=== PATIENT | female | born 1955 | race Caucasian/White ===

== ENCOUNTER 2016-11-25 10:13 | Emergency (ER) | payer SELFPAY ==
--- NOTE | 2016-11-25 10:32 | ER Document Report ---
ED Medical Screen (RME) - General Chief Complaint: High Blood Pressure Stated Complaint: BLOOD PRESSURE PROBLEM Time Seen by Provider: 11/25/16 10:30 Notes: pt says her bp is high and she feels "disconnected" for the last two weeks. Has not seen a doctor in 7 yrs until yesterday when she went to urgent care for nail puncture to foot. she is on cipro for that. TRAVEL OUTSIDE OF THE [place] IN LAST 30 DAYS: No - Related Data Allergies/Adverse Reactions: iodine Allergy (Verified 11/25/16 10:24) Past Medical History - Social History Frequency of alcohol use: None Drug Abuse: None Renal/ Medical History: Denies: Hx Peritoneal Dialysis Physical Exam - Vital signs Vitals: Temp Pulse Resp BP Pulse Ox 98.6 F 79 16 174/80 H 99 11/25/16 10:21 11/25/16 10:21 11/25/16 10:21 11/25/16 10:21 11/25/16 10:21 Course - Vital Signs Vital signs: Temp Pulse Resp BP Pulse Ox 98.6 F 79 16 174/80 H 99 11/25/16 10:21 11/25/16 10:21 11/25/16 10:21 11/25/16 10:21 11/25/16 10:21
--- NOTE | 2016-11-25 11:32 | ER Document Report ---
ED General - General Chief Complaint: High Blood Pressure Stated Complaint: BLOOD PRESSURE PROBLEM Time Seen by Provider: 11/25/16 10:30 Notes: Patient is here because she is concerned about her high blood pressure. She was at an urgent care yesterday because of a puncture wound of her foot and her blood pressure was 199 over something. She says that she has been feeling "disconnected" off and on for a couple of weeks. She means that she feels like she has had a couple glasses of wine and she does not drink alcohol. She has never had any problem with her blood pressure and never been told that she needed to be on any medications for her blood pressure. She had her blood pressure taken about 6 months ago when it was normal then. Her vision is somewhat blurry, but she thinks she needs glasses. She does not get headaches. Patient was seen in the urgent care because she had a puncture wound of her right foot, sustained when she stepped on a nail with her sneaker on on Wednesday. The foot did well on Wednesday and Wednesday, but later Wednesday it began to swell and was that way yesterday so she went to the urgent care. They put her on Cipro and gave her a tetanus shot. Patient says the foot is doing better today. Patient denies any chest pains, shortness of breath or difficulty breathing, PMH: Hysterectomy. Ear surgery 3 times long time ago. On no regular medications. Smoker. TRAVEL OUTSIDE OF THE [place] IN LAST 30 DAYS: No - Related Data Allergies/Adverse Reactions: iodine Allergy (Verified 11/25/16 10:24) Past Medical History - Social History Smoking Status: Current Every Day Smoker Frequency of alcohol use: None Drug Abuse: None Family History: Reviewed & Not Pertinent Patient has suicidal ideation: No Patient has homicidal ideation: No - Past Medical History Cardiac Medical History: Denies: Hx Coronary Artery Disease, Hx Hypercholesterolemia, Hx Hypertension Past Surgical History: Reports: Hx Hysterectomy, Other - Ear surgery 3 Review of Systems - Review of Systems Notes: REVIEW OF SYSTEMS: CONSTITUTIONAL : Denies fever. EENT: Denies eye, ear, nose or mouth or throat pain or other symptoms. CARDIOVASCULAR: Denies chest pain. RESPIRATORY: Denies cough, chest congestion, or shortness of breath. GASTROINTESTINAL: Denies abdominal pain or nausea, vomiting, or diarrhea. GENITOURINARY: Denies difficulty or painful urinating, urinary frequency, blood in urine. MUSCULOSKELETAL: Denies back or neck pain. Denies joint pain or swelling. SKIN: Denies rash or skin lesions. NEUROLOGICAL: Denies LOC or altered mental status. Says that she has felt "disconnected" off and on for a couple of weeks. Denies headache. Denies sensory loss or motor deficits. ALL OTHER SYSTEMS REVIEWED AND NEGATIVE. Physical Exam - Vital signs Vitals: Temp Pulse Resp BP Pulse Ox 98.6 F 79 16 174/80 H 99 11/25/16 10:21 11/25/16 10:21 11/25/16 10:21 11/25/16 10:21 11/25/16 10:21 Interpretation: Hypertensive - Modest - Notes Notes: PHYSICAL EXAMINATION: GENERAL: Well-appearing, in no acute distress. Vital signs were essentially normal with exception of her blood pressure which is a systolic of 150, maybe 160. HEAD: Atraumatic, normocephalic. EYES: Pupils equal round and reactive to light, extraocular movements intact. ENT: oropharynx clear without exudates. Moist mucous membranes. NECK: Normal range of motion, supple. Patient has very prominent bruits of both carotid arteries. LUNGS: Breath sounds clear and equal bilaterally. HEART: Regular rate and rhythm without murmurs. ABDOMEN: Soft, nontender. No guarding or rebound. BACK: No tenderness throughout entire back. EXTREMITIES: Normal range of motion without pain. NEUROLOGICAL: Normal speech, normal gait. Normal sensory, motor, and reflex exams. Awake, alert, and oriented x3. Cranial nerves normal. PSYCH: Normal mood, normal affect. SKIN: Warm, dry, no rashes. Course - Re-evaluation Re-evalutation: 11/25/16 20:[address] Parsons, vascular surgeon at [facility] in [place]. Since the patient has no neurologic signs or deficits it is our belief that the patient can be followed up soon as an outpatient in his clinic's, next week. I have already started her on aspirin and he asked me to also prescribe her a statin. She was given 20 mg of Lipitor here in the department and a prescription for the same amount daily. Patient was strongly encouraged to stop smoking. Explained all the findings to the patient and encouraged her to please keep her appointment to see the vascular surgeon in [place] next week. His office should be calling the patient to schedule an appointment time. She was told to return to the emergency department at anytime if she develops any neurologic symptoms or deficits. I am not going to try to lower the blood pressure any further than its current level around 160 systolic as I am concerned that lowering her blood pressure too much might prevent blood from flowing through her very narrowed arteries as they currently exist. - Vital Signs Vital signs: Temp Pulse Resp BP Pulse Ox 97.9 F 74 18 151/68 H 97 11/25/16 18:47 11/25/16 18:47 11/25/16 18:47 11/25/16 18:47 11/25/16 18:47 - Laboratory Result Diagrams: 11/25/16 11:30 11/25/16 11:30 Laboratory results interpreted by me: 11/25/16 11/25/16 10:36 11:30 WBC 11.0 H Hgb 15.8 H Urine Blood MODERATE H - Diagnostic Test Radiology reviewed: Image reviewed, Reports reviewed - CT scan of the brain, and MRIs of the vessels of the neck and [place] show the patient to have completely occluded carotid arteries on the right side and 80% occluded carotid arteries on her left side. Discharge - Discharge Clinical Impression: Bilateral carotid artery occlusion without cerebral infarction Condition: Fair Disposition: HOME, SELF-CARE Additional Instructions: Carotid Artery Atherosclerosis with Blockage: You have extremely severe atherosclerosis of the carotid arteries. Your right carotid artery is completely occluded and the left carotid artery is 80% occluded. The right side of your brain is receiving blood through the vessels on the left side of your brain so if you have an obstruction of that remaining 20% in the left carotid artery, you will lose blood supply to your brain and probably suffer a massive stroke or even . I am referring you to a vascular surgeon, Dr. Parsons, at [facility] in [place]. I have provided him with your telephone number and he will have 1 of his staff contact you in the next day or 2 for an appointment in their clinic next week. His office telephone number [phone]. Aspirin Aspirin has been shown to have a beneficial effect on blood circulation by reducing the clotting effect of platelets in the blood. These beneficial effects can be achieved by taking just a single baby (82.5 mg) aspirin a day. It is recommended that any person over the age of forty take a single baby aspirin every day for heart and brain circulation, unless you are allergic to aspirin or have some significant bleeding disorder. It is strongly recommended that people who have proven cardiac or blood circulation disturbances should take a baby aspirin every day. Stop Smoking You should stop smoking. The tar and chemicals in cigarette smoke are harmful. Smoking has been shown to cause: Emphysema and chronic bronchitis Lung cancer Cancer of the mouth, larynx, stomach, and pancreas Heart disease and stroke Stillbirths and miscarriage Premature aging In addition, smoking increases the chances of respiratory infections and ear infections in children of smokers, and increases the risk of cancer in persons exposed to second-hand smoke. Classes are available to help you stop smoking. If you are serious about wanting to quit, we can help arrange this therapy for you, or you can contact the local lung or cancer association. You have been given a prescription for Lipitor, a statin drug that will hopefully lower your cholesterol and keep your arteries from forming more atherosclerotic plaque. Fill your prescription tomorrow and begin taking it daily. FOLLOW-UP CARE: If you have been referred to a physician for follow-up care, call the physician s office for an appointment as you were instructed or within the next two days. If you experience worsening or a significant change in your symptoms, notify the physician immediately or return to the Emergency Department at any time for re-evaluation. At any time, if you develop any symptoms suggesting a stroke such as weakness of either arm or leg or face or difficulty with your balance or difficulty with her speech, you should return to the emergency department for immediate reevaluation. It is extremely important that you keep your appointment to be seen by Dr. Parsons, next week. Take all of your medical records with you to that visit. In particular, take a long the CD with all of your imaging studies on it. Continues to take your antibiotic for the puncture wound of your foot. Return for reevaluation if you note that the puncture wound seems to be swelling or getting red streaks. Prescriptions: Atorvastatin Calcium [Lipitor 20 mg Tablet] 20 mg PO QHS #30 tablet Forms: Return to Work
[2016-11-25 11:34] LABS: APPEARANCE,URINE CLEAR; BILIRUBIN,URINE NEGATIVE (NEGATIVE); GLUCOSE, URINE NEGATIVE (NEGATIVE); KETONES,URINE NEGATIVE (NEGATIVE); LEUKOCYTE ESTERASE,URINE NEGATIVE (NEGATIVE); NITRITE,URINE NEGATIVE (NEGATIVE); PROTEIN,URINE NEGATIVE (NEGATIVE); URINE SPECIFIC GRAVITY 1.006; UROBILINOGEN,URINE NEGATIVE mg/dL (<2.0)
[2016-11-25 11:50] LABS: ABSOLUTE BASOPHILS # (AUTO) 0.1 10^3/uL (0.0-0.2); ABSOLUTE EOSINOPHILS # (AUTO) 0.1 10^3/uL (0.0-0.6); ABSOLUTE LYMPHOCYTES (AUTO) 3.5 10^3/uL (0.5-4.7); ABSOLUTE MONOCYTES (AUTO) 0.6 10^3/uL (0.1-1.4); ABSOLUTE NEUT (AUTO) 6.7 10^3/uL (1.7-8.2); BASOPHILS % (AUTO) 0.8 % (0-2); HEMATOCRIT 45.4 % (36.0-47.0); HEMOGLOBIN 15.8 g/dL (12.0-15.5); LYMPHOCYTES % (AUTO) 31.7 % (13-45); MEAN CORPUSCULAR HEMOGLOBIN 30.5 pg (27.0-33.4); MEAN CORPUSCULAR HGB CONC 34.8 g/dL (32.0-36.0); MEAN CORPUSCULAR VOLUME 88 fl (80-97); MONOCYTES % (AUTO) 5.9 % (3-13); RED BLOOD COUNT 5.18 10^6/uL (3.72-5.28); SEGMENTED NEUTROPHILS % (AUTO) 60.6 % (42-78)
--- NOTE | 2016-11-25 11:51 | EKG REPORT ---
SEVERITY:- NORMAL ECG - SINUS RHYTHM : Confirmed by: Rose Gallardo 25-Nov-2016 11:51:04
[2016-11-25 12:05] LABS: ALANINE AMINOTRANSFERASE 35 U/L (9-52); ALBUMIN 4.6 g/dL (3.5-5.0); ALKALINE PHOSPHATASE 88 U/L (38-126); ANION GAP 13 (5-19); ASPARTATE AMINO TRANSFERASE 23 U/L (14-36); BILIRUBIN,DIRECT 0.4 mg/dL (0.0-0.4); BILIRUBIN,TOTAL 0.6 mg/dL (0.2-1.3); BLOOD UREA NITROGEN 14 mg/dL (7-20); CARBON DIOXIDE 22 mmol/L (22-30); CHLORIDE 107 mmol/L (98-107); CREATININE RESULT 0.54 mg/dL (0.52-1.25); GLUCOSE 91 mg/dL (75-110); POTASSIUM 4.3 mmol/L (3.6-5.0); SODIUM 141.5 mmol/L (137-145); TOTAL PROTEIN 7.6 g/dL (6.3-8.2)
[2016-11-25 12:17] LABS: CREATINE KINASE MB 0.78 ng/mL (<4.55)
[2016-11-25 12:23] LABS: TROPONIN I < 0.012 ng/mL
[2016-11-25] MEDS ORDERED: ASPIRIN 81 MG TABLET, CHEWABLE PO ONE (12:32)
--- NOTE | 2016-11-25 12:53 | RADIOLOGY REPORT (SQ) ---
EXAM DESCRIPTION: CT HEAD WITHOUT COMPLETED DATE/TIME: 11/25/2016 12:41 pm REASON FOR STUDY: Feeling disconnected, bilateral carotid bruits COMPARISON: None. TECHNIQUE: Axial images acquired through the brain without intravenous contrast. Images reviewed wi th bone, brain and subdural windows. Images stored on PACS. All CT scanners at this facility use dose modulation, iterative reconstruction, and/or weight based d osing when appropriate to reduce radiation dose to as low as reasonably achievable (ALARA). [facility]: Dose Right [facility]: CareDose [facility]: Dose Right [facility]: Teradose 4D [facility]: Smart SeatNinja RADIATION DOSE: Up-to-date CT equipment and radiation dose reduction techniques were employed. CTDIv ol: 64.6 mGy. DLP: 1034 mGy-cm. mGy. LIMITATIONS: None. FINDINGS: VENTRICLES: Normal size and contour. CEREBRUM: No masses. No hemorrhage. No midline shift. No evidence for acute infarction. There is a small area of decreased attenuation in the white matter on the right on image 20. CEREBELLUM: No masses. No hemorrhage. No alteration of density. No evidence for acute infarction. EXTRAAXIAL SPACES: No fluid collections. No masses. ORBITS AND GLOBE: No intra- or extraconal masses. Normal contour of globe without masses. CALVARIUM: No fracture. PARANASAL SINUSES: No fluid or mucosal thickening. SOFT TISSUES: No mass or hematoma. OTHER: No other significant finding. IMPRESSION: MILD CHRONIC MICROVASCULAR ISCHEMIA. NO ACUTE IMAGING FINDINGS IN THE BRAIN. COMMENT: Quality ID # [id number]: Final reports with documentation of one or more dose reduction techniques (e.g., Automated exposure control, adjustment of the mA and/or kV according to patient size, use of iterative reconstruction technique) TECHNICAL DOCUMENTATION: JOB ID: [id number] [employer] All Rights Reserved
--- NOTE | 2016-11-25 13:08 | RADIOLOGY REPORT (SQ) ---
EXAM DESCRIPTION: CAROTID DOPPLER COMPLETED DATE/TIME: 11/25/2016 12:46 pm REASON FOR STUDY: Bilateral carotid bruits COMPARISON: CT brain 11/25/2016 TECHNIQUE: Grayscale ultrasound, Doppler velocity and spectra, and color Doppler images acquired of the extra-cranial carotid and vertebral arteries. Images stored on PACS. LIMITATIONS: None. FINDINGS: RIGHT CAROTID CCA Velocities: Occluded ICA Velocities Peak systolic occluded End diastolic occluded The right external carotid artery appears to have retrograde flow, with filling of external carotid a rtery branches LEFT CAROTID CCA Velocities: Within normal limits. ICA Velocities Peak systolic 3.45 m/s. End diastolic 0.88 m/s. Proximal ICA/CCA peak systolic ratio 3.8. There is calcific plaque at the left carotid bifurcation. Proximal left internal carotid artery flow is turbulent, velocities suggest 50 to 69% stenosis. VERTEBRAL ARTERIES: There is antegrade pulsatile flow in both vertebral arteries. Increased diastoli c flow in both the right and left vertebral arteries is seen, likely compensating for the occluded ri ght carotid. SUBCLAVIAN ARTERIES: Not evaluated OTHER: Report called to Dr. Hernandez in the emergency room IMPRESSION: No flow is detected in the right common carotid artery or internal carotid artery. Find ings worrisome for occlusion, this may be chronic. Retrograde flow in the right external carotid artery 50 to 69% stenosis left proximal ICA based on velocity criteria Antegrade flow bilateral vertebral arteries. RECOMMENDATION: These findings were discussed with Dr. Riggs in the emergency room, [address] 017. Follow-up CT angio of the neck and [place] will be performed if possible COMMENT: Quality ID #[id number]: Velocity criteria are extrapolated from the diameter data as defined by t he Society of Radiologists in Ultrasound Consensus Conference. Radiology 2003: 229; 340-346. TECHNICAL DOCUMENTATION: JOB ID: [id number] [employer]- All Rights Reserved
[2016-11-25] MEDS ORDERED: ONDANSETRON HCL INJ/PF 4 MG/2 ML SDV IV ONE (13:18)
[2016-11-25] MEDS ORDERED: LORAZEPAM INJ 2 MG/1 ML VIAL IV ONE (13:18)
--- NOTE | 2016-11-25 15:32 | RADIOLOGY REPORT (SQ) ---
EXAM DESCRIPTION: MRI HEAD COMBO COMPLETED DATE/TIME: 11/25/2016 3:11 pm REASON FOR STUDY: Carotid obstruction on ultrasound COMPARISON: CT brain 11/25/2016 Carotid Doppler 11/25/2016 TECHNIQUE: Multiplanar imaging includes noncontrasted T1, T2, FLAIR, diffusion with ADC map and post gadolinium contrast T1 sequences. Images stored on PACS. CONTRAST TYPE AND DOSE: 20 mL Multihance. RENAL FUNCTION: GFR > 60. LIMITATIONS: None. FINDINGS: ANATOMY: No developmental anomalies. Normal vascular flow voids. Pituitary fossa normal. CSF SPACES: Normal in size and contour. No hemorrhage. CEREBRUM: Sulci and gyri normal in size and contour. Spotty increased bifrontal and biparietal white matter signal on FLAIR imaging from chronic small vessel disease. No evidence of hemorrhage, mass, o r extraaxial fluid collection. No abnormal enhancement post contrast. POSTERIOR FOSSA: No signal alteration. No hemorrhage. No edema, masses, or mass effect. Internal sylvia tory canals, cerebellopontine angles, mastoids normal. No enhancing lesions. No abnormal enhancement post contrast. DIFFUSION IMAGING: Negative for acute or subacute infarction. ORBITS: No masses. Globes normal. PARANASAL SINUSES: No fluid levels. Mucosa normal. OTHER: Absent flow signal and contrast enhancement of the right internal carotid artery at the skullb ase up to the level of the para clinoid ICA. IMPRESSION: No MR evidence of acute ischemic change. No acute intracranial hemorrhage mass effect or midline shift Absent contrast enhancement and flow signal in the right ICA at the skullbase. EVIDENCE OF ACUTE STROKE: NO. TECHNICAL DOCUMENTATION: JOB ID: [id number] [employer]- All Rights Reserved
--- NOTE | 2016-11-25 15:40 | RADIOLOGY REPORT (SQ) ---
EXAM DESCRIPTION: MRA HEAD WITHOUT COMPLETED DATE/TIME: 11/25/2016 3:11 pm REASON FOR STUDY: Carotid obstruction on ultrasound COMPARISON: Carotid Doppler 11/25/2016 CT brain 11/25/2016 MRI brain 11/25/2016 MRA of the neck 11/25/2016 TECHNIQUE: Axial 3-D [id number]-[id number] acquisition imaging performed through the brain in the area of t he [place]. Images reformatted using 3-D MIPS. LIMITATIONS: None. FINDINGS: Source images and maximum intensity projected images were reviewed. On both the source data and maximum intensity projected images, the right high cervical ICA, right IC A at the skullbase is occluded up to the level of the right para clinoid ICA. At this point, there i s flow signal identified in the right ophthalmic artery, flow signal in the right posterior communica ting artery, and flow signal in the anterior communicating artery without focal stenosis. The right middle cerebral and anterior cerebral artery demonstrates symmetric flow signal with the left. The left high cervical ICA, left ICA at the skullbase and left para clinoid ICA is widely patent. Th ere is minimal atherosclerotic irregularity along the medial aspect of the parasellar carotid with a less than 2 mm aneurysm on source image 72. Flow signal is identified in the left posterior communicating artery, the anterior communicating ramiro ry, the left anterior cerebral and middle cerebral arteries. No stenosis. The posterior intracranial circulation is unremarkable. Codominant vertebral arteries at the skullba se. Major posterior fossa branches are patent. Posterior cerebral arteries are patent. Bilateral p atent posterior communicating arteries. This result was discussed with Dr. Hernandez in the emergency room. IMPRESSION: Occluded right high cervical, petrous, and cavernous ICA Collateral flow through the [place] with symmetric flow signal in the bilateral anterior cer ebral arteries and middle cerebral arteries Unremarkable posterior fossa arterial circulation TECHNICAL DOCUMENTATION: JOB ID: [id number] [employer]- All Rights Reserved
--- NOTE | 2016-11-25 15:46 | RADIOLOGY REPORT (SQ) ---
EXAM DESCRIPTION: MRA NECK COMBO COMPLETED DATE/TIME: 11/25/2016 3:11 pm REASON FOR STUDY: Carotid obstruction on ultrasound COMPARISON: Carotid Doppler 11/25/2016 CT brain 11/25/2016 MRI brain without and with contrast 11/25/2016 MRA exam [place] TECHNIQUE: MRA of the carotid and vertebral arteries was performed using 2D and 3D sdra-gx-uyeiyj te chniques without and with the use of gadolinium. 3-D MIPs performed at the workstation and stored on PACS. CONTRAST TYPE AND DOSE: 20 mL Multihance. RENAL FUNCTION: GFR > 60. LIMITATIONS: None. FINDINGS: Source data and maximum intensity projected images were reviewed. Aortic arch and origins of the great vessels are intact. The right proximal common carotid artery is occluded within 1 cm of its origin. At the right carotid bifurcation, contrast enhancement and flow signal is seen only in external carot id artery branches. No flow signal or contrast enhancement of the right cervical internal carotid ar arnaldo. At the upper edge of the field of view there is contrast enhancement of the right para clinoid ICA, a nterior and middle cerebral arteries bilaterally, posterior cerebral arteries bilaterally. The left common carotid artery is widely patent. At the left carotid bifurcation, a very tight stenosis is present with a short flow gap at the distal common carotid artery/proximal internal carotid artery. There is poststenotic dilatation of the ICA . This indicates at least 80% diameter stenosis. This report was called as a critical finding to Dr Jaja Hernandez in the emergency room, 1515 hours, 11/25/2016. Left external carotid artery branches fill with contrast. Left cervical internal carotid artery, lef t ICA at the skullbase is patent. Codominant vertebral arteries are seen in the neck, without stenosis. Basilar artery, major posterio r fossa branches have normal contrast enhancement, without focal stenosis. Right and left subclavian arteries have normal contrast enhancement, without focal stenosis. IMPRESSION: Occluded right common carotid artery and cervical internal carotid artery. Tight stenosis with flow gap at the distal left common carotid artery/proximal left ICA at the caroti d bifurcation. This indicates at least 80% diameter stenosis. This report was called as a critical finding to the patient's emergency room provider, 1515 hours 11/25/2016. COMMENT: Quality ID #[id number]: Measurements of distal internal carotid diameter were used as the denomina tor for stenosis measurement. TECHNICAL DOCUMENTATION: JOB ID: [id number] [facility] [employer]- All Rights Reserved
[2016-11-25] MEDS ORDERED: ATORVASTATIN CALCIUM 20 MG TABLET PO ONE (17:57)
[2016-11-25 19:02] VITALS: BP 151/68
== END 2016-11-25 19:02 | disposition home or self-care (01) ==
LOC: ER 10:13
DX: I65.23 Occlusion and stenosis of bilateral carotid arteries (principal); R03.0 Elevated blood-pressure reading, without diagnosis of hypertension; H53.8 Other visual disturbances; F17.200 Nicotine dependence, unspecified, uncomplicated; Z90.710 Acquired absence of both cervix and uterus
CPT/HCPCS: 93005; 99284; 96374; 96375; 36415; 82553; 85025; 80053; 81001; 84484; 93880; 70553; 93010; 70544; 70549; 70450; A9577; J2060; J2405

== ENCOUNTER 2017-03-27 05:55 | Inpatient (IN) | payer OTHER ==
[2017-03-27] MEDS ORDERED: HYDRALAZINE HCL INJ/PF 20 MG/1 ML SDV IV ONE (06:19)
[2017-03-27] MEDS ORDERED: PROCHLORPERAZINE EDISYLATE INJ 10 MG/2 ML VIAL IV ONE ×2 (06:19→23:07)
[2017-03-27] MEDS ORDERED: DIPHENHYDRAMINE HCL 50 MG/ML VIAL IV ONE ×2 (06:19→23:18)
--- NOTE | 2017-03-27 06:24 | ER Document Report ---
ED General - General Chief Complaint: Headache Stated Complaint: HEADACHE Time Seen by Provider: 03/27/17 06:09 Mode of Arrival: Medic Information source: Patient Notes: 61-year-old female presents with complaints of a headache that has been ongoing since her carotid endarterectomy was performed 12 days prior. Patient noted the headache is worsened since last night patient states she has been taking Tylenol and Aleve for her headaches. Patient denies any neurological complaints admits to nausea and vomiting. TRAVEL OUTSIDE OF THE [place] IN LAST 30 DAYS: No - HPI Onset: Other - 12 days Onset/Duration: Persistent, Worse Quality of pain: Achy Severity: Moderate Pain Level: 3 Associated symptoms: Headache, Nausea, Vomiting Exacerbated by: Other - Light Relieved by: Other - Tylenol Motrin Similar symptoms previously: Yes Recently seen / treated by doctor: Yes - Related Data Allergies/Adverse Reactions: iodine Allergy (Verified 11/25/16 10:24) Past Medical History - Social History Smoking Status: Current Every Day Smoker Cigarette use (# per day): Yes Chew tobacco use (# tins/day): No Smoking Education Provided: No Family History: Reviewed & Not Pertinent Patient has suicidal ideation: No Patient has homicidal ideation: No - Past Medical History Cardiac Medical History: Denies: Hx Coronary Artery Disease, Hx Hypercholesterolemia, Hx Hypertension Renal/ Medical History: Denies: Hx Peritoneal Dialysis Past Surgical History: Reports: Hx Hysterectomy, Other - Ear surgery 3 Review of Systems - Review of Systems Notes: REVIEW OF SYSTEMS: CONSTITUTIONAL : Denies fever, chills, or sweats. Denies recent illness. EENT: Denies eye, ear, throat, or mouth pain or symptoms. Denies nasal or sinus congestion or discharge. Denies throat, tongue, or mouth swelling or difficulty swallowing. CARDIOVASCULAR: Denies chest pain. Denies palpitations or racing or irregular heart beat. Denies ankle edema. RESPIRATORY: Denies cough, cold, or chest congestion. Denies shortness of breath, difficulty breathing, or wheezing. GASTROINTESTINAL: Admits to nausea vomiting GENITOURINARY: Denies difficulty urinating, painful urination, burning, frequency, blood in urine, or discharge. FEMALE GENITOURINARY: Denies vaginal bleeding, heavy or abnormal periods, irregular periods. Denies vaginal discharge or odor. MUSCULOSKELETAL: Denies back or neck pain or stiffness. Denies joint pain or swelling. SKIN: Denies rash, lesions or sores. HEMATOLOGIC : Denies easy bruising or bleeding. LYMPHATIC: Denies swollen, enlarged glands. NEUROLOGICAL: Admits to headache PSYCHIATRIC: Denies anxiety or stress. Denies depression, suicidal ideation, or homicidal ideation. ALL OTHER SYSTEMS REVIEWED AND NEGATIVE. PHYSICAL EXAMINATION: GENERAL: Well-appearing, well-nourished and in moderate distress hypertensive HEAD: Atraumatic, normocephalic. EYES: Pupils equal round and reactive to light, extraocular movements intact, conjunctiva are normal. ENT: Nares patent, oropharynx clear without exudates. Moist mucous membranes. NECK: Normal range of motion, supple without lymphadenopathy LUNGS: Breath sounds clear to auscultation bilaterally and equal. No wheezes rales or rhonchi. HEART: Regular rate and rhythm without murmurs ABDOMEN: Soft, nontender, nondistended abdomen. No guarding, no rebound. No masses appreciated. Female : deferred Musculoskeletal: Normal range of motion, no pitting or edema. No cyanosis. NEUROLOGICAL: Cranial nerves grossly intact. Normal speech, normal gait. Normal sensory, motor exams PSYCH: Normal mood, normal affect. SKIN: Surgical scar left neck Dictation was performed using [employer] voice recognition software Physical Exam - Vital signs Vitals: Resp Pulse Ox 17 98 03/27/17 06:16 03/27/17 06:16 Course - Re-evaluation Re-evalutation: 03/27/17 06:24 Patient appears to have a headache that is causing her moderate amount of distress, she has been emergently started on medication for her blood pressure as well as for her headache, the headache has been constant for the past 12 days , a CTA head and neck has been ordered, it is noted the patient has 100% blockage of the right carotid and 80% on the left 03/27/17 07:11 Patient notes her headache is completely resolved 03/27/17 07:49 [facility] paged , pt symptoms have iproved 03/27/17 08:20 Spoke with avascular surgeon at [facility], he believes patients white count is from the nausea vomiting, no concern for infection or intracranial , he suggests blood pressure control [facility] patient is not currently on 03/27/17 08:21 - Vital Signs Vital signs: Temp Pulse Resp BP Pulse Ox 97.5 F 15 132/58 H 98 03/27/17 07:53 03/27/17 07:31 03/27/17 07:31 03/27/17 07:31 - Laboratory Result Diagrams: 03/27/17 06:33 03/27/17 06:33 Laboratory results interpreted by me: 03/27/17 03/27/17 06:33 06:33 WBC 21.2 H Seg Neuts % (Manual) 88 H Lymphocytes % (Manual) 11 L Monocytes % (Manual) 1 L Abs Neuts (Manual) 18.7 H Glucose 135 H Calcium 10.6 H - Diagnostic Test Radiology reviewed: Image reviewed, Reports reviewed Critical Care Note - Critical Care Note Total time excluding time spent on procedures (mins): 34 Comments: 34 minutes of critical care time spent in direct contact evaluating and reevaluating the patient, treating symptoms, reviewing labs and studies and speaking with family and consultants excluding any procedures Discharge - Discharge Clinical Impression: Nausea & vomiting Qualifiers: Vomiting type: unspecified Vomiting Intractability: non-intractable Qualified Code(s): R11.2 - Nausea with vomiting, unspecified Headache Qualifiers: Headache type: unspecified Headache chronicity pattern: acute headache Intractability: not intractable Qualified Code(s): R51 - Headache HTN (hypertension) Qualifiers: Hypertension type: essential hypertension Qualified Code(s): I10 - Essential ( primary) hypertension Condition: Stable Disposition: ADMITTED OBSERVATION Admitting Provider: Hospitalist Unit Admitted: Telemetry
[2017-03-27] MEDS ORDERED: DEXAMETHASONE SOD PHOS INJ 10 MG/1 ML VIAL IV ONE (06:35)
[2017-03-27] MEDS ORDERED: FAMOTIDINE INJ/PF 20 MG/2 ML SDV IV ONE (06:35)
[2017-03-27] MEDS ORDERED: ONDANSETRON HCL INJ/PF 4 MG/2 ML SDV IV ONE (06:45)
[2017-03-27 06:47] LABS: HEMATOCRIT 43.7 % (36.0-47.0); HEMOGLOBIN 15.2 g/dL (12.0-15.5); MEAN CORPUSCULAR HEMOGLOBIN 30.2 pg (27.0-33.4); MEAN CORPUSCULAR HGB CONC 34.8 g/dL (32.0-36.0); MEAN CORPUSCULAR VOLUME 87 fl (80-97); PLATELET COUNT 371 10^3/uL (150-450); RED BLOOD COUNT 5.05 10^6/uL (3.72-5.28); RED CELL DISTRIBUTION WIDTH 13.3 % (11.5-14.0); WHITE BLOOD COUNT 21.2 10^3/uL (4.0-10.5)
[2017-03-27] MEDS ORDERED: ONDANSETRON HCL INJ/PF 4 MG/2 ML SDV ONE (06:47)
[2017-03-27 07:07] LABS: ABSOLUTE LYMPHOCYTES# (MANUAL) 2.3 10^3/uL (0.5-4.7); ABSOLUTE MONOCYTES # (MANUAL) 0.2 10^3/uL (0.1-1.4); ABSOLUTE NEUTROPHILS# (MANUAL) 18.7 10^3/uL (1.7-8.2); BASOPHILS % (MANUAL) 0 % (0-2); EOSINOPHILS % (MANUAL) 0 % (0-6); LYMPHOCYTES % (MANUAL) 11 % (13-45); MONOCYTES % (MANUAL) 1 % (3-13); PLATELET COMMENT ADEQUATE; RBC MORPHOLOGY COMMENT NORMO-CYTIC/CHROMIC; SEGMENTED NEUTROPHILS % (MAN) 88 % (42-78); TOTAL CELLS COUNTED 100; TOXIC GRANULATION 1+
[2017-03-27 07:12] LABS: ALANINE AMINOTRANSFERASE 50 U/L (9-52); ALBUMIN 4.7 g/dL (3.5-5.0); ALKALINE PHOSPHATASE 85 U/L (38-126); ANION GAP 15 (5-19); ASPARTATE AMINO TRANSFERASE 34 U/L (14-36); BILIRUBIN,DIRECT 0.2 mg/dL (0.0-0.4); BILIRUBIN,TOTAL 0.3 mg/dL (0.2-1.3); BLOOD UREA NITROGEN 18 mg/dL (7-20); CALCIUM 10.6 mg/dL (8.4-10.2); CARBON DIOXIDE 25 mmol/L (22-30); CHLORIDE 101 mmol/L (98-107); GLUCOSE 135 mg/dL (75-110); SODIUM 140.5 mmol/L (137-145); TOTAL PROTEIN 7.8 g/dL (6.3-8.2)
--- NOTE | 2017-03-27 07:45 | RADIOLOGY REPORT (SQ) ---
EXAM DESCRIPTION: 1. CTA of the head with contrast. 2. CTA of the neck with contrast. CLINICAL HISTORY: recent carotidectomy COMPARISON: 11/25/2016 TECHNIQUE: CTA of the intracranial contents as well as the neck obtained following the uncomplicated intravenous administration of 69 mL Isovue-370. Patient was premedicated due to reported iodine allergy. 3-D/MIP reformatted images available. DLP: 419.12 mGycm FINDINGS: CTA head: The right intracranial internal carotid artery is occluded to the level of the paraclinoid carotid artery where there is inflow from the posterior communicating artery, ophthalmic artery, and anterior communicating artery. The A1 and M1 segments of the right anterior middle cerebral arteries are symmetric to the left. The left intracranial internal carotid artery is patent without evidence of stenosis. The left intracranial ICA bifurcates into patent A1 and M1 segments. The posterior communicating artery is patent on the left. No aneurysm identified in the anterior circulation. The intracranial vertebral arteries are widely patent and combined to form a widely patent basilar artery. Basilar artery bifurcates into patent P1 segments of the posterior cerebral artery. No evidence of stenosis, occlusion, or aneurysm. CTA NECK: Left carotid: Left common carotid artery is widely patent from its origin of the aortic arch. Postoperative changes compatible with endarterectomy. No evidence of stenosis or occlusion. 0% stenosis by NASCET Criteria. The external carotid artery is patent. No evidence of dissection or aneurysm. Right carotid: There is complete occlusion of the right common and internal carotid arteries throughout nearly the entire length beginning within 1 cm above its origin. Some flow is identified in the the branches of the external carotid artery likely related to collateral blood flow. No evidence of dissection or aneurysm. Cervical vertebral arteries are symmetric without evidence of stenosis, occlusion, aneurysm, or dissection. Soft tissues demonstrate no definite abnormalities of the lung apices. No lymphadenopathy in the superior mediastinum. No abnormalities of visualized thyroid gland. No cervical lymphadenopathy. No definite abnormalities in the soft tissues of the neck identified. Visualized intracranial contents demonstrate no acute abnormalities. Degenerative change of the spine. Paranasal sinuses and mastoid air cells are well aerated. Orbits and globes are unremarkable. IMPRESSION: 1. Redemonstrated occlusion of the intracranial right ICA to the level of the paraclinoid right ICA where there is reconstitution of flow through multiple channels of the [place]. Symmetric flow within the bilateral anterior middle cerebral arteries. 2. Redemonstrated complete occlusion of the right common and cervical internal carotid arteries beginning within 1 cm of its origin. 3. The left common and internal carotid arteries are widely patent. No evidence of stenosis. Postoperative change compatible with endarterectomy. This exam was performed according to our departmental dose-optimization program, which includes automated exposure control, adjustment of the mA and/or kV according to patient size and/or use of iterative reconstruction technique.
[2017-03-27] MEDS ORDERED: METOCLOPRAMIDE HCL INJ/PF 10 MG/2 ML SDV IV ONE (07:46)
[2017-03-27] MEDS ORDERED: LORAZEPAM INJ 2 MG/1 ML VIAL IV ONE ×2 (07:52→23:18)
[2017-03-27] MEDS ORDERED: HALOPERIDOL LACTATE INJ 5 MG/1 ML VIAL IV ONE (08:27)
[2017-03-27] MEDS ORDERED: NORMAL SALINE 1000 ML 1,000 ML IV PRN ×2 (08:43→23:19)
[2017-03-27] MEDS ORDERED: HYDRALAZINE HCL INJ/PF 20 MG/1 ML SDV IV PRN ×2 (10:59→16:55)
[2017-03-27] MEDS: DIAZEPAM 2 MG TABLET PO SCH ×3 (12:25→23:27)
[2017-03-27 18:09] LABS: APPEARANCE,URINE CLEAR; BILIRUBIN,URINE NEGATIVE (NEGATIVE); COLOR,URINE YELLOW; GLUCOSE, URINE 50 mg/dL (NEGATIVE); KETONES,URINE NEGATIVE (NEGATIVE); LEUKOCYTE ESTERASE,URINE NEGATIVE (NEGATIVE); NITRITE,URINE NEGATIVE (NEGATIVE); PROTEIN,URINE 30 mg/dL (NEGATIVE); URINE SPECIFIC GRAVITY 1.027; UROBILINOGEN,URINE NEGATIVE mg/dL (<2.0)
[2017-03-27 18:27] LABS: URINE AMPHETAMINES SCREEN NEGATIVE; URINE BARBITURATES SCREEN NEGATIVE; URINE BENZODIAZEPINES SCREEN NEGATIVE; URINE COCAINE SCREEN NEGATIVE; URINE MARIJUANA (THC) SCREEN NEGATIVE; URINE METHADONE SCREEN NEGATIVE; URINE PHENCYCLIDINE SCREEN NEGATIVE
[2017-03-27] MEDS: OXYCODONE HCL IR 5 MG TABLET PO PRN (21:50)
[2017-03-27] MEDS ORDERED: NORMAL SALINE 1000 ML 1,000 ML IV ONE (23:04)
[2017-03-27] MEDS ORDERED: PROCHLORPERAZINE EDISYLATE INJ 10 MG/2 ML VIAL ONE (23:20)
--- NOTE | 2017-03-27 23:29 | Progress Note ---
Provider Note Provider Note: S:Called by patient nurse for headache and reports that patient cannot see. Patient BP found to be 140's/90, significantly decreased from admission. Patient reports frontal headache for several days and is quite anxious moving all extremities. O: VSS Gen; A+Ox3, mild pain, anxious HEENT: Miotic pupils, round, reactive minimally to light, dry mucosa Chest: CTAB CV: mildly tachycardic, nl s1,s2, no m/r/g Abd: soft, NTTP, ND, +BS Ext: No edema Neuro: CN 2-12 grossly intact, strength equal BUE, BLE 5/5, no pronator drift Psych: Anxious A/P: 61yo WF with hypertensive emergency 1. Give 1L NS bolus. Goal SBP should be no less than 20% of initial BP 2. Obtain Stat CT head 3. Headache: give benadryl, ativan, compazine, and obtain CT head 4. Continue to monitor for change 5. Dehydration: initiate on IVF
--- NOTE | 2017-03-28 00:19 | RADIOLOGY REPORT (SQ) ---
EXAM DESCRIPTION: CT HEAD WITHOUT CLINICAL HISTORY: severe headache COMPARISON: 11/25/2016 TECHNIQUE: Axial CT of the head obtained from the skull apex to the skull base without contrast. FINDINGS: No acute intracranial hemorrhage identified. No mass, mass effect, shift of the midline, abnormal extra-axial fluid collection or CT evidence of acute ischemic change identified. The ventricular system is unremarkable. No acute abnormalities of the supratentorial white matter, basal ganglia, cerebellum, or brainstem. The visualized paranasal sinuses are clear. No skull fracture identified. Visualized orbits and globes are unremarkable. DLP:1267.44 mGy-cm IMPRESSION: 1. No acute intracranial abnormality identified. This exam was performed according to our departmental dose-optimization program, which includes automated exposure control, adjustment of the mA and/or kV according to patient size and/or use of iterative reconstruction technique.
[2017-03-28] MEDS: DIAZEPAM 2 MG TABLET PO SCH ×2 (05:53→13:02)
[2017-03-28] MEDS ORDERED: NORMAL SALINE 1000 ML 1,000 ML IV PRN (07:10)
[2017-03-28 07:13] LABS: HEMATOCRIT 38.4 % (36.0-47.0); MEAN CORPUSCULAR HEMOGLOBIN 29.6 pg (27.0-33.4); MEAN CORPUSCULAR HGB CONC 33.7 g/dL (32.0-36.0); MEAN CORPUSCULAR VOLUME 88 fl (80-97); PLATELET COUNT 318 10^3/uL (150-450); RED BLOOD COUNT 4.38 10^6/uL (3.72-5.28); RED CELL DISTRIBUTION WIDTH 13.4 % (11.5-14.0); WHITE BLOOD COUNT 21.9 10^3/uL (4.0-10.5)
[2017-03-28 07:19] LABS: HEMOGLOBIN 12.9 g/dL (12.0-15.5)
[2017-03-28 07:42] LABS: ANION GAP 13 (5-19); BLOOD UREA NITROGEN 13 mg/dL (7-20); CARBON DIOXIDE 22 mmol/L (22-30); CHLORIDE 106 mmol/L (98-107); GLUCOSE 96 mg/dL (75-110); POTASSIUM 3.5 mmol/L (3.6-5.0); SODIUM 141.1 mmol/L (137-145)
[2017-03-28] MEDS ORDERED: LISINOPRIL 10 MG TABLET PO SCH (10:00)
[2017-03-28] MEDS: ATORVASTATIN CALCIUM 40 MG TABLET PO SCH (10:03)
[2017-03-28] MEDS: ASPIRIN 81 MG TABLET, ENT COATED PO SCH (10:03)
[2017-03-28] MEDS: METOPROLOL SUCCINATE 25 MG TAB.SR.24H PO SCH (10:03)
[2017-03-28] MEDS ORDERED: LISINOPRIL 5 MG TABLET PO SCH (12:00)
[2017-03-28] MEDS: NICOTINE 14 MG/24 HR PATCH.TD24 TD SCH (13:05)
--- NOTE | 2017-03-28 17:04 | PDOC H&P ---
History of Present Illness Admission Date/PCP: 03/27/17 08:45 Patient complains of: Vomiting History of Present Illness: MANOJ FELIX is a 61 year old female with a history of coronary artery disease status post left endarterectomy at [facility] approximately 2 weeks ago presenting with elevated blood pressures 200s/130s. Patient was hysterical in the ED therefore she was given Haldol and Ativan and Benadryl. Patient is not awake for me to communicate with her. Per the ED staff patient recently had a endarterectomy she does not have any other history and was not on any antihypertensive medications. Patient however was extremely hypertensive. Patient was given 10 mg IV hydralazine and blood pressure came down to 132/58. Patient did discuss patient's condition with her vascular surgeon in [place] who requested that we keep patient overnight to monitor her blood pressure. In the ED patient was noted to be hypertensive for which she was treated. Patient also had leukocytosis of 21,000 however was afebrile. Hospitalist called to admit patient for hypertensive emergency. Past Medical History Cardiac Medical History: Reports: Hypertension, Peripheral Vascular Disease Denies: Coronary Artery Disease, Hyperlipidema Past Surgical History Past Surgical History: Reports: Hysterectomy, Other - Ear surgery 3 Social History Smoking Status: Former Smoker - Advance Directive Resuscitation Status: Full Code Family History Family History: Other - from complications of surgery Parental Family History Reviewed: No Children Family History Reviewed: No Sibling(s) Family History Reviewed.: No Medication/Allergy Home Medications: Aspirin [Adult Low Dose Aspirin EC] 81 mg PO DAILY 03/27/17 Atorvastatin Calcium [Lipitor 40 mg Tablet] 40 mg PO DAILY 03/27/17 Oxycodone HCl [Oxy-Ir 5 mg Tablet] 5 mg PO Q6HP PRN MDD ONLY FOR 5 DAYS Allergies/Adverse Reactions: iodine Allergy (Verified 11/25/16 10:24) Review of Systems ROS unobtainable: Due to mental status Constitutional: ABSENT: chills, fever(s), headache(s), weight gain, weight loss Eyes: ABSENT: visual disturbances Ears: ABSENT: hearing changes Cardiovascular: ABSENT: chest pain, dyspnea on exertion, edema, orthropnea, palpitations Respiratory: ABSENT: cough, hemoptysis Gastrointestinal: ABSENT: abdominal pain, constipation, diarrhea, hematemesis, hematochezia, nausea, vomiting Genitourinary: ABSENT: dysuria, hematuria Musculoskeletal: ABSENT: joint swelling Integumentary: ABSENT: rash, wounds Neurological: ABSENT: abnormal gait, abnormal speech, confusion, dizziness, focal weakness, syncope Psychiatric: ABSENT: anxiety, depression, homidical ideation, suicidal ideation Endocrine: ABSENT: cold intolerance, heat intolerance, polydipsia, polyuria Hematologic/Lymphatic: ABSENT: easy bleeding, easy bruising Physical Exam Vital Signs: Temp Pulse Resp BP Pulse Ox 97.9 F 94 16 168/90 H 96 03/28/17 15:56 03/28/17 15:56 03/28/17 15:56 03/28/17 15:56 03/28/17 15:56 Intake & Output 03/27/17 03/28/17 03/29/17 06:59 06:59 06:59 Intake Total 340 386 Output Total 1000 900 Balance -660 -514 Weight 54.5 kg General appearance: PRESENT: no acute distress, thin, well-developed, well- nourished Head exam: PRESENT: atraumatic, normocephalic Eye exam: PRESENT: conjunctiva pink, EOMI, PERRLA. ABSENT: scleral icterus Ear exam: PRESENT: normal external ear exam Mouth exam: PRESENT: moist, tongue midline, other - left neck scar Neck exam: ABSENT: carotid bruit, JVD, lymphadenopathy, thyromegaly Respiratory exam: PRESENT: clear to auscultation aracelis. ABSENT: rales, rhonchi, wheezes Cardiovascular exam: PRESENT: RRR. ABSENT: diastolic murmur, rubs, systolic murmur Pulses: PRESENT: normal dorsalis pedis pul Vascular exam: PRESENT: normal capillary refill GI/Abdominal exam: PRESENT: normal bowel sounds, soft. ABSENT: distended, guarding, mass, organolmegaly, rebound, tenderness Rectal exam: PRESENT: deferred Extremities exam: PRESENT: full ROM. ABSENT: calf tenderness, clubbing, pedal edema Neurological exam: ABSENT: motor sensory deficit Psychiatric exam: ABSENT: homicidal ideation, suicidal ideation Skin exam: PRESENT: dry, intact, warm. ABSENT: cyanosis, rash Results Laboratory Results: 03/28/17 06:19 03/28/17 06:19 03/27/17 03/28/17 03/28/17 17:35 06:19 06:19 WBC 21.9 H RBC 4.38 Hgb 12.9 D Hct 38.4 MCV 88 MCH 29.6 MCHC 33.7 RDW 13.4 Plt Count 318 Sodium 141.1 Potassium 3.5 L Chloride 106 Carbon Dioxide 22 Anion Gap 13 BUN 13 Creatinine 0.45 L Est GFR ( Amer) > 60 Est GFR (Non-Af Amer) > 60 Glucose 96 Calcium 10.0 Magnesium 1.6 Urine Color YELLOW Urine Appearance CLEAR Urine pH 6.0 Ur Specific [place] 1.027 Urine Protein 30 H Urine Glucose (UA) 50 H Urine Ketones NEGATIVE Urine Blood MODERATE H Urine Nitrite NEGATIVE Ur Leukocyte Esterase NEGATIVE Urine WBC (Auto) 4 Urine RBC (Auto) 24 Impressions: Head CT 03/27/17 00:00 IMPRESSION: 1. No acute intracranial abnormality identified. This exam was performed according to our departmental dose-optimization program, which includes automated exposure control, adjustment of the mA and/or kV according to patient size and/or use of iterative reconstruction technique. Head CTA 03/27/17 06:10 IMPRESSION: 1. Redemonstrated occlusion of the intracranial right ICA to the level of the paraclinoid right ICA where there is reconstitution of flow through multiple channels of the [place]. Symmetric flow within the bilateral anterior middle cerebral arteries. 2. Redemonstrated complete occlusion of the right common and cervical internal carotid arteries beginning within 1 cm of its origin. 3. The left common and internal carotid arteries are widely patent. No evidence of stenosis. Postoperative change compatible with endarterectomy. This exam was performed according to our departmental dose-optimization program, which includes automated exposure control, adjustment of the mA and/or kV according to patient size and/or use of iterative reconstruction technique. Neck CTA 03/27/17 06:10 IMPRESSION: 1. Redemonstrated occlusion of the intracranial right ICA to the level of the paraclinoid right ICA where there is reconstitution of flow through multiple channels of the [place]. Symmetric flow within the bilateral anterior middle cerebral arteries. 2. Redemonstrated complete occlusion of the right common and cervical internal carotid arteries beginning within 1 cm of its origin. 3. The left common and internal carotid arteries are widely patent. No evidence of stenosis. Postoperative change compatible with endarterectomy. This exam was performed according to our departmental dose-optimization program, which includes automated exposure control, adjustment of the mA and/or kV according to patient size and/or use of iterative reconstruction technique. Assessment & Plan - Diagnosis (1) Hypertensive emergency Is this a current diagnosis for this admission?: Yes Plan: Presenting with hypertensive emergency with systolics in the 200s/130s. Patient also with headache, and confusion. Patient given hydralazine in the ED which brought her blood pressure down. Will attempt not to bring patient blood pressures down to low. Systolics of 160s are acceptable especially with a systolic in the 220s. Patient will have as needed hydralazine. Will start patient on metoprolol scheduled for her tachycardia and low-dose lisinopril. (2) Hypertensive encephalopathy Is this a current diagnosis for this admission?: Yes Plan: Patient is confused and hysterical. This may be secondary to her hypertension. Will control patient blood pressures and monitor closely. (3) Carotid stenosis Qualifiers: Laterality: bilateral Qualified Code(s): I65.23 - Occlusion and stenosis of bilateral carotid arteries Is this a current diagnosis for this admission?: Yes Plan: Is status post left cardiectomy which was completely divided. Patient vascular surgeon was contacted and he recommended that we keep patient for adequate blood pressure control. CTA was completed which showed occlusion of the right ICA the patent left carotid and internal carotid artery. Patient continued on statin and aspirin. (4) Headache Qualifiers: Headache type: unspecified Headache chronicity pattern: acute headache Intractability: not intractable Qualified Code(s): R51 - Headache Is this a current diagnosis for this admission?: Yes Plan: Most likely due to her hypertension. CT head was completed and was negative. Will monitor control patient blood pressures. Will give as needed pain medications. (5) Nausea & vomiting Qualifiers: Vomiting type: unspecified Vomiting Intractability: non-intractable Qualified Code(s): R11.2 - Nausea with vomiting, unspecified Is this a current diagnosis for this admission?: Yes Plan: Due to her hypertension. Patient will be given antiemetics. However this may subside patient blood pressures are controlled. (6) Leukocytosis Is this a current diagnosis for this admission?: Yes Plan: Patient with leukocytosis could be reactive however patient was vomiting and may have aspirated therefore developed aspiration pneumonitis. Will hydrate and monitor. Leukocytosis not improving will start antibiotic. - Time Time Spent: 30 to 50 Minutes Anticipated discharge: Home Within: within 48 hours
--- NOTE | 2017-03-28 17:14 | PDOC PROGRESS REPORT ---
Subjective Progress Note for:: 03/28/17 Subjective:: Patient is a 61-year-old female with with a history of bilateral carotid stenosis status post left endarterectomy presented with hypertensive emergency and hypertensive encephalopathy. Patient recently had her endarterectomy done and does not have any known history of hypertension however was extremely hypertensive on presentation and was symptomatic with vomiting and headache. Patient now with persistent leukocytosis ptosis most likely secondary to aspiration pneumonitis. Patient states she is feeling confused but now is doing better. Patient states she has never had anything like this before. Reason For Visit: HYPERTENSIVE EMERGENCY LEUKOCYTOSIS Physical Exam Vital Signs: Temp Pulse Resp BP Pulse Ox 97.9 F 94 16 168/90 H 96 03/28/17 15:56 03/28/17 15:56 03/28/17 15:56 03/28/17 15:56 03/28/17 15:56 Intake & Output 03/27/17 03/28/17 03/29/17 06:59 06:59 06:59 Intake Total 340 386 Output Total 1000 900 Balance -660 -514 Weight 54.5 kg General appearance: PRESENT: no acute distress, thin, well-developed, well- nourished Head exam: PRESENT: normocephalic Eye exam: PRESENT: EOMI. ABSENT: scleral icterus Ear exam: PRESENT: normal external ear exam Mouth exam: PRESENT: moist, neck supple, other - Left neck surgical scar Neck exam: ABSENT: carotid bruit, JVD, lymphadenopathy, thyromegaly Respiratory exam: PRESENT: clear to auscultation aracelis. ABSENT: rales, rhonchi, wheezes Cardiovascular exam: PRESENT: RRR. ABSENT: diastolic murmur, rubs, systolic murmur Pulses: PRESENT: normal dorsalis pedis pul Vascular exam: PRESENT: normal capillary refill GI/Abdominal exam: PRESENT: normal bowel sounds, soft. ABSENT: distended, guarding, mass, organolmegaly, rebound, tenderness Rectal exam: PRESENT: deferred Extremities exam: PRESENT: full ROM. ABSENT: calf tenderness, clubbing, pedal edema Neurological exam: PRESENT: alert, awake, oriented to person, oriented to place , oriented to time, oriented to situation, CN II-XII grossly intact. ABSENT: motor sensory deficit Psychiatric exam: PRESENT: appropriate affect, normal mood. ABSENT: homicidal ideation, suicidal ideation Skin exam: PRESENT: dry, intact, warm. ABSENT: cyanosis, rash Results Laboratory Results: 03/28/17 06:19 03/28/17 06:19 03/27/17 03/28/17 03/28/17 17:35 06:19 06:19 WBC 21.9 H RBC 4.38 Hgb 12.9 D Hct 38.4 MCV 88 MCH 29.6 MCHC 33.7 RDW 13.4 Plt Count 318 Sodium 141.1 Potassium 3.5 L Chloride 106 Carbon Dioxide 22 Anion Gap 13 BUN 13 Creatinine 0.45 L Est GFR ( Amer) > 60 Est GFR (Non-Af Amer) > 60 Glucose 96 Calcium 10.0 Magnesium 1.6 Urine Color YELLOW Urine Appearance CLEAR Urine pH 6.0 Ur Specific [place] 1.027 Urine Protein 30 H Urine Glucose (UA) 50 H Urine Ketones NEGATIVE Urine Blood MODERATE H Urine Nitrite NEGATIVE Ur Leukocyte Esterase NEGATIVE Urine WBC (Auto) 4 Urine RBC (Auto) 24 Impressions: Head CT 03/27/17 00:00 IMPRESSION: 1. No acute intracranial abnormality identified. This exam was performed according to our departmental dose-optimization program, which includes automated exposure control, adjustment of the mA and/or kV according to patient size and/or use of iterative reconstruction technique. Head CTA 03/27/17 06:10 IMPRESSION: 1. 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 Symmetric flow within the bilateral anterior middle cerebral arteries. 2. Redemonstrated complete occlusion of the right common and cervical internal carotid arteries beginning within 1 cm of its origin. 3. The left common and internal carotid arteries are widely patent. No evidence of stenosis. Postoperative change compatible with endarterectomy. This exam was performed according to our departmental dose-optimization program, which includes automated exposure control, adjustment of the mA and/or kV according to patient size and/or use of iterative reconstruction technique. Neck CTA 03/27/17 06:10 IMPRESSION: 1. 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 Symmetric flow within the bilateral anterior middle cerebral arteries. 2. Redemonstrated complete occlusion of the right common and cervical internal carotid arteries beginning within 1 cm of its origin. 3. The left common and internal carotid arteries are widely patent. No evidence of stenosis. Postoperative change compatible with endarterectomy. This exam was performed according to our departmental dose-optimization program, which includes automated exposure control, adjustment of the mA and/or kV according to patient size and/or use of iterative reconstruction technique. Assessment & Plan - Diagnosis (1) Hypertensive emergency Is this a current diagnosis for this admission?: Yes Plan: Presenting with hypertensive emergency with systolics in the 200s/130s. Patient also with headache, and confusion. She still requiring as needed hydralazine. Continue on metoprolol and lisinopril. Systolics in the 160s appropriate for now. Patient will require more aggressive blood pressure control as an outpatient. Patient is no longer nauseated and vomited she no longer has a headache however she is still somewhat confused. (2) Hypertensive encephalopathy Is this a current diagnosis for this admission?: Yes Plan: Patient is no longer hysterical however she is confused. This confusion may be secondary to hypertensive encephalopathy. CT scan of the head is negative. Patient does not have any deficit concerning for an acute stroke. (3) Carotid stenosis Qualifiers: Laterality: bilateral Qualified Code(s): I65.23 - Occlusion and stenosis of bilateral carotid arteries Is this a current diagnosis for this admission?: Yes Plan: Is status post left cardiectomy which was completely divided. Patient vascular surgeon was contacted and he recommended that we keep patient for adequate blood pressure control. CTA was completed which showed occlusion of the right ICA the patent left carotid and internal carotid artery. Continued on statin and aspirin. (4) Headache Qualifiers: Headache type: unspecified Headache chronicity pattern: acute headache Intractability: not intractable Qualified Code(s): R51 - Headache Is this a current diagnosis for this admission?: Yes Plan: Most likely due to her hypertension. CT head was completed and was negative. Control blood pressures. Continue as needed pain medication. (5) Nausea & vomiting Qualifiers: Vomiting type: unspecified Vomiting Intractability: non-intractable Qualified Code(s): R11.2 - Nausea with vomiting, unspecified Is this a current diagnosis for this admission?: Yes Plan: Due to her hypertension. Resolved. Tolerating diet. (6) Leukocytosis Is this a current diagnosis for this admission?: Yes Plan: Patient still with leukocytosis more than likely this is not due to dehydration and this is most likely secondary to a possible aspiration pneumonitis. Will order chest x-ray and start patient on p.o. Levaquin. - Time Time Spent with patient: Less than 15 minutes Anticipated discharge: Home Within: within 48 hours - Inpatient Certification Medical Necessity: Significant Comorbidiites Make Outpatient Treatment Too Risky , Need Close Monitoring Due to Risk of Patient Decompensation
--- NOTE | 2017-03-28 17:50 | RADIOLOGY REPORT (SQ) ---
EXAM DESCRIPTION: CHEST SINGLE VIEW COMPLETED DATE/TIME: 03/28/2017 4:58 pm REASON FOR STUDY: cough COMPARISON: None. EXAM PARAMETERS: NUMBER OF VIEWS: One view. TECHNIQUE: Single frontal radiographic view of the chest acquired. RADIATION DOSE: NA LIMITATIONS: None. FINDINGS: LUNGS AND PLEURA: No opacities, masses or pneumothorax. No pleural effusion. MEDIASTINUM AND HILAR STRUCTURES: No masses. Contour normal. HEART AND VASCULAR STRUCTURES: Heart normal in size. Normal vasculature. BONES: No acute findings. HARDWARE: None in the chest. OTHER: No other significant finding. IMPRESSION: NO ACUTE RADIOGRAPHIC FINDING IN THE CHEST. TECHNICAL DOCUMENTATION: JOB ID: [id number] [employer]- All Rights Reserved
[2017-03-28] MEDS: OXYCODONE HCL IR 5 MG TABLET PO PRN (22:39)
[2017-03-28] MEDS: ONDANSETRON HCL INJ/PF 4 MG/2 ML SDV IV PRN (22:40)
[2017-03-29 04:13] LABS: ABSOLUTE BASOPHILS # (AUTO) 0.1 10^3/uL (0.0-0.2); ABSOLUTE EOSINOPHILS # (AUTO) 0.1 10^3/uL (0.0-0.6); ABSOLUTE LYMPHOCYTES (AUTO) 3.1 10^3/uL (0.5-4.7); ABSOLUTE MONOCYTES (AUTO) 1.3 10^3/uL (0.1-1.4); BASOPHILS % (AUTO) 0.4 % (0-2); EOSINOPHILS % (AUTO) 0.5 % (0-6); HEMATOCRIT 39.8 % (36.0-47.0); HEMOGLOBIN 13.8 g/dL (12.0-15.5); LYMPHOCYTES % (AUTO) 18.6 % (13-45); MEAN CORPUSCULAR HEMOGLOBIN 30.1 pg (27.0-33.4); MEAN CORPUSCULAR HGB CONC 34.6 g/dL (32.0-36.0); MEAN CORPUSCULAR VOLUME 87 fl (80-97); MONOCYTES % (AUTO) 7.6 % (3-13); PLATELET COUNT 309 10^3/uL (150-450); RED BLOOD COUNT 4.58 10^6/uL (3.72-5.28); RED CELL DISTRIBUTION WIDTH 13.3 % (11.5-14.0); SEGMENTED NEUTROPHILS % (AUTO) 72.9 % (42-78); TOTAL CELLS COUNTED % (AUTO) 100 %; WHITE BLOOD COUNT 16.5 10^3/uL (4.0-10.5)
[2017-03-29] MEDS ORDERED: POTASSIUM CHLORIDE 10 MEQ TABLET.SA PO ONE (09:30)
[2017-03-29 09:42] LABS: ANION GAP 10 (5-19); BLOOD UREA NITROGEN 15 mg/dL (7-20); CARBON DIOXIDE 28 mmol/L (22-30); CHLORIDE 103 mmol/L (98-107); GLUCOSE 102 mg/dL (75-110); POTASSIUM 3.8 mmol/L (3.6-5.0); SODIUM 141.4 mmol/L (137-145)
[2017-03-29] MEDS ORDERED: LISINOPRIL 5 MG TABLET PO SCH (10:00)
[2017-03-29] MEDS: METOPROLOL SUCCINATE 25 MG TAB.SR.24H PO SCH (10:27)
[2017-03-29] MEDS: ATORVASTATIN CALCIUM 40 MG TABLET PO SCH (10:28)
[2017-03-29] MEDS: LEVOFLOXACIN 500 MG TABLET PO SCH (10:28)
[2017-03-29] MEDS: ASPIRIN 81 MG TABLET, ENT COATED PO SCH (10:30)
--- NOTE | 2017-03-29 13:52 | RADIOLOGY REPORT (SQ) ---
EXAM DESCRIPTION: MRI HEAD COMBO COMPLETED DATE/TIME: 03/29/2017 1:33 pm REASON FOR STUDY: right sided weakness and confusion COMPARISON: Correlation made to CTA from 03/27/2017 and MRI from 11/25/2016 TECHNIQUE: Multiplanar imaging includes non-contrasted T1, T2, FLAIR, and diffusion with ADC map seq uences. Images stored on PACS. LIMITATIONS: None. FINDINGS: ANATOMY: No anomalies. Chronic occlusion right internal carotid artery. Otherwise normal Normal vascular flow voids with supply of the right middle cerebral artery via the anterior communic ating artery. Pituitary fossa normal. CSF SPACES: Atrophy induced prominence of ventricles and CSF spaces. CEREBRUM: High signal intensity lesions scattered throughout the white matter on FLAIR imaging with d istribution suggesting micro-vascular ischemic changes. No evidence of hemorrhage, mass, or extraaxi al fluid collection. POSTERIOR FOSSA: No signal alteration. No hemorrhage. No edema, masses or mass effect. Internal sylvia tory canals, cerebello-pontine angles, mastoids normal. DIFFUSION IMAGING: Areas of restricted diffusion involving the left greater than right occipital osmel etal lobes compatible with acute infarction involving a watershed distribution between the MCA and PC A. ORBITS: No masses. Globes normal. PARANASAL SINUSES: No fluid levels. Mucosa normal. OTHER: No other significant finding. IMPRESSION: ACUTE INFARCTION INVOLVING THE LEFT GREATER THAN RIGHT OCCIPITAL AND PARIETAL LOBES IN A WATERSHED DISTRIBUTION BETWEEN THE DISASTER RECOVERY MANAGER AND MCA TERRITORIES. CORRELATE WITH HYPOTENSION. ADDITIONAL SENESCENT CHANGE ABOVE INCLUDING CHRONIC OCCLUSION OF THE RIGHT INTERNAL CAROTID ARTERY . EVIDENCE OF ACUTE STROKE: YES. WATERSHED DISTRIBUTION ABOVE. TECHNICAL DOCUMENTATION: JOB ID: [id number] [employer]- All Rights Reserved
[2017-03-29] MEDS: NICOTINE 14 MG/24 HR PATCH.TD24 TD SCH (14:07)
[2017-03-29] MEDS ORDERED: CLOPIDOGREL BISULFATE 75 MG TABLET PO ONE (15:30)
[2017-03-29 17:21] LABS: ABSOLUTE LYMPHOCYTES (AUTO) 2.8 10^3/uL (0.5-4.7); ABSOLUTE MONOCYTES (AUTO) 1.1 10^3/uL (0.1-1.4); ABSOLUTE NEUT (AUTO) 11.8 10^3/uL (1.7-8.2); BASOPHILS % (AUTO) 0.3 % (0-2); EOSINOPHILS % (AUTO) 0.3 % (0-6); HEMATOCRIT 41.8 % (36.0-47.0); HEMOGLOBIN 14.3 g/dL (12.0-15.5); LYMPHOCYTES % (AUTO) 17.9 % (13-45); MEAN CORPUSCULAR HEMOGLOBIN 29.8 pg (27.0-33.4); MEAN CORPUSCULAR HGB CONC 34.3 g/dL (32.0-36.0); MEAN CORPUSCULAR VOLUME 87 fl (80-97); MONOCYTES % (AUTO) 6.7 % (3-13); PLATELET COUNT 327 10^3/uL (150-450); RED CELL DISTRIBUTION WIDTH 13.3 % (11.5-14.0); SEGMENTED NEUTROPHILS % (AUTO) 74.8 % (42-78); TOTAL CELLS COUNTED % (AUTO) 100 %; WHITE BLOOD COUNT 15.7 10^3/uL (4.0-10.5)
--- NOTE | 2017-03-30 03:21 | PDOC PROGRESS REPORT ---
Subjective Progress Note for:: 03/29/17 Subjective:: Patient is a 61-year-old female with with a history of bilateral carotid stenosis status post left endarterectomy presented with hypertensive emergency and hypertensive encephalopathy. Patient recently had her endarterectomy done and does not have any known history of hypertension however was extremely hypertensive on presentation and was symptomatic with vomiting and headache. Patient now with persistent leukocytosis ptosis most likely secondary to aspiration pneumonitis. Patient still confused and is noted to have right sided weakness. Patient having difficulty processing information. Reason For Visit: ACUTE STROKE,HYPERTENSIVE EMERGENCY,LEUKOCYTOSIS Physical Exam Vital Signs: Temp Pulse Resp BP Pulse Ox 98.2 F 72 16 162/77 H 99 03/29/17 20:05 03/29/17 20:05 03/29/17 20:05 03/29/17 20:05 03/29/17 20:05 Intake & Output 03/28/17 03/29/17 03/30/17 06:59 06:59 06:59 Intake Total 10 Balance 10 General appearance: PRESENT: no acute distress, well-developed, well-nourished Head exam: PRESENT: atraumatic, normocephalic Eye exam: PRESENT: conjunctiva pink, EOMI, PERRLA. ABSENT: scleral icterus Ear exam: PRESENT: normal external ear exam Mouth exam: PRESENT: moist, tongue midline Neck exam: ABSENT: carotid bruit, JVD, lymphadenopathy, thyromegaly Respiratory exam: PRESENT: clear to auscultation aracelis. ABSENT: rales, rhonchi, wheezes Cardiovascular exam: PRESENT: RRR. ABSENT: diastolic murmur, rubs, systolic murmur Pulses: PRESENT: normal dorsalis pedis pul Vascular exam: PRESENT: normal capillary refill GI/Abdominal exam: PRESENT: normal bowel sounds, soft. ABSENT: distended, guarding, mass, organolmegaly, rebound, tenderness Rectal exam: PRESENT: deferred Extremities exam: PRESENT: full ROM. ABSENT: calf tenderness, clubbing, pedal edema Neurological exam: PRESENT: alert, awake, oriented to person, CN II-XII grossly intact, aphasic - patient repeating herself stating Im not sure, other - can more all extremities however with right hemineglect weakness of right side. ABSENT: motor sensory deficit Psychiatric exam: PRESENT: appropriate affect, normal mood. ABSENT: homicidal ideation, suicidal ideation Skin exam: PRESENT: dry, intact, warm. ABSENT: cyanosis, rash Results Laboratory Results: 03/29/17 17:13 03/29/17 17:13 WBC 15.7 H RBC 4.80 Hgb 14.3 Hct 41.8 MCV 87 MCH 29.8 MCHC 34.3 RDW 13.3 Plt Count 327 Seg Neutrophils % 74.8 Lymphocytes % 17.9 Monocytes % 6.7 Eosinophils % 0.3 Basophils % 0.3 Absolute Neutrophils 11.8 H Absolute Lymphocytes 2.8 Absolute Monocytes 1.1 Absolute Eosinophils 0.0 Absolute Basophils 0.0 Impressions: Head CT 03/27/17 00:00 IMPRESSION: 1. No acute intracranial abnormality identified. This exam was performed according to our departmental dose-optimization program, which includes automated exposure control, adjustment of the mA and/or kV according to patient size and/or use of iterative reconstruction technique. Head CTA 03/27/17 06:10 IMPRESSION: 1. Redemonstrated occlusion of the intracranial right ICA to the level of the paraclinoid right ICA where there is reconstitution of flow through multiple channels of the [place]. Symmetric flow within the bilateral anterior middle cerebral arteries. 2. Redemonstrated complete occlusion of the right common and cervical internal carotid arteries beginning within 1 cm of its origin. 3. The left common and internal carotid arteries are widely patent. No evidence of stenosis. Postoperative change compatible with endarterectomy. This exam was performed according to our departmental dose-optimization program, which includes automated exposure control, adjustment of the mA and/or kV according to patient size and/or use of iterative reconstruction technique. Neck CTA 03/27/17 06:10 IMPRESSION: 1. Redemonstrated occlusion of the intracranial right ICA to the level of the paraclinoid right ICA where there is reconstitution of flow through multiple channels of the [place]. Symmetric flow within the bilateral anterior middle cerebral arteries. 2. Redemonstrated complete occlusion of the right common and cervical internal carotid arteries beginning within 1 cm of its origin. 3. The left common and internal carotid arteries are widely patent. No evidence of stenosis. Postoperative change compatible with endarterectomy. This exam was performed according to our departmental dose-optimization program, which includes automated exposure control, adjustment of the mA and/or kV according to patient size and/or use of iterative reconstruction technique. Chest X-Ray 03/28/17 00:00 IMPRESSION: NO ACUTE RADIOGRAPHIC FINDING IN THE CHEST. Head MRI 03/29/17 00:00 IMPRESSION: ACUTE INFARCTION INVOLVING THE LEFT GREATER THAN RIGHT OCCIPITAL AND PARIETAL LOBES IN A WATERSHED DISTRIBUTION BETWEEN THE WAGE ADJUSTER AND MCA TERRITORIES. CORRELATE WITH HYPOTENSION. ADDITIONAL SENESCENT CHANGE ABOVE INCLUDING CHRONIC OCCLUSION OF THE RIGHT INTERNAL CAROTID ARTERY. EVIDENCE OF ACUTE STROKE: YES. WATERSHED DISTRIBUTION ABOVE. Assessment & Plan - Diagnosis (1) CVA (cerebral vascular accident) Qualifiers: Laterality of affected vessel: bilateral Is this a current diagnosis for this admission?: Yes Plan: Allow for permissive hypertension especially in patient with carotid stenosis status post recent left endarterectomy. Right ICA still occluded. On asprin, statin will start plavix. PT OT consulted. SCD for DVT prophylaxis. Will check lipid panel and A1c. Will order cardiac echo. (2) Hypertensive emergency Is this a current diagnosis for this admission?: Yes Plan: Presenting with hypertensive emergency with systolics in the 200s/130s. Patient also with headache, and confusion. She still requiring as needed hydralazine. Continue on metoprolol and lisinopril. Systolics in the 160s appropriate for now. Patient will require more aggressive blood pressure control as an outpatient. Patient is no longer nauseated and vomited she no longer has a headache however she is still somewhat confused. (3) Hypertensive encephalopathy Is this a current diagnosis for this admission?: Yes Plan: Patient is no longer hysterical however she is confused. This confusion may be secondary to hypertensive encephalopathy. CT scan of the head is negative. Patient now with right sided weakness. MRI consistent with stroke. (4) Carotid stenosis Qualifiers: Laterality: bilateral Qualified Code(s): I65.23 - Occlusion and stenosis of bilateral carotid arteries Is this a current diagnosis for this admission?: Yes Plan: status post left endarterectomy which was completely occluded now patent. Patient vascular surgeon at [facility] was contacted and he recommended that we keep patient for adequate blood pressure control. CTA was completed which showed occlusion of the right ICA with patent left carotid and internal carotid artery. Continued on statin, plavix and aspirin. (5) Headache Qualifiers: Headache type: unspecified Headache chronicity pattern: acute headache Intractability: not intractable Qualified Code(s): R51 - Headache Is this a current diagnosis for this admission?: Yes Plan: Most likely due to her hypertension. CT head was completed and was negative. Control blood pressures. Continue as needed pain medication. (6) Nausea & vomiting Qualifiers: Vomiting type: unspecified Vomiting Intractability: non-intractable Qualified Code(s): R11.2 - Nausea with vomiting, unspecified Is this a current diagnosis for this admission?: Yes Plan: Due to her hypertension. Resolved. Tolerating diet. (7) Leukocytosis Is this a current diagnosis for this admission?: Yes Plan: Patient still with leukocytosis more than likely this is not due to dehydration and this is most likely secondary to a possible aspiration pneumonitis. Improving on levaquin. - Time Time Spent with patient: 15-24 minutes Anticipated discharge: Acute Rehab - Inpatient Certification Medical Necessity: Significant Comorbidiites Make Outpatient Treatment Too Risky , Need Close Monitoring Due to Risk of Patient Decompensation, Need For Continuous Telemetry Monitoring
[2017-03-30 05:29] LABS: CHOLESTEROL 151.39 mg/dL (0-200); TRIGLYCERIDES 94 mg/dL (<150)
[2017-03-30] MEDS: ONDANSETRON HCL INJ/PF 4 MG/2 ML SDV IV PRN ×2 (05:37→09:12)
[2017-03-30 05:39] LABS: DIRECT LDL 93 mg/dL (<100)
[2017-03-30] MEDS: ASPIRIN 81 MG TABLET, ENT COATED PO SCH (09:12)
[2017-03-30] MEDS: METOPROLOL SUCCINATE 25 MG TAB.SR.24H PO SCH (09:12)
[2017-03-30] MEDS: CLOPIDOGREL BISULFATE 75 MG TABLET PO SCH (09:12)
[2017-03-30] MEDS: LEVOFLOXACIN 500 MG TABLET PO SCH (09:12)
[2017-03-30] MEDS: ATORVASTATIN CALCIUM 40 MG TABLET PO SCH (09:12)
[2017-03-30] MEDS: MECLIZINE HCL 25 MG TABLET PO PRN (10:54)
[2017-03-30] MEDS: OXYCODONE HCL IR 5 MG TABLET PO PRN (10:54)
[2017-03-30] MEDS: NICOTINE 14 MG/24 HR PATCH.TD24 TD SCH (11:59)
--- NOTE | 2017-03-30 17:52 | PDOC PROGRESS REPORT ---
Subjective Progress Note for:: 03/30/17 Reason For Visit: ACUTE STROKE,HYPERTENSIVE EMERGENCY,LEUKOCYTOSIS Patient had complained of some lightheadedness and dizziness earlier and this has improved with meclizine. She was found to have urinary retention with 800 cc seen by bladder scan. Pressley catheter will be placed. Physical Exam Vital Signs: Temp Pulse Resp BP Pulse Ox 98.0 F 78 19 180/89 H 98 03/30/17 15:01 03/30/17 16:00 03/30/17 16:00 03/30/17 16:00 03/30/17 16:00 Intake & Output 03/29/17 03/30/17 03/31/17 06:59 06:59 06:59 Intake Total 269 375 Output Total 150 75 Balance 119 300 Weight 58.5 kg Additional comments: Middle-aged female lying in bed not in acute distress. She has right-sided hemineglect No facial droop Lungs: Clear to auscultation bilaterally normal respiratory effort Cardiac: S1-S2 regular no murmurs heard no peripheral edema Abdomen: Soft, no focal tenderness Results Laboratory Results: 03/29/17 17:13 03/30/17 04:43 Triglycerides 94 Cholesterol 151.39 LDL Cholesterol Direct 93 VLDL Cholesterol 19.0 HDL Cholesterol 45 Impressions: Head CT 03/27/17 00:00 IMPRESSION: 1. No acute intracranial abnormality identified. This exam was performed according to our departmental dose-optimization program, which includes automated exposure control, adjustment of the mA and/or kV according to patient size and/or use of iterative reconstruction technique. Head CTA 03/27/17 06:10 IMPRESSION: 1. Redemonstrated occlusion of the intracranial right ICA to the level of the paraclinoid right ICA where there is reconstitution of flow through multiple channels of the [place]. Symmetric flow within the bilateral anterior middle cerebral arteries. 2. Redemonstrated complete occlusion of the right common and cervical internal carotid arteries beginning within 1 cm of its origin. 3. The left common and internal carotid arteries are widely patent. No evidence of stenosis. Postoperative change compatible with endarterectomy. This exam was performed according to our departmental dose-optimization program, which includes automated exposure control, adjustment of the mA and/or kV according to patient size and/or use of iterative reconstruction technique. Neck CTA 03/27/17 06:10 IMPRESSION: 1. Redemonstrated occlusion of the intracranial right ICA to the level of the paraclinoid right ICA where there is reconstitution of flow through multiple channels of the [place]. Symmetric flow within the bilateral anterior middle cerebral arteries. 2. Redemonstrated complete occlusion of the right common and cervical internal carotid arteries beginning within 1 cm of its origin. 3. The left common and internal carotid arteries are widely patent. No evidence of stenosis. Postoperative change compatible with endarterectomy. This exam was performed according to our departmental dose-optimization program, which includes automated exposure control, adjustment of the mA and/or kV according to patient size and/or use of iterative reconstruction technique. Chest X-Ray 03/28/17 00:00 IMPRESSION: NO ACUTE RADIOGRAPHIC FINDING IN THE CHEST. Head MRI 03/29/17 00:00 IMPRESSION: ACUTE INFARCTION INVOLVING THE LEFT GREATER THAN RIGHT OCCIPITAL AND PARIETAL LOBES IN A WATERSHED DISTRIBUTION BETWEEN THE HOLISTIC PULSER AND MCA TERRITORIES. CORRELATE WITH HYPOTENSION. ADDITIONAL SENESCENT CHANGE ABOVE INCLUDING CHRONIC OCCLUSION OF THE RIGHT INTERNAL CAROTID ARTERY. EVIDENCE OF ACUTE STROKE: YES. WATERSHED DISTRIBUTION ABOVE. Assessment & Plan - Diagnosis (1) CVA (cerebral vascular accident) Qualifiers: Laterality of affected vessel: bilateral Is this a current diagnosis for this admission?: Yes (2) Carotid stenosis Qualifiers: Laterality: bilateral Qualified Code(s): I65.23 - Occlusion and stenosis of bilateral carotid arteries Is this a current diagnosis for this admission?: Yes (3) Hypertensive emergency Is this a current diagnosis for this admission?: Yes (4) Hypertensive encephalopathy Is this a current diagnosis for this admission?: Yes (5) Nausea & vomiting Qualifiers: Vomiting type: unspecified Vomiting Intractability: non-intractable Qualified Code(s): R11.2 - Nausea with vomiting, unspecified Is this a current diagnosis for this admission?: Yes - Time Time Spent with patient: 25-34 minutes - Plan Summary Plan Summary: Physical therapy evaluation, fall precautions. Continue current medical management of stroke. Press[place] catheter for urinary retention.
--- NOTE | 2017-03-30 19:35 | XCELERA REPORT ---
[address] [address] Transthoracic Echocardiogram Report Name: MANOJ FELIX Age: 61 yrs Gender: Female : 1955 Patient Status: Inpatient Patient Location: [address] [place] [address] Study Date: 03/30/2017 01:36 PM Height: 64 in Weight: 128 lb BSA: 1.6 m2 Procedure: A complete two-dimensional transthoracic echocardiogram was performed (2D, M-mode, spectral and color flow Doppler). The study was technically difficult with many images being suboptimal in quality. Reason For Study: stroke Ordering Physician: LUCILA PIERRE Performed By: Chantel Sena Interpretation Summary The study was technically difficult with many images being suboptimal in quality. The left ventricular ejection fraction is normal. There is normal left ventricular wall thickness. The left ventricle is grossly normal size. Doppler measurements suggest pseudonormalized left ventricular relaxation, which is associated with grade II/IV or mild to moderate diastolic dysfunction Wall motion cannot be accurately commented on, but no definite regional wall motion abnormalities noted. The right ventricular systolic function is normal. The left atrial size is normal. The right atrium is normal in size There is a trace amount of mitral regurgitation There is no mitral valve stenosis. There is a mild amount of aortic regurgitation There is no aortic valve stenosis There is a trace or physiologic amount of tricuspid regurgitation Tricuspid regurgitation jet envelope not well defined to measure RV systolic pressure accurately. The aortic root is not well visualized but is probably normal size. The inferior vena cava appeared normal and decreased > 50% with respiration (RAP 5-10 mmHg) There is no pericardial effusion. MMode/2D Measurements & Calculations RVDd: 2.2 cm LVIDd: 3.4 cm FS: 30.6 % Ao root diam: 2.7 cm IVSd: 0.84 cm LVIDs: 2.3 cm EDV(Teich): 46.3 ml LVPWd: 0.87 cmESV(Teich): 18.8 ml Ao root area: 5.7 cm2 EF(Teich): 59.3 % LA dimension: 3.0 cm LVOT diam: 1.7 cm LVOT area: 2.4 cm2 Doppler Measurements & Calculations MV E max courtney: MV P1/2t max courtney: Ao V2 max: AI max courtney: 59.7 cm/sec 60.7 cm/sec 134.4 cm/sec 329.8 cm/sec MV A max courtney: MV P1/2t: 81.5 msec Ao max PG: AI max P.0 cm/sec MVA(P1/2t): 2.7 cm2 7.2 mmHg 43.5 mmHg MV E/A: 0.81 MV dec slope: YELITZA(V,D): 2.1 cm2 AI dec slope: 218.3 cm/sec2 158.1 cm/sec2 AI P1/2t: 611.1 msec LV V1 max PG: PA V2 max: TR max courtney: 5.8 mmHg 89.8 cm/sec 192.9 cm/sec LV V1 max: PA max P.2 mmHg TR max P.9 cm/sec 14.9 mmHg Left Ventricle The left ventricle is grossly normal size. There is normal left ventricular wall thickness. The left ventricular ejection fraction is normal. Doppler measurements suggest pseudonormalized left ventricular relaxation, which is associated with grade II/IV or mild to moderate diastolic dysfunction. Wall motion cannot be accurately commented on, but no definite regional wall motion abnormalities noted. Right Ventricle The right ventricle is grossly normal size. There is normal right ventricular wall thickness. The right ventricular systolic function is normal. Atria The right atrium is normal in size. The left atrial size is normal. Interarterial septum not well visualized and not well dopplered. Cannot comment on ASD/PFO presence. Mitral Valve The mitral valve leaflets are sclerotic, but show no functional abnormalities. There is no mitral valve stenosis. There is a trace amount of mitral regurgitation. Aortic Valve The aortic valve is sclerotic, but shows no functional abnormality. There is no aortic valve stenosis. There is a mild amount of aortic regurgitation. Tricuspid Valve The tricuspid valve is not well visualized, but is grossly normal. There is no tricuspid stenosis. There is a trace or physiologic amount of tricuspid regurgitation. Tricuspid regurgitation jet envelope not well defined to measure RV systolic pressure accurately. Pulmonic Valve The pulmonic valve is not well visualized. Great Vessels The aortic root is not well visualized but is probably normal size. The inferior vena cava appeared normal and decreased > 50% with respiration (RAP 5-10 mmHg). Effusions There is no pericardial effusion. : LUCILA PIERRE > Rose Gallardo
[2017-03-31] MEDS: METOPROLOL SUCCINATE 25 MG TAB.SR.24H PO SCH (10:27)
[2017-03-31] MEDS: CLOPIDOGREL BISULFATE 75 MG TABLET PO SCH (10:27)
[2017-03-31] MEDS: LEVOFLOXACIN 500 MG TABLET PO SCH (10:27)
[2017-03-31] MEDS: ATORVASTATIN CALCIUM 40 MG TABLET PO SCH (10:27)
[2017-03-31] MEDS: ASPIRIN 81 MG TABLET, ENT COATED PO SCH (10:27)
--- NOTE | 2017-03-31 10:32 | EKG REPORT ---
SEVERITY:- BORDERLINE ECG - SINUS RHYTHM BORDERLINE ST ELEVATION, ANTEROLATERAL LEADS : Confirmed by: Rose Gallardo 31-Mar-2017 10:31:29
[2017-03-31] MEDS: NICOTINE 14 MG/24 HR PATCH.TD24 TD SCH (14:31)
[2017-03-31 15:01] LABS: ANION GAP 15 (5-19); BLOOD UREA NITROGEN 17 mg/dL (7-20); CALCIUM 10.7 mg/dL (8.4-10.2); CARBON DIOXIDE 26 mmol/L (22-30); CHLORIDE 102 mmol/L (98-107); GLUCOSE 103 mg/dL (75-110); POTASSIUM 4.3 mmol/L (3.6-5.0); SODIUM 142.6 mmol/L (137-145)
[2017-03-31] MEDS: ONDANSETRON HCL INJ/PF 4 MG/2 ML SDV IV PRN ×2 (15:39→21:18)
[2017-03-31] MEDS: MECLIZINE HCL 25 MG TABLET PO PRN (15:39)
--- NOTE | 2017-03-31 17:26 | PDOC PROGRESS REPORT ---
Subjective Progress Note for:: 03/31/17 Subjective:: 61-year-old female who presented initially with a hypertensive emergency and MRI then showed an acute stroke bilateral occipital and parietal lobes more on the left. She was having some right sided hemineglect yesterday which has improved. Reason For Visit: ACUTE STROKE,HYPERTENSIVE EMERGENCY,LEUKOCYTOSIS Physical Exam Vital Signs: Temp Pulse Resp BP Pulse Ox 98.2 F 88 12 124/75 97 03/31/17 15:35 03/31/17 15:35 03/31/17 15:35 03/31/17 15:35 03/31/17 15:35 Intake & Output 03/30/17 03/31/17 04/01/17 06:59 06:59 06:59 Intake Total 269 605 50 Output Total 150 1425 200 Balance 119 -820 -150 Weight 58.5 kg 59.4 kg Additional comments: Middle-aged female lying in bed not in acute distress. Improvement in right-sided hemineglect Strength 5 out of 5 upper extremity, 4+ out of 5 right upper extremity 5 out of 5 bilateral upper and lower extremities She has L visual field loss No facial droop Lungs: Clear to auscultation bilaterally normal respiratory effort Cardiac: S1-S2 regular no murmurs heard no peripheral edema Abdomen: Soft, no focal tenderness Results Laboratory Results: 03/29/17 17:13 03/31/17 14:13 03/31/17 14:13 Sodium 142.6 Potassium 4.3 Chloride 102 Carbon Dioxide 26 Anion Gap 15 BUN 17 Creatinine 0.57 Est GFR ( Amer) > 60 Est GFR (Non-Af Amer) > 60 Glucose 103 Calcium 10.7 H Impressions: Head CT 03/27/17 00:00 IMPRESSION: 1. No acute intracranial abnormality identified. This exam was performed according to our departmental dose-optimization program, which includes automated exposure control, adjustment of the mA and/or kV according to patient size and/or use of iterative reconstruction technique. Head CTA 03/27/17 06:10 IMPRESSION: 1. 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 Symmetric flow within the bilateral anterior middle cerebral arteries. 2. Redemonstrated complete occlusion of the right common and cervical internal carotid arteries beginning within 1 cm of its origin. 3. The left common and internal carotid arteries are widely patent. No evidence of stenosis. Postoperative change compatible with endarterectomy. This exam was performed according to our departmental dose-optimization program, which includes automated exposure control, adjustment of the mA and/or kV according to patient size and/or use of iterative reconstruction technique. Neck CTA 03/27/17 06:10 IMPRESSION: 1. 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 Symmetric flow within the bilateral anterior middle cerebral arteries. 2. Redemonstrated complete occlusion of the right common and cervical internal carotid arteries beginning within 1 cm of its origin. 3. The left common and internal carotid arteries are widely patent. No evidence of stenosis. Postoperative change compatible with endarterectomy. This exam was performed according to our departmental dose-optimization program, which includes automated exposure control, adjustment of the mA and/or kV according to patient size and/or use of iterative reconstruction technique. Chest X-Ray 03/28/17 00:00 IMPRESSION: NO ACUTE RADIOGRAPHIC FINDING IN THE CHEST. Head MRI 03/29/17 00:00 IMPRESSION: ACUTE INFARCTION INVOLVING THE LEFT GREATER THAN RIGHT OCCIPITAL AND PARIETAL LOBES IN A WATERSHED DISTRIBUTION BETWEEN THE TREASURY AGENT AND MCA TERRITORIES. CORRELATE WITH HYPOTENSION. ADDITIONAL SENESCENT CHANGE ABOVE INCLUDING CHRONIC OCCLUSION OF THE RIGHT INTERNAL CAROTID ARTERY. EVIDENCE OF ACUTE STROKE: YES. WATERSHED DISTRIBUTION ABOVE. Assessment & Plan - Diagnosis (1) CVA (cerebral vascular accident) Qualifiers: Laterality of affected vessel: bilateral Is this a current diagnosis for this admission?: Yes (2) Carotid stenosis Qualifiers: Laterality: bilateral Qualified Code(s): I65.23 - Occlusion and stenosis of bilateral carotid arteries Is this a current diagnosis for this admission?: Yes (3) Hypertensive emergency Is this a current diagnosis for this admission?: Yes (4) Hypertensive encephalopathy Is this a current diagnosis for this admission?: Yes (5) Nausea & vomiting Qualifiers: Vomiting type: unspecified Vomiting Intractability: non-intractable Qualified Code(s): R11.2 - Nausea with vomiting, unspecified Is this a current diagnosis for this admission?: Yes - Plan Summary Plan Summary: Continue physical therapy and fall precautions. Continue current medical management of stroke.
[2017-03-31] MEDS: OXYCODONE HCL IR 5 MG TABLET PO PRN (22:36)
[2017-04-01] MEDS: MECLIZINE HCL 25 MG TABLET PO PRN ×2 (06:15→18:36)
[2017-04-01] MEDS: CLOPIDOGREL BISULFATE 75 MG TABLET PO SCH (09:43)
[2017-04-01] MEDS: METOPROLOL SUCCINATE 25 MG TAB.SR.24H PO SCH (09:43)
[2017-04-01] MEDS: LEVOFLOXACIN 500 MG TABLET PO SCH (09:44)
[2017-04-01] MEDS: ATORVASTATIN CALCIUM 40 MG TABLET PO SCH (09:44)
[2017-04-01] MEDS: ASPIRIN 81 MG TABLET, ENT COATED PO SCH (09:45)
[2017-04-01] MEDS: OXYCODONE HCL IR 5 MG TABLET PO PRN ×4 (09:45→22:10)
[2017-04-01] MEDS ORDERED: ASPIRIN 325 MG TABLET, ENT COATED PO SCH (10:15)
[2017-04-01] MEDS: NICOTINE 14 MG/24 HR PATCH.TD24 TD SCH (11:17)
[2017-04-01] MEDS ORDERED: MAGNESIUM OXIDE 400 MG TABLET PO ONE (12:00)
--- NOTE | 2017-04-01 17:46 | PDOC PROGRESS REPORT ---
Subjective Progress Note for:: 04/01/17 Subjective:: 61-year-old female who had L CEA on Mar 08 and presented to this hospital on with with a hypertensive emergency and MRI then showed an acute stroke bilateral occipital and parietal lobes more on the left. She has right sided hemineglect yesterday which is slowly improving. Reason For Visit: ACUTE STROKE,HYPERTENSIVE EMERGENCY,LEUKOCYTOSIS Physical Exam Vital Signs: Temp Pulse Resp BP Pulse Ox 97.5 F 81 15 112/60 99 04/01/17 15:17 04/01/17 16:00 04/01/17 16:00 04/01/17 16:00 04/01/17 16:00 Intake & Output 03/31/17 04/01/17 04/02/17 06:59 06:59 06:59 Intake Total 605 564 177 Output Total 1425 900 200 Balance -820 -336 -23 Weight 59.4 kg 59.6 kg Additional comments: Middle-aged female lying in bed not in acute distress. Lungs: Clear to auscultation bilaterally normal respiratory effort Cardiac: S1-S2 regular no murmurs heard no peripheral edema Abdomen: Soft, no focal tenderness Improvement in right-sided hemineglect Strength 5 out of 5 upper extremity, 4+ out of 5 right upper extremity Results Laboratory Results: 03/29/17 17:13 03/31/17 14:13 Impressions: Head CT 03/27/17 00:00 IMPRESSION: 1. No acute intracranial abnormality identified. This exam was performed according to our departmental dose-optimization program, which includes automated exposure control, adjustment of the mA and/or kV according to patient size and/or use of iterative reconstruction technique. Head CTA 03/27/17 06:10 IMPRESSION: 1. 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 Symmetric flow within the bilateral anterior middle cerebral arteries. 2. Redemonstrated complete occlusion of the right common and cervical internal carotid arteries beginning within 1 cm of its origin. 3. The left common and internal carotid arteries are widely patent. No evidence of stenosis. Postoperative change compatible with endarterectomy. This exam was performed according to our departmental dose-optimization program, which includes automated exposure control, adjustment of the mA and/or kV according to patient size and/or use of iterative reconstruction technique. Neck CTA 03/27/17 06:10 IMPRESSION: 1. 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 Symmetric flow within the bilateral anterior middle cerebral arteries. 2. Redemonstrated complete occlusion of the right common and cervical internal carotid arteries beginning within 1 cm of its origin. 3. The left common and internal carotid arteries are widely patent. No evidence of stenosis. Postoperative change compatible with endarterectomy. This exam was performed according to our departmental dose-optimization program, which includes automated exposure control, adjustment of the mA and/or kV according to patient size and/or use of iterative reconstruction technique. Chest X-Ray 03/28/17 00:00 IMPRESSION: NO ACUTE RADIOGRAPHIC FINDING IN THE CHEST. Head MRI 03/29/17 00:00 IMPRESSION: ACUTE INFARCTION INVOLVING THE LEFT GREATER THAN RIGHT OCCIPITAL AND PARIETAL LOBES IN A WATERSHED DISTRIBUTION BETWEEN THE SEED CLE[employer]ER OPERATOR AND MCA TERRITORIES. CORRELATE WITH HYPOTENSION. ADDITIONAL SENESCENT CHANGE ABOVE INCLUDING CHRONIC OCCLUSION OF THE RIGHT INTERNAL CAROTID ARTERY. EVIDENCE OF ACUTE STROKE: YES. WATERSHED DISTRIBUTION ABOVE. Assessment & Plan - Diagnosis (1) CVA (cerebral vascular accident) Qualifiers: Laterality of affected vessel: bilateral Is this a current diagnosis for this admission?: Yes (2) Carotid stenosis Qualifiers: Laterality: bilateral Qualified Code(s): I65.23 - Occlusion and stenosis of bilateral carotid arteries Is this a current diagnosis for this admission?: Yes (3) Hypertensive emergency Is this a current diagnosis for this admission?: Yes (4) Hypertensive encephalopathy Is this a current diagnosis for this admission?: Yes (5) Nausea & vomiting Qualifiers: Vomiting type: unspecified Vomiting Intractability: non-intractable Qualified Code(s): R11.2 - Nausea with vomiting, unspecified Is this a current diagnosis for this admission?: Yes - Plan Summary Plan Summary: Continue nicotine patch, aspirin, Plavix, statin Toprol for hypertension hyperlipidemia and recent stroke. Continue fall precautions and physical therapy. She would benefit from subacute rehabilitation.
[2017-04-01] MEDS: MAGNESIUM OXIDE 400 MG TABLET PO SCH (18:35)
[2017-04-02] MEDS: OXYCODONE HCL IR 5 MG TABLET PO PRN ×3 (07:37→19:54)
[2017-04-02] MEDS ORDERED: LEVOFLOXACIN 500 MG TABLET PO SCH (08:00)
[2017-04-02] MEDS: MAGNESIUM OXIDE 400 MG TABLET PO SCH ×2 (09:35→19:54)
[2017-04-02] MEDS: ASPIRIN 81 MG TABLET, ENT COATED PO SCH (09:35)
[2017-04-02] MEDS: ATORVASTATIN CALCIUM 40 MG TABLET PO SCH (09:35)
[2017-04-02] MEDS: CLOPIDOGREL BISULFATE 75 MG TABLET PO SCH (09:35)
[2017-04-02] MEDS: METOPROLOL SUCCINATE 25 MG TAB.SR.24H PO SCH (09:36)
[2017-04-02] MEDS: NICOTINE 14 MG/24 HR PATCH.TD24 TD SCH (13:18)
--- NOTE | 2017-04-02 15:48 | PDOC PROGRESS REPORT ---
Subjective Progress Note for:: 04/02/17 Subjective:: 61-year-old female who had L CEA on Mar 08 and presented to this hospital on with with a hypertensive emergency and MRI then showed an acute stroke bilateral occipital and parietal lobes more on the left. Her right sided hemineglect which is improving. She is oriented to place and person but thinks it is 2013. Reason For Visit: ACUTE STROKE,HYPERTENSIVE EMERGENCY,LEUKOCYTOSIS Physical Exam Vital Signs: Temp Pulse Resp BP Pulse Ox 98.5 F 87 16 169/92 H 95 04/02/17 12:27 04/02/17 12:27 04/02/17 12:27 04/02/17 12:27 04/02/17 12:27 Intake & Output 04/01/17 04/02/17 04/03/17 06:59 06:59 06:59 Intake Total 564 789 177 Output Total 900 1350 400 Balance -336 -561 -223 Weight 59.6 kg 60 kg Additional comments: Lungs: Clear to auscultation bilaterally normal respiratory effort Cardiac: S1-S2 regular no murmurs heard no peripheral edema Abdomen: Soft, no focal tenderness Improvement in right-sided hemineglect Strength 5 out of 5 upper extremity, 4+ out of 5 right upper extremity Results Laboratory Results: 03/29/17 17:13 03/31/17 14:13 Impressions: Head CT 03/27/17 00:00 IMPRESSION: 1. No acute intracranial abnormality identified. This exam was performed according to our departmental dose-optimization program, which includes automated exposure control, adjustment of the mA and/or kV according to patient size and/or use of iterative reconstruction technique. Head CTA 03/27/17 06:10 IMPRESSION: 1. 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 Symmetric flow within the bilateral anterior middle cerebral arteries. 2. Redemonstrated complete occlusion of the right common and cervical internal carotid arteries beginning within 1 cm of its origin. 3. The left common and internal carotid arteries are widely patent. No evidence of stenosis. Postoperative change compatible with endarterectomy. This exam was performed according to our departmental dose-optimization program, which includes automated exposure control, adjustment of the mA and/or kV according to patient size and/or use of iterative reconstruction technique. Neck CTA 03/27/17 06:10 IMPRESSION: 1. 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 Symmetric flow within the bilateral anterior middle cerebral arteries. 2. Redemonstrated complete occlusion of the right common and cervical internal carotid arteries beginning within 1 cm of its origin. 3. The left common and internal carotid arteries are widely patent. No evidence of stenosis. Postoperative change compatible with endarterectomy. This exam was performed according to our departmental dose-optimization program, which includes automated exposure control, adjustment of the mA and/or kV according to patient size and/or use of iterative reconstruction technique. Chest X-Ray 03/28/17 00:00 IMPRESSION: NO ACUTE RADIOGRAPHIC FINDING IN THE CHEST. Head MRI 03/29/17 00:00 IMPRESSION: ACUTE INFARCTION INVOLVING THE LEFT GREATER THAN RIGHT OCCIPITAL AND PARIETAL LOBES IN A WATERSHED DISTRIBUTION BETWEEN THE [place] AND MCA TERRITORIES. CORRELATE WITH HYPOTENSION. ADDITIONAL SENESCENT CHANGE ABOVE INCLUDING CHRONIC OCCLUSION OF THE RIGHT INTERNAL CAROTID ARTERY. EVIDENCE OF ACUTE STROKE: YES. WATERSHED DISTRIBUTION ABOVE. Assessment & Plan - Diagnosis (1) CVA (cerebral vascular accident) Qualifiers: Laterality of affected vessel: bilateral Is this a current diagnosis for this admission?: Yes (2) Carotid stenosis Qualifiers: Laterality: bilateral Qualified Code(s): I65.23 - Occlusion and stenosis of bilateral carotid arteries Is this a current diagnosis for this admission?: Yes (3) Hypertensive emergency Is this a current diagnosis for this admission?: Yes (4) Hypertensive encephalopathy Is this a current diagnosis for this admission?: Yes (5) Nausea & vomiting Qualifiers: Vomiting type: unspecified Vomiting Intractability: non-intractable Qualified Code(s): R11.2 - Nausea with vomiting, unspecified Is this a current diagnosis for this admission?: Yes - Time Time Spent with patient: 25-34 minutes - Plan Summary Plan Summary: Continue nicotine patch, aspirin, Plavix, statin Toprol for hypertension hyperlipidemia and recent stroke. Continue fall precautions and physical therapy. She would benefit from acute rehabilitation.
[2017-04-03] MEDS: ONDANSETRON HCL INJ/PF 4 MG/2 ML SDV IV PRN (00:18)
[2017-04-03] MEDS: MECLIZINE HCL 25 MG TABLET PO PRN ×2 (00:18→21:31)
[2017-04-03] MEDS: OXYCODONE HCL IR 5 MG TABLET PO PRN ×2 (01:49→23:54)
[2017-04-03 05:10] LABS: ABSOLUTE BASOPHILS # (AUTO) 0.1 10^3/uL (0.0-0.2); ABSOLUTE EOSINOPHILS # (AUTO) 0.3 10^3/uL (0.0-0.6); ABSOLUTE LYMPHOCYTES (AUTO) 4.1 10^3/uL (0.5-4.7); ABSOLUTE MONOCYTES (AUTO) 0.8 10^3/uL (0.1-1.4); ABSOLUTE NEUT (AUTO) 7.4 10^3/uL (1.7-8.2); BASOPHILS % (AUTO) 0.5 % (0-2); EOSINOPHILS % (AUTO) 2.5 % (0-6); HEMOGLOBIN 14.2 g/dL (12.0-15.5); LYMPHOCYTES % (AUTO) 32.1 % (13-45); MEAN CORPUSCULAR HEMOGLOBIN 29.7 pg (27.0-33.4); MEAN CORPUSCULAR HGB CONC 33.9 g/dL (32.0-36.0); MEAN CORPUSCULAR VOLUME 88 fl (80-97); MONOCYTES % (AUTO) 6.6 % (3-13); PLATELET COUNT 389 10^3/uL (150-450); SEGMENTED NEUTROPHILS % (AUTO) 58.3 % (42-78); TOTAL CELLS COUNTED % (AUTO) 100 %; WHITE BLOOD COUNT 12.6 10^3/uL (4.0-10.5)
[2017-04-03 05:37] LABS: ALANINE AMINOTRANSFERASE 34 U/L (9-52); ALBUMIN 3.8 g/dL (3.5-5.0); ALKALINE PHOSPHATASE 67 U/L (38-126); ANION GAP 9 (5-19); ASPARTATE AMINO TRANSFERASE 24 U/L (14-36); BILIRUBIN,DIRECT 0.2 mg/dL (0.0-0.4); BILIRUBIN,TOTAL 0.3 mg/dL (0.2-1.3); BLOOD UREA NITROGEN 22 mg/dL (7-20); CALCIUM 10.3 mg/dL (8.4-10.2); CARBON DIOXIDE 31 mmol/L (22-30); CHLORIDE 101 mmol/L (98-107); GLUCOSE 103 mg/dL (75-110); PHOSPHORUS 4.3 mg/dL (2.5-4.5); POTASSIUM 4.8 mmol/L (3.6-5.0); SODIUM 140.8 mmol/L (137-145); TOTAL PROTEIN 6.3 g/dL (6.3-8.2)
[2017-04-03] MEDS: ATORVASTATIN CALCIUM 40 MG TABLET PO SCH (10:25)
[2017-04-03] MEDS: METOPROLOL SUCCINATE 25 MG TAB.SR.24H PO SCH (10:25)
[2017-04-03] MEDS: CLOPIDOGREL BISULFATE 75 MG TABLET PO SCH (10:26)
[2017-04-03] MEDS: MAGNESIUM OXIDE 400 MG TABLET PO SCH ×2 (10:26→17:32)
[2017-04-03] MEDS: ASPIRIN 81 MG TABLET, ENT COATED PO SCH (10:26)
[2017-04-03] MEDS: NICOTINE 14 MG/24 HR PATCH.TD24 TD SCH (14:37)
--- NOTE | 2017-04-03 15:23 | PDOC PROGRESS REPORT ---
Subjective Progress Note for:: 04/03/17 Subjective:: 61-year-old female who had L CEA on Mar 08 and presented to this hospital on with with a hypertensive emergency and MRI then showed an acute stroke bilateral occipital and parietal lobes more on the left. She feels better. No complaints at present. She is currently awaiting acute rehabilitation. Reason For Visit: ACUTE STROKE,HYPERTENSIVE EMERGENCY,LEUKOCYTOSIS Physical Exam Vital Signs: Temp Pulse Resp BP Pulse Ox 98.4 F 85 18 121/69 97 04/03/17 11:55 04/03/17 14:00 04/03/17 11:55 04/03/17 11:55 04/03/17 11:55 Intake & Output 04/02/17 04/03/17 04/04/17 06:59 06:59 06:59 Intake Total 789 770 399 Output Total 1350 1050 650 Balance -561 -280 -251 Weight 60 kg 60.3 kg Additional comments: Lace female lying in bed not in acute distress Lungs: Clear to auscultation bilaterally normal respiratory effort Cardiac: S1-S2 regular no murmurs heard no peripheral edema Abdomen: Soft, no focal tenderness Neurologic: Awake and alert, oriented 2. No facial droop. Improvement in right-sided hemineglect Strength 5 out of 5 upper extremity, 4+ out of 5 right upper extremity Results Laboratory Results: 04/03/17 04:45 04/03/17 04:45 04/03/17 04/03/17 04:45 04:45 WBC 12.6 H RBC 4.80 Hgb 14.2 Hct 42.0 MCV 88 MCH 29.7 MCHC 33.9 RDW 13.0 Plt Count 389 Seg Neutrophils % 58.3 Lymphocytes % 32.1 Monocytes % 6.6 Eosinophils % 2.5 Basophils % 0.5 Absolute Neutrophils 7.4 Absolute Lymphocytes 4.1 Absolute Monocytes 0.8 Absolute Eosinophils 0.3 Absolute Basophils 0.1 Sodium 140.8 Potassium 4.8 Chloride 101 Carbon Dioxide 31 H Anion Gap 9 BUN 22 H Creatinine 0.70 Est GFR ( Amer) > 60 Est GFR (Non-Af Amer) > 60 Glucose 103 Calcium 10.3 H Phosphorus 4.3 Magnesium 2.0 Total Bilirubin 0.3 AST 24 ALT 34 Alkaline Phosphatase 67 Total Protein 6.3 Albumin 3.8 Impressions: Head CT 03/27/17 00:00 IMPRESSION: 1. No acute intracranial abnormality identified. This exam was performed according to our departmental dose-optimization program, which includes automated exposure control, adjustment of the mA and/or kV according to patient size and/or use of iterative reconstruction technique. Head CTA 03/27/17 06:10 IMPRESSION: 1. 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 Symmetric flow within the bilateral anterior middle cerebral arteries. 2. Redemonstrated complete occlusion of the right common and cervical internal carotid arteries beginning within 1 cm of its origin. 3. The left common and internal carotid arteries are widely patent. No evidence of stenosis. Postoperative change compatible with endarterectomy. This exam was performed according to our departmental dose-optimization program, which includes automated exposure control, adjustment of the mA and/or kV according to patient size and/or use of iterative reconstruction technique. Neck CTA 03/27/17 06:10 IMPRESSION: 1. 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 Symmetric flow within the bilateral anterior middle cerebral arteries. 2. Redemonstrated complete occlusion of the right common and cervical internal carotid arteries beginning within 1 cm of its origin. 3. The left common and internal carotid arteries are widely patent. No evidence of stenosis. Postoperative change compatible with endarterectomy. This exam was performed according to our departmental dose-optimization program, which includes automated exposure control, adjustment of the mA and/or kV according to patient size and/or use of iterative reconstruction technique. Chest X-Ray 03/28/17 00:00 IMPRESSION: NO ACUTE RADIOGRAPHIC FINDING IN THE CHEST. Head MRI 03/29/17 00:00 IMPRESSION: ACUTE INFARCTION INVOLVING THE LEFT GREATER THAN RIGHT OCCIPITAL AND PARIETAL LOBES IN A WATERSHED DISTRIBUTION BETWEEN THE TURN DOWN MAN AND MCA TERRITORIES. CORRELATE WITH HYPOTENSION. ADDITIONAL SENESCENT CHANGE ABOVE INCLUDING CHRONIC OCCLUSION OF THE RIGHT INTERNAL CAROTID ARTERY. EVIDENCE OF ACUTE STROKE: YES. WATERSHED DISTRIBUTION ABOVE. Assessment & Plan - Diagnosis (1) CVA (cerebral vascular accident) Qualifiers: Laterality of affected vessel: bilateral Is this a current diagnosis for this admission?: Yes (2) Carotid stenosis Qualifiers: Laterality: bilateral Qualified Code(s): I65.23 - Occlusion and stenosis of bilateral carotid arteries Is this a current diagnosis for this admission?: Yes (3) Hypertensive emergency Is this a current diagnosis for this admission?: Yes (4) Hypertensive encephalopathy Is this a current diagnosis for this admission?: Yes (5) Nausea & vomiting Qualifiers: Vomiting type: unspecified Vomiting Intractability: non-intractable Qualified Code(s): R11.2 - Nausea with vomiting, unspecified Is this a current diagnosis for this admission?: Yes - Time Time Spent with patient: 25-34 minutes - Plan Summary Plan Summary: Continue nicotine patch, aspirin, Plavix, statin, and metoprolol. Continue fall precautions and physical therapy. She would benefit from acute rehabilitation.
[2017-04-04] MEDS: ATORVASTATIN CALCIUM 40 MG TABLET PO SCH (09:55)
[2017-04-04] MEDS: MAGNESIUM OXIDE 400 MG TABLET PO SCH ×2 (09:55→16:52)
[2017-04-04] MEDS: METOPROLOL SUCCINATE 25 MG TAB.SR.24H PO SCH (09:55)
[2017-04-04] MEDS: CLOPIDOGREL BISULFATE 75 MG TABLET PO SCH (09:55)
[2017-04-04] MEDS: ASPIRIN 81 MG TABLET, ENT COATED PO SCH (09:55)
[2017-04-04] MEDS: NICOTINE 14 MG/24 HR PATCH.TD24 TD SCH (12:13)
[2017-04-04] MEDS ORDERED: ESCITALOPRAM OXALATE 10 MG TABLET ONE (14:38)
[2017-04-04] MEDS ORDERED: LORAZEPAM 1 MG TABLET ONE (14:38)
--- NOTE | 2017-04-04 20:18 | PROGRESS NOTE E ---
Progress Note NAME: MANOJ FELIX : 1955 AGE: 61Y DATE: 04/04/2017 ROOM: 322 SUBJECTIVE: The patient is a 61-year-old female who recently had a left carotid endarterectomy on 03/08. She presented to the hospital with headache and hypertensive emergency. She then subsequently was found to have infarcts and had right sided margaret neglect. She currently has no complaints. OBJECTIVE: VITAL SIGNS: Stable. GENERAL: A middle-aged female, lying in bed, not in distress. HEENT: Pupils equal, reactive to light. Moist, pink oropharyngeal mucosa with no lesions. LUNGS: Clear to auscultation bilaterally. Normal respiratory effort. CARDIAC: S1, S2 regular. No murmurs heard. No peripheral edema. No cyanosis. No calf tenderness. ABDOMEN: Soft, nontender, nondistended. Bowel sounds heard. NEUROLOGIC: She is awake and alert. She is oriented to self. She has no facial droop. Motor strength is 4+/5 bilateral upper and lower extremities. No cerebellar signs. Sensation is intact and equal bilaterally. She has left sided visual field loss. ASSESSMENT/PLAN: Acute stroke and hypertensive emergency. Continue current medications. She has good blood pressure control. She would benefit from acute rehab. TIME SPENT: Twenty minutes. DICTATING PHYSICIAN: DAGMAR GALLARDO M.D. [id number] PAO#: [id number] [id number] JOB#: [id number] ACCT: [id number] cc: >
[2017-04-04] MEDS: MECLIZINE HCL 25 MG TABLET PO PRN (21:07)
[2017-04-04] MEDS: OXYCODONE HCL IR 5 MG TABLET PO PRN (21:07)
[2017-04-04] MEDS ORDERED: ESCITALOPRAM OXALATE 10 MG TABLET PO ONE (22:30)
[2017-04-05] MEDS: OXYCODONE HCL IR 5 MG TABLET PO PRN ×3 (07:19→17:41)
[2017-04-05] MEDS: ATORVASTATIN CALCIUM 40 MG TABLET PO SCH (10:10)
[2017-04-05] MEDS: ASPIRIN 81 MG TABLET, ENT COATED PO SCH (10:10)
[2017-04-05] MEDS: MAGNESIUM OXIDE 400 MG TABLET PO SCH ×2 (10:10→17:41)
[2017-04-05] MEDS: CLOPIDOGREL BISULFATE 75 MG TABLET PO SCH (10:10)
[2017-04-05] MEDS: ESCITALOPRAM OXALATE 10 MG TABLET PO SCH (10:11)
[2017-04-05] MEDS: METOPROLOL SUCCINATE 25 MG TAB.SR.24H PO SCH (10:11)
[2017-04-05] MEDS: LORAZEPAM 1 MG TABLET PO PRN (10:12)
[2017-04-05] MEDS: NICOTINE 14 MG/24 HR PATCH.TD24 TD SCH (10:13)
--- NOTE | 2017-04-05 16:49 | PDOC PROGRESS REPORT ---
Subjective Progress Note for:: 04/05/17 Subjective:: 61-year-old female who had L CEA on Mar 08 and presented to this hospital on with with a hypertensive emergency and MRI then showed an acute stroke bilateral occipital and parietal lobes more on the left. She has had some Right sided neglect and L visual field loss, is improving. No complaints at present. Awaiting acute rehabilitation. Reason For Visit: ACUTE STROKE,HYPERTENSIVE EMERGENCY,LEUKOCYTOSIS Physical Exam Vital Signs: Temp Pulse Resp BP Pulse Ox 98.0 F 73 18 130/61 H 97 04/05/17 11:36 04/05/17 14:00 04/05/17 11:36 04/05/17 11:36 04/05/17 11:36 Intake & Output 04/04/17 04/05/17 04/06/17 06:59 06:59 06:59 Intake Total 1617 405 0 Output Total 1600 600 0 Balance 17 -195 0 Weight 60.6 kg 58.7 kg Head exam: PRESENT: atraumatic, normocephalic Eye exam: PRESENT: conjunctiva pink. ABSENT: nystagmus Ear exam: PRESENT: normal external ear exam Mouth exam: PRESENT: moist Throat exam: ABSENT: tonsillar exudate Neck exam: ABSENT: carotid bruit, tracheal deviation Respiratory exam: PRESENT: clear to auscultation aracelis. ABSENT: accessory muscle use, retraction Cardiovascular exam: PRESENT: RRR GI/Abdominal exam: PRESENT: normal bowel sounds, soft. ABSENT: tenderness Rectal exam: PRESENT: deferred Neurological exam: PRESENT: alert, awake, oriented to person, oriented to place Results Laboratory Results: 04/03/17 04:45 04/03/17 04:45 Impressions: Head CT 03/27/17 00:00 IMPRESSION: 1. No acute intracranial abnormality identified. This exam was performed according to our departmental dose-optimization program, which includes automated exposure control, adjustment of the mA and/or kV according to patient size and/or use of iterative reconstruction technique. Head CTA 03/27/17 06:10 IMPRESSION: 1. 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 Symmetric flow within the bilateral anterior middle cerebral arteries. 2. Redemonstrated complete occlusion of the right common and cervical internal carotid arteries beginning within 1 cm of its origin. 3. The left common and internal carotid arteries are widely patent. No evidence of stenosis. Postoperative change compatible with endarterectomy. This exam was performed according to our departmental dose-optimization program, which includes automated exposure control, adjustment of the mA and/or kV according to patient size and/or use of iterative reconstruction technique. Neck CTA 03/27/17 06:10 IMPRESSION: 1. 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 Symmetric flow within the bilateral anterior middle cerebral arteries. 2. Redemonstrated complete occlusion of the right common and cervical internal carotid arteries beginning within 1 cm of its origin. 3. The left common and internal carotid arteries are widely patent. No evidence of stenosis. Postoperative change compatible with endarterectomy. This exam was performed according to our departmental dose-optimization program, which includes automated exposure control, adjustment of the mA and/or kV according to patient size and/or use of iterative reconstruction technique. Chest X-Ray 03/28/17 00:00 IMPRESSION: NO ACUTE RADIOGRAPHIC FINDING IN THE CHEST. Head MRI 03/29/17 00:00 IMPRESSION: ACUTE INFARCTION INVOLVING THE LEFT GREATER THAN RIGHT OCCIPITAL AND PARIETAL LOBES IN A WATERSHED DISTRIBUTION BETWEEN THE [employer]CH[employer] AND MCA TERRITORIES. CORRELATE WITH HYPOTENSION. ADDITIONAL SENESCENT CHANGE ABOVE INCLUDING CHRONIC OCCLUSION OF THE RIGHT INTERNAL CAROTID ARTERY. EVIDENCE OF ACUTE STROKE: YES. WATERSHED DISTRIBUTION ABOVE. Assessment & Plan - Diagnosis (1) CVA (cerebral vascular accident) Qualifiers: Laterality of affected vessel: bilateral Is this a current diagnosis for this admission?: Yes (2) Carotid stenosis Qualifiers: Laterality: bilateral Qualified Code(s): I65.23 - Occlusion and stenosis of bilateral carotid arteries Is this a current diagnosis for this admission?: Yes (3) Hypertensive emergency Is this a current diagnosis for this admission?: Yes (4) Hypertensive encephalopathy Is this a current diagnosis for this admission?: Yes (5) Nausea & vomiting Qualifiers: Vomiting type: unspecified Vomiting Intractability: non-intractable Qualified Code(s): R11.2 - Nausea with vomiting, unspecified Is this a current diagnosis for this admission?: Yes - Time Time Spent with patient: 15-24 minutes - Plan Summary Plan Summary: Continue current meds for hypertension and CVA. PT/OT plan for rehab.
[2017-04-06] MEDS: OXYCODONE HCL IR 5 MG TABLET PO PRN ×3 (07:44→20:24)
[2017-04-06] MEDS: METOPROLOL SUCCINATE 25 MG TAB.SR.24H PO SCH (10:20)
[2017-04-06] MEDS: MAGNESIUM OXIDE 400 MG TABLET PO SCH ×2 (10:21→18:05)
[2017-04-06] MEDS: CLOPIDOGREL BISULFATE 75 MG TABLET PO SCH (10:21)
[2017-04-06] MEDS: ASPIRIN 81 MG TABLET, ENT COATED PO SCH (10:21)
[2017-04-06] MEDS: ESCITALOPRAM OXALATE 10 MG TABLET PO SCH (10:21)
[2017-04-06] MEDS: ATORVASTATIN CALCIUM 40 MG TABLET PO SCH (10:22)
[2017-04-06] MEDS: NICOTINE 14 MG/24 HR PATCH.TD24 TD SCH (10:22)
[2017-04-06] MEDS: MECLIZINE HCL 25 MG TABLET PO PRN (17:09)
--- NOTE | 2017-04-06 18:48 | PDOC PROGRESS REPORT ---
Subjective Progress Note for:: 04/06/17 Subjective:: Pt states that she is awaiting Rehab placement. Pt states that her strength is improving. Reason For Visit: ACUTE STROKE,HYPERTENSIVE EMERGENCY,LEUKOCYTOSIS Physical Exam Vital Signs: Temp Pulse Resp BP Pulse Ox 98.4 F 97 18 118/72 95 04/06/17 11:27 04/06/17 14:00 04/06/17 11:27 04/06/17 11:27 04/06/17 11:27 Intake & Output 04/05/17 04/06/17 04/07/17 06:59 06:59 06:59 Intake Total 405 942 342 Output Total 600 1900 Balance -195 -958 342 Weight 58.7 kg 58.2 kg General appearance: PRESENT: no acute distress, well-developed, well-nourished Head exam: PRESENT: atraumatic, normocephalic Eye exam: PRESENT: conjunctiva pink, EOMI. ABSENT: scleral icterus Ear exam: PRESENT: normal external ear exam Mouth exam: PRESENT: moist, tongue midline Neck exam: ABSENT: carotid bruit, JVD, lymphadenopathy, thyromegaly Respiratory exam: PRESENT: clear to auscultation aracelis. ABSENT: rales, rhonchi, wheezes Cardiovascular exam: PRESENT: RRR. ABSENT: diastolic murmur, rubs, systolic murmur Pulses: PRESENT: normal dorsalis pedis pul Vascular exam: PRESENT: normal capillary refill GI/Abdominal exam: PRESENT: normal bowel sounds, soft. ABSENT: distended, guarding, mass, organolmegaly, rebound, tenderness Rectal exam: PRESENT: deferred Extremities exam: PRESENT: full ROM. ABSENT: calf tenderness, clubbing, pedal edema Neurological exam: PRESENT: alert, awake, oriented to person, oriented to place , oriented to time, oriented to situation, CN II-XII grossly intact. ABSENT: motor sensory deficit Psychiatric exam: PRESENT: appropriate affect, normal mood. ABSENT: homicidal ideation, suicidal ideation Skin exam: PRESENT: dry, intact, warm. ABSENT: cyanosis, rash Results Laboratory Results: 04/03/17 04:45 04/03/17 04:45 Impressions: Head CT 03/27/17 00:00 IMPRESSION: 1. No acute intracranial abnormality identified. This exam was performed according to our departmental dose-optimization program, which includes automated exposure control, adjustment of the mA and/or kV according to patient size and/or use of iterative reconstruction technique. Head CTA 03/27/17 06:10 IMPRESSION: 1. 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 Symmetric flow within the bilateral anterior middle cerebral arteries. 2. Redemonstrated complete occlusion of the right common and cervical internal carotid arteries beginning within 1 cm of its origin. 3. The left common and internal carotid arteries are widely patent. No evidence of stenosis. Postoperative change compatible with endarterectomy. This exam was performed according to our departmental dose-optimization program, which includes automated exposure control, adjustment of the mA and/or kV according to patient size and/or use of iterative reconstruction technique. Neck CTA 03/27/17 06:10 IMPRESSION: 1. 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 Symmetric flow within the bilateral anterior middle cerebral arteries. 2. Redemonstrated complete occlusion of the right common and cervical internal carotid arteries beginning within 1 cm of its origin. 3. The left common and internal carotid arteries are widely patent. No evidence of stenosis. Postoperative change compatible with endarterectomy. This exam was performed according to our departmental dose-optimization program, which includes automated exposure control, adjustment of the mA and/or kV according to patient size and/or use of iterative reconstruction technique. Chest X-Ray 03/28/17 00:00 IMPRESSION: NO ACUTE RADIOGRAPHIC FINDING IN THE CHEST. Head MRI 03/29/17 00:00 IMPRESSION: ACUTE INFARCTION INVOLVING THE LEFT GREATER THAN RIGHT OCCIPITAL AND PARIETAL LOBES IN A WATERSHED DISTRIBUTION BETWEEN THE [employer] AND MCA TERRITORIES. CORRELATE WITH HYPOTENSION. ADDITIONAL SENESCENT CHANGE ABOVE INCLUDING CHRONIC OCCLUSION OF THE RIGHT INTERNAL CAROTID ARTERY. EVIDENCE OF ACUTE STROKE: YES. WATERSHED DISTRIBUTION ABOVE. Assessment & Plan - Diagnosis (1) CVA (cerebral vascular accident) Qualifiers: Laterality of affected vessel: bilateral Is this a current diagnosis for this admission?: Yes Plan: Will continue current treatment. (2) Carotid stenosis Qualifiers: Laterality: bilateral Qualified Code(s): I65.23 - Occlusion and stenosis of bilateral carotid arteries Is this a current diagnosis for this admission?: Yes Plan: Continue current treatment. (3) Hypertensive emergency Is this a current diagnosis for this admission?: Yes Plan: Resolved. Will continue current medical management. (4) Hypertensive encephalopathy Is this a current diagnosis for this admission?: Yes (5) Nausea & vomiting Qualifiers: Vomiting type: unspecified Vomiting Intractability: non-intractable Qualified Code(s): R11.2 - Nausea with vomiting, unspecified Is this a current diagnosis for this admission?: Yes Plan: Resolved. - Time Time Spent with patient: Less than 15 minutes - Pt currently awaiting placement for Rehab.
[2017-04-06] MEDS: ONDANSETRON HCL INJ/PF 4 MG/2 ML SDV IV PRN (20:21)
[2017-04-07 06:14] LABS: ABSOLUTE BASOPHILS # (AUTO) 0.1 10^3/uL (0.0-0.2); ABSOLUTE EOSINOPHILS # (AUTO) 0.2 10^3/uL (0.0-0.6); ABSOLUTE LYMPHOCYTES (AUTO) 2.3 10^3/uL (0.5-4.7); ABSOLUTE MONOCYTES (AUTO) 1.4 10^3/uL (0.1-1.4); ABSOLUTE NEUT (AUTO) 10.3 10^3/uL (1.7-8.2); EOSINOPHILS % (AUTO) 1.5 % (0-6); HEMATOCRIT 39.4 % (36.0-47.0); HEMOGLOBIN 13.7 g/dL (12.0-15.5); LYMPHOCYTES % (AUTO) 15.8 % (13-45); MEAN CORPUSCULAR HEMOGLOBIN 29.9 pg (27.0-33.4); MEAN CORPUSCULAR HGB CONC 34.7 g/dL (32.0-36.0); MEAN CORPUSCULAR VOLUME 86 fl (80-97); MONOCYTES % (AUTO) 9.5 % (3-13); PLATELET COUNT 365 10^3/uL (150-450); RED BLOOD COUNT 4.57 10^6/uL (3.72-5.28); RED CELL DISTRIBUTION WIDTH 12.9 % (11.5-14.0); SEGMENTED NEUTROPHILS % (AUTO) 72.2 % (42-78); TOTAL CELLS COUNTED % (AUTO) 100 %; WHITE BLOOD COUNT 14.2 10^3/uL (4.0-10.5)
[2017-04-07 06:36] LABS: ANION GAP 11 (5-19); BLOOD UREA NITROGEN 16 mg/dL (7-20); CALCIUM 10.3 mg/dL (8.4-10.2); CARBON DIOXIDE 27 mmol/L (22-30); CHLORIDE 101 mmol/L (98-107); GLUCOSE 98 mg/dL (75-110); POTASSIUM 4.6 mmol/L (3.6-5.0); SODIUM 139.1 mmol/L (137-145)
[2017-04-07] MEDS: ESCITALOPRAM OXALATE 10 MG TABLET PO SCH (09:50)
[2017-04-07] MEDS: MAGNESIUM OXIDE 400 MG TABLET PO SCH ×2 (09:50→18:57)
[2017-04-07] MEDS: ASPIRIN 81 MG TABLET, ENT COATED PO SCH (09:50)
[2017-04-07] MEDS: CLOPIDOGREL BISULFATE 75 MG TABLET PO SCH (09:50)
[2017-04-07] MEDS: METOPROLOL SUCCINATE 25 MG TAB.SR.24H PO SCH (09:56)
[2017-04-07] MEDS: NICOTINE 14 MG/24 HR PATCH.TD24 TD SCH (13:05)
[2017-04-07] MEDS ORDERED: NORMAL SALINE 1000 ML 1,000 ML IV PRN (15:10)
--- NOTE | 2017-04-07 15:10 | PDOC PROGRESS REPORT ---
Subjective Progress Note for:: 04/07/17 Subjective:: Pt states that she is doing ok. Pt states that she is able to move more. Reason For Visit: ACUTE STROKE,HYPERTENSIVE EMERGENCY,LEUKOCYTOSIS Physical Exam Vital Signs: Temp Pulse Resp BP Pulse Ox 98.6 F 59 L 19 137/67 H 98 04/07/17 12:39 04/07/17 12:39 04/07/17 12:39 04/07/17 12:39 04/07/17 12:39 Intake & Output 04/06/17 04/07/17 04/08/17 06:59 06:59 06:59 Intake Total 942 1439 377 Output Total 1900 0 Balance -958 1439 377 Weight 58.2 kg 59.3 kg General appearance: PRESENT: no acute distress, well-developed, well-nourished Head exam: PRESENT: atraumatic, normocephalic Eye exam: PRESENT: conjunctiva pink, EOMI. ABSENT: scleral icterus Ear exam: PRESENT: normal external ear exam Mouth exam: PRESENT: moist, tongue midline Neck exam: ABSENT: carotid bruit, JVD, lymphadenopathy, thyromegaly Respiratory exam: PRESENT: clear to auscultation aracelis. ABSENT: rales, rhonchi, wheezes Cardiovascular exam: PRESENT: RRR. ABSENT: diastolic murmur, rubs, systolic murmur Pulses: PRESENT: normal dorsalis pedis pul Vascular exam: PRESENT: normal capillary refill GI/Abdominal exam: PRESENT: normal bowel sounds, soft. ABSENT: distended, guarding, mass, organolmegaly, rebound, tenderness Rectal exam: PRESENT: deferred Extremities exam: PRESENT: full ROM. ABSENT: calf tenderness, clubbing, pedal edema Musculoskeletal exam: PRESENT: full ROM Neurological exam: PRESENT: alert, awake, oriented to person, oriented to place , oriented to time, CN II-XII grossly intact. ABSENT: motor sensory deficit Psychiatric exam: PRESENT: appropriate affect, normal mood. ABSENT: homicidal ideation, suicidal ideation Skin exam: PRESENT: dry, intact, warm. ABSENT: cyanosis, rash Results Laboratory Results: 04/07/17 05:28 04/07/17 05:28 04/07/17 04/07/17 05:28 05:28 WBC 14.2 H RBC 4.57 Hgb 13.7 Hct 39.4 MCV 86 MCH 29.9 MCHC 34.7 RDW 12.9 Plt Count 365 Seg Neutrophils % 72.2 Lymphocytes % 15.8 Monocytes % 9.5 Eosinophils % 1.5 Basophils % 1.0 Absolute Neutrophils 10.3 H Absolute Lymphocytes 2.3 Absolute Monocytes 1.4 Absolute Eosinophils 0.2 Absolute Basophils 0.1 Sodium 139.1 Potassium 4.6 Chloride 101 Carbon Dioxide 27 Anion Gap 11 BUN 16 Creatinine 0.57 Est GFR ( Amer) > 60 Est GFR (Non-Af Amer) > 60 Glucose 98 Calcium 10.3 H Impressions: Head CT 03/27/17 00:00 IMPRESSION: 1. No acute intracranial abnormality identified. This exam was performed according to our departmental dose-optimization program, which includes automated exposure control, adjustment of the mA and/or kV according to patient size and/or use of iterative reconstruction technique. Head CTA 03/27/17 06:10 IMPRESSION: 1. 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 Symmetric flow within the bilateral anterior middle cerebral arteries. 2. Redemonstrated complete occlusion of the right common and cervical internal carotid arteries beginning within 1 cm of its origin. 3. The left common and internal carotid arteries are widely patent. No evidence of stenosis. Postoperative change compatible with endarterectomy. This exam was performed according to our departmental dose-optimization program, which includes automated exposure control, adjustment of the mA and/or kV according to patient size and/or use of iterative reconstruction technique. Neck CTA 03/27/17 06:10 IMPRESSION: 1. 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 Symmetric flow within the bilateral anterior middle cerebral arteries. 2. Redemonstrated complete occlusion of the right common and cervical internal carotid arteries beginning within 1 cm of its origin. 3. The left common and internal carotid arteries are widely patent. No evidence of stenosis. Postoperative change compatible with endarterectomy. This exam was performed according to our departmental dose-optimization program, which includes automated exposure control, adjustment of the mA and/or kV according to patient size and/or use of iterative reconstruction technique. Chest X-Ray 03/28/17 00:00 IMPRESSION: NO ACUTE RADIOGRAPHIC FINDING IN THE CHEST. Head MRI 03/29/17 00:00 IMPRESSION: ACUTE INFARCTION INVOLVING THE LEFT GREATER THAN RIGHT OCCIPITAL AND PARIETAL LOBES IN A WATERSHED DISTRIBUTION BETWEEN THE [employer]PERATING ROOM SCHEDULER AND MCA TERRITORIES. CORRELATE WITH HYPOTENSION. ADDITIONAL SENESCENT CHANGE ABOVE INCLUDING CHRONIC OCCLUSION OF THE RIGHT INTERNAL CAROTID ARTERY. EVIDENCE OF ACUTE STROKE: YES. WATERSHED DISTRIBUTION ABOVE. Assessment & Plan - Diagnosis (1) CVA (cerebral vascular accident) Qualifiers: Laterality of affected vessel: bilateral Is this a current diagnosis for this admission?: Yes Plan: Will continue current treatment. (2) Carotid stenosis Qualifiers: Laterality: bilateral Qualified Code(s): I65.23 - Occlusion and stenosis of bilateral carotid arteries Is this a current diagnosis for this admission?: Yes Plan: Continue current treatment. (3) Hypertensive emergency Is this a current diagnosis for this admission?: Yes Plan: Resolved. Will continue current medical management. (4) Hypertensive encephalopathy Is this a current diagnosis for this admission?: Yes Plan: Resolved. (5) Nausea & vomiting Qualifiers: Vomiting type: unspecified Vomiting Intractability: non-intractable Qualified Code(s): R11.2 - Nausea with vomiting, unspecified Is this a current diagnosis for this admission?: Yes Plan: Resolved. (6) Hypercalcemia due to immobilization Is this a current diagnosis for this admission?: Yes Plan: Will Start IVFs. Will check Calcium in am. - Time Time Spent with patient: 15-24 minutes Anticipated discharge: Acute Rehab
[2017-04-07] MEDS: CALCIUM CARBONATE 500 MG TAB.CHEW PO PRN (19:29)
[2017-04-07] MEDS ORDERED: METOCLOPRAMIDE HCL ORAL SOLN 10 MG/10 ML UDCUP PO ONE (20:41)
[2017-04-07] MEDS ORDERED: LIDOCAINE 2% VISCOUS SOLN 20 ML UDCUP PO ONE (20:41)
[2017-04-07] MEDS ORDERED: MAG HYDROX/AL HYDROX/SIMETH SUSP 30 ML UDCUP PO ONE (20:41)
[2017-04-07] MEDS: OXYCODONE HCL IR 5 MG TABLET PO PRN (21:09)
[2017-04-07] MEDS: ATORVASTATIN CALCIUM 40 MG TABLET PO SCH (21:09)
[2017-04-07] MEDS: ONDANSETRON HCL INJ/PF 4 MG/2 ML SDV IV PRN (21:12)
[2017-04-08] MEDS: OXYCODONE HCL IR 5 MG TABLET PO PRN ×2 (04:12→05:30)
[2017-04-08] MEDS: ONDANSETRON HCL INJ/PF 4 MG/2 ML SDV IV PRN ×2 (04:12→05:31)
[2017-04-08 06:50] LABS: ALANINE AMINOTRANSFERASE 42 U/L (9-52); ALBUMIN 3.9 g/dL (3.5-5.0); ALKALINE PHOSPHATASE 81 U/L (38-126); ANION GAP 9 (5-19); ASPARTATE AMINO TRANSFERASE 40 U/L (14-36); BILIRUBIN,DIRECT 0.2 mg/dL (0.0-0.4); BILIRUBIN,TOTAL 0.5 mg/dL (0.2-1.3); BLOOD UREA NITROGEN 13 mg/dL (7-20); CALCIUM 10.3 mg/dL (8.4-10.2); CARBON DIOXIDE 28 mmol/L (22-30); CHLORIDE 101 mmol/L (98-107); GLUCOSE 109 mg/dL (75-110); POTASSIUM 4.4 mmol/L (3.6-5.0); SODIUM 138.2 mmol/L (137-145); TOTAL PROTEIN 6.8 g/dL (6.3-8.2)
[2017-04-08] MEDS: METOPROLOL SUCCINATE 25 MG TAB.SR.24H PO SCH (11:03)
[2017-04-08] MEDS: CLOPIDOGREL BISULFATE 75 MG TABLET PO SCH (11:04)
[2017-04-08] MEDS: ASPIRIN 81 MG TABLET, ENT COATED PO SCH (11:05)
[2017-04-08] MEDS: ESCITALOPRAM OXALATE 10 MG TABLET PO SCH (11:05)
[2017-04-08] MEDS: MAGNESIUM OXIDE 400 MG TABLET PO SCH ×2 (11:05→18:25)
[2017-04-08] MEDS: NICOTINE 14 MG/24 HR PATCH.TD24 TD SCH (11:06)
[2017-04-08] MEDS: CALCIUM CARBONATE 500 MG TAB.CHEW PO PRN (11:06)
[2017-04-08] MEDS ORDERED: LANSOPRAZOLE 30 MG TAB.RAP.DR PO ONE (13:30)
[2017-04-08] MEDS ORDERED: HYDRALAZINE HCL INJ/PF 20 MG/1 ML SDV IV ONE (13:45)
[2017-04-08] MEDS ORDERED: AMLODIPINE BESYLATE 10 MG TABLET PO ONE (13:45)
[2017-04-08] MEDS: HYDRALAZINE HCL 50 MG TABLET PO SCH (18:21)
[2017-04-08] MEDS ORDERED: MAG HYDROX/AL HYDROX/SIMETH SUSP 30 ML UDCUP PO PRN (19:25)
--- NOTE | 2017-04-08 19:46 | PDOC PROGRESS REPORT ---
Subjective Progress Note for:: 04/08/17 Subjective:: Pt wants to know why she is not in Rehab. Pt states that she does not understand why it is taking so long. Reason For Visit: ACUTE STROKE,HYPERTENSIVE EMERGENCY,LEUKOCYTOSIS Physical Exam Vital Signs: Temp Pulse Resp BP Pulse Ox 99.4 F 77 18 149/69 H 100 04/08/17 16:53 04/08/17 16:53 04/08/17 16:53 04/08/17 16:53 04/08/17 16:53 Intake & Output 04/07/17 04/08/17 04/09/17 06:59 06:59 06:59 Intake Total 1439 884 356 Output Total 600 100 Balance 1439 284 256 Weight 59.3 kg 58.2 kg General appearance: PRESENT: no acute distress, well-developed, well-nourished Head exam: PRESENT: atraumatic, normocephalic Eye exam: PRESENT: conjunctiva pink, EOMI, PERRLA. ABSENT: scleral icterus Ear exam: PRESENT: normal external ear exam Mouth exam: PRESENT: moist, tongue midline Neck exam: ABSENT: carotid bruit, JVD, lymphadenopathy, thyromegaly Respiratory exam: PRESENT: clear to auscultation aracelis. ABSENT: rales, rhonchi, wheezes Cardiovascular exam: PRESENT: RRR. ABSENT: diastolic murmur, rubs, systolic murmur Pulses: PRESENT: normal dorsalis pedis pul Vascular exam: PRESENT: normal capillary refill GI/Abdominal exam: PRESENT: normal bowel sounds, soft. ABSENT: distended, guarding, mass, organolmegaly, rebound, tenderness Rectal exam: PRESENT: deferred Extremities exam: ABSENT: calf tenderness, clubbing, pedal edema Musculoskeletal exam: PRESENT: other - decreased right lower ext. Neurological exam: PRESENT: alert, awake, oriented to person, oriented to place , oriented to time, oriented to situation, CN II-XII grossly intact Psychiatric exam: PRESENT: appropriate affect, normal mood. ABSENT: homicidal ideation, suicidal ideation Skin exam: PRESENT: dry, intact, warm. ABSENT: cyanosis, rash Results Laboratory Results: 04/07/17 05:28 04/08/17 06:08 04/08/17 06:08 Sodium 138.2 Potassium 4.4 Chloride 101 Carbon Dioxide 28 Anion Gap 9 BUN 13 Creatinine 0.54 Est GFR ( Amer) > 60 Est GFR (Non-Af Amer) > 60 Glucose 109 Calcium 10.3 H Total Bilirubin 0.5 AST 40 H ALT 42 Alkaline Phosphatase 81 Total Protein 6.8 Albumin 3.9 Impressions: Head CT 03/27/17 00:00 IMPRESSION: 1. No acute intracranial abnormality identified. This exam was performed according to our departmental dose-optimization program, which includes automated exposure control, adjustment of the mA and/or kV according to patient size and/or use of iterative reconstruction technique. Head CTA 03/27/17 06:10 IMPRESSION: 1. 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 Symmetric flow within the bilateral anterior middle cerebral arteries. 2. Redemonstrated complete occlusion of the right common and cervical internal carotid arteries beginning within 1 cm of its origin. 3. The left common and internal carotid arteries are widely patent. No evidence of stenosis. Postoperative change compatible with endarterectomy. This exam was performed according to our departmental dose-optimization program, which includes automated exposure control, adjustment of the mA and/or kV according to patient size and/or use of iterative reconstruction technique. Neck CTA 03/27/17 06:10 IMPRESSION: 1. 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 Symmetric flow within the bilateral anterior middle cerebral arteries. 2. Redemonstrated complete occlusion of the right common and cervical internal carotid arteries beginning within 1 cm of its origin. 3. The left common and internal carotid arteries are widely patent. No evidence of stenosis. Postoperative change compatible with endarterectomy. This exam was performed according to our departmental dose-optimization program, which includes automated exposure control, adjustment of the mA and/or kV according to patient size and/or use of iterative reconstruction technique. Chest X-Ray 03/28/17 00:00 IMPRESSION: NO ACUTE RADIOGRAPHIC FINDING IN THE CHEST. Head MRI 03/29/17 00:00 IMPRESSION: ACUTE INFARCTION INVOLVING THE LEFT GREATER THAN RIGHT OCCIPITAL AND PARIETAL LOBES IN A WATERSHED DISTRIBUTION BETWEEN THE [employer] AND MCA TERRITORIES. CORRELATE WITH HYPOTENSION. ADDITIONAL SENESCENT CHANGE ABOVE INCLUDING CHRONIC OCCLUSION OF THE RIGHT INTERNAL CAROTID ARTERY. EVIDENCE OF ACUTE STROKE: YES. WATERSHED DISTRIBUTION ABOVE. Assessment & Plan - Diagnosis (1) CVA (cerebral vascular accident) Qualifiers: Laterality of affected vessel: bilateral Is this a current diagnosis for this admission?: Yes Plan: Will continue current treatment. (2) Carotid stenosis Qualifiers: Laterality: bilateral Qualified Code(s): I65.23 - Occlusion and stenosis of bilateral carotid arteries Is this a current diagnosis for this admission?: Yes Plan: Continue current treatment. (3) Hypertensive emergency Is this a current diagnosis for this admission?: Yes Plan: We will place patient on Norvasc, lisinopril, hydralazine and will write for as needed hydralazine. (4) Hypertensive encephalopathy Is this a current diagnosis for this admission?: Yes Plan: Resolved. (5) Nausea & vomiting Qualifiers: Vomiting type: unspecified Vomiting Intractability: non-intractable Qualified Code(s): R11.2 - Nausea with vomiting, unspecified Is this a current diagnosis for this admission?: Yes Plan: Resolved. (6) Hypercalcemia due to immobilization Is this a current diagnosis for this admission?: Yes Plan: Will Start IVFs. Will check Calcium in am.
[2017-04-08] MEDS: ATORVASTATIN CALCIUM 40 MG TABLET PO SCH (21:43)
[2017-04-09] MEDS: HYDRALAZINE HCL 50 MG TABLET PO SCH ×5 (00:36→23:31)
[2017-04-09] MEDS: MECLIZINE HCL 25 MG TABLET PO PRN ×2 (00:38→11:01)
[2017-04-09] MEDS: OXYCODONE HCL IR 5 MG TABLET PO PRN ×3 (00:38→07:40)
[2017-04-09] MEDS: LANSOPRAZOLE 30 MG TAB.RAP.DR PO SCH (07:38)
[2017-04-09 08:05] LABS: ABSOLUTE BASOPHILS # (AUTO) 0.1 10^3/uL (0.0-0.2); ABSOLUTE EOSINOPHILS # (AUTO) 0.2 10^3/uL (0.0-0.6); ABSOLUTE LYMPHOCYTES (AUTO) 1.8 10^3/uL (0.5-4.7); ABSOLUTE MONOCYTES (AUTO) 1.3 10^3/uL (0.1-1.4); ABSOLUTE NEUT (AUTO) 11.1 10^3/uL (1.7-8.2); BASOPHILS % (AUTO) 0.5 % (0-2); EOSINOPHILS % (AUTO) 1.6 % (0-6); HEMATOCRIT 39.6 % (36.0-47.0); HEMOGLOBIN 13.7 g/dL (12.0-15.5); LYMPHOCYTES % (AUTO) 12.3 % (13-45); MEAN CORPUSCULAR HEMOGLOBIN 29.9 pg (27.0-33.4); MEAN CORPUSCULAR HGB CONC 34.5 g/dL (32.0-36.0); MEAN CORPUSCULAR VOLUME 87 fl (80-97); MONOCYTES % (AUTO) 8.9 % (3-13); PLATELET COUNT 369 10^3/uL (150-450); RED BLOOD COUNT 4.58 10^6/uL (3.72-5.28); SEGMENTED NEUTROPHILS % (AUTO) 76.7 % (42-78); TOTAL CELLS COUNTED % (AUTO) 100 %; WHITE BLOOD COUNT 14.5 10^3/uL (4.0-10.5)
[2017-04-09 08:23] LABS: ALANINE AMINOTRANSFERASE 47 U/L (9-52); ALBUMIN 4.1 g/dL (3.5-5.0); ALKALINE PHOSPHATASE 77 U/L (38-126); ANION GAP 12 (5-19); ASPARTATE AMINO TRANSFERASE 37 U/L (14-36); BILIRUBIN,DIRECT 0.2 mg/dL (0.0-0.4); BILIRUBIN,TOTAL 0.5 mg/dL (0.2-1.3); BLOOD UREA NITROGEN 13 mg/dL (7-20); CALCIUM 10.4 mg/dL (8.4-10.2); CARBON DIOXIDE 26 mmol/L (22-30); CHLORIDE 100 mmol/L (98-107); GLUCOSE 103 mg/dL (75-110); POTASSIUM 4.4 mmol/L (3.6-5.0); SODIUM 137.8 mmol/L (137-145); TOTAL PROTEIN 6.8 g/dL (6.3-8.2)
[2017-04-09] MEDS: CLOPIDOGREL BISULFATE 75 MG TABLET PO SCH (11:01)
[2017-04-09] MEDS: MAGNESIUM OXIDE 400 MG TABLET PO SCH ×2 (11:01→19:39)
[2017-04-09] MEDS: ASPIRIN 81 MG TABLET, ENT COATED PO SCH (11:01)
[2017-04-09] MEDS: LISINOPRIL 10 MG TABLET PO SCH (11:02)
[2017-04-09] MEDS: ESCITALOPRAM OXALATE 10 MG TABLET PO SCH (11:02)
[2017-04-09] MEDS: METOPROLOL SUCCINATE 25 MG TAB.SR.24H PO SCH (11:02)
[2017-04-09] MEDS: AMLODIPINE BESYLATE 10 MG TABLET PO SCH (11:02)
[2017-04-09] MEDS: RINGERS SOLUTION,LACTATED 1,000 ML IV PRN ×2 (11:03→23:32)
[2017-04-09] MEDS: NICOTINE 14 MG/24 HR PATCH.TD24 TD SCH (11:03)
--- NOTE | 2017-04-09 14:36 | PDOC PROGRESS REPORT ---
Subjective Progress Note for:: 04/09/17 Subjective:: She states that she has not voided since yesterday. Patient also complains of feeling off balance when she gets up to move around. Patient denies any worsening of weakness. Nursing reports the patient's blood pressure is much improved. Patient reports that she did not sleep well last night and is requesting a sleep aid. Reason For Visit: ACUTE STROKE,HYPERTENSIVE EMERGENCY,LEUKOCYTOSIS Physical Exam Vital Signs: Temp Pulse Resp BP Pulse Ox 98.4 F 77 18 140/98 H 95 04/09/17 11:27 04/09/17 11:27 04/09/17 11:27 04/09/17 11:27 04/09/17 08:32 Intake & Output 04/08/17 04/09/17 04/10/17 06:59 06:59 06:59 Intake Total 884 940 Output Total 600 101 Balance 284 839 Weight 58.2 kg 56.7 kg General appearance: PRESENT: no acute distress, well-developed, well-nourished Head exam: PRESENT: atraumatic, normocephalic Eye exam: PRESENT: conjunctiva pink, EOMI. ABSENT: scleral icterus Ear exam: PRESENT: normal external ear exam Mouth exam: PRESENT: moist, tongue midline Neck exam: ABSENT: carotid bruit, JVD, lymphadenopathy, thyromegaly Respiratory exam: PRESENT: clear to auscultation aracelis. ABSENT: rales, rhonchi, wheezes Cardiovascular exam: PRESENT: RRR. ABSENT: diastolic murmur, rubs, systolic murmur Pulses: PRESENT: normal dorsalis pedis pul Vascular exam: PRESENT: normal capillary refill GI/Abdominal exam: PRESENT: normal bowel sounds, soft, tenderness - +suprapubic tenderness. ABSENT: distended, guarding, mass, organolmegaly, rebound Rectal exam: PRESENT: deferred Extremities exam: PRESENT: other - right sided lower ext 4/5.. ABSENT: calf tenderness, clubbing, pedal edema Neurological exam: PRESENT: alert, awake, oriented to person, oriented to place , oriented to time, oriented to situation, CN II-XII grossly intact. ABSENT: motor sensory deficit Psychiatric exam: PRESENT: appropriate affect, normal mood. ABSENT: homicidal ideation, suicidal ideation Skin exam: PRESENT: dry, intact, warm. ABSENT: cyanosis, rash Results Laboratory Results: 04/09/17 07:05 04/09/17 07:05 04/09/17 04/09/17 07:05 07:05 WBC 14.5 H RBC 4.58 Hgb 13.7 Hct 39.6 MCV 87 MCH 29.9 MCHC 34.5 RDW 13.0 Plt Count 369 Seg Neutrophils % 76.7 Lymphocytes % 12.3 L Monocytes % 8.9 Eosinophils % 1.6 Basophils % 0.5 Absolute Neutrophils 11.1 H Absolute Lymphocytes 1.8 Absolute Monocytes 1.3 Absolute Eosinophils 0.2 Absolute Basophils 0.1 Sodium 137.8 Potassium 4.4 Chloride 100 Carbon Dioxide 26 Anion Gap 12 BUN 13 Creatinine 0.50 L Est GFR ( Amer) > 60 Est GFR (Non-Af Amer) > 60 Glucose 103 Calcium 10.4 H Total Bilirubin 0.5 AST 37 H ALT 47 Alkaline Phosphatase 77 Total Protein 6.8 Albumin 4.1 Impressions: Head CT 03/27/17 00:00 IMPRESSION: 1. No acute intracranial abnormality identified. This exam was performed according to our departmental dose-optimization program, which includes automated exposure control, adjustment of the mA and/or kV according to patient size and/or use of iterative reconstruction technique. Head CTA 03/27/17 06:10 IMPRESSION: 1. 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 Symmetric flow within the bilateral anterior middle cerebral arteries. 2. Redemonstrated complete occlusion of the right common and cervical internal carotid arteries beginning within 1 cm of its origin. 3. The left common and internal carotid arteries are widely patent. No evidence of stenosis. Postoperative change compatible with endarterectomy. This exam was performed according to our departmental dose-optimization program, which includes automated exposure control, adjustment of the mA and/or kV according to patient size and/or use of iterative reconstruction technique. Neck CTA 03/27/17 06:10 IMPRESSION: 1. 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 Symmetric flow within the bilateral anterior middle cerebral arteries. 2. Redemonstrated complete occlusion of the right common and cervical internal carotid arteries beginning within 1 cm of its origin. 3. The left common and internal carotid arteries are widely patent. No evidence of stenosis. Postoperative change compatible with endarterectomy. This exam was performed according to our departmental dose-optimization program, which includes automated exposure control, adjustment of the mA and/or kV according to patient size and/or use of iterative reconstruction technique. Chest X-Ray 03/28/17 00:00 IMPRESSION: NO ACUTE RADIOGRAPHIC FINDING IN THE CHEST. Head MRI 03/29/17 00:00 IMPRESSION: ACUTE INFARCTION INVOLVING THE LEFT GREATER THAN RIGHT OCCIPITAL AND PARIETAL LOBES IN A WATERSHED DISTRIBUTION BETWEEN THE IT PROFESSIONAL AND MCA TERRITORIES. CORRELATE WITH HYPOTENSION. ADDITIONAL SENESCENT CHANGE ABOVE INCLUDING CHRONIC OCCLUSION OF THE RIGHT INTERNAL CAROTID ARTERY. EVIDENCE OF ACUTE STROKE: YES. WATERSHED DISTRIBUTION ABOVE. Assessment & Plan - Diagnosis (1) CVA (cerebral vascular accident) Qualifiers: Laterality of affected vessel: bilateral Is this a current diagnosis for this admission?: Yes Plan: Will continue current treatment. (2) Carotid stenosis Qualifiers: Laterality: bilateral Qualified Code(s): I65.23 - Occlusion and stenosis of bilateral carotid arteries Is this a current diagnosis for this admission?: Yes Plan: Continue current treatment. (3) Hypertensive emergency Is this a current diagnosis for this admission?: Yes Plan: Will continue Norvasc, lisinopril, hydralazine. (4) Hypertensive encephalopathy Is this a current diagnosis for this admission?: Yes Plan: Resolved. (5) Nausea & vomiting Qualifiers: Vomiting type: unspecified Vomiting Intractability: non-intractable Qualified Code(s): R11.2 - Nausea with vomiting, unspecified Is this a current diagnosis for this admission?: Yes Plan: Resolved. (6) Hypercalcemia due to immobilization Is this a current diagnosis for this admission?: Yes Plan: Fluids were started this morning. Will check Calcium in am. (7) History of urinary retention Is this a current diagnosis for this admission?: Yes Plan: She was bladder scan today and had 310 cc prior to trying to urinate. Will monitor patient's ability to urinate throughout hospitalization. - Time Time Spent with patient: 15-24 minutes Anticipated discharge: Home
--- NOTE | 2017-04-09 16:52 | RADIOLOGY REPORT (SQ) ---
EXAM DESCRIPTION: CT HEAD WITHOUT COMPLETED DATE/TIME: 04/09/2017 4:37 pm REASON FOR STUDY: Repeat Head CT / CVA COMPARISON: 03/27/2017. Correlation: MRI 03/29/2017. TECHNIQUE: Axial images acquired through the brain without intravenous contrast. Images reviewed wi th bone, brain and subdural windows. Images stored on PACS. All CT scanners at this facility use dose modulation, iterative reconstruction, and/or weight based d osing when appropriate to reduce radiation dose to as low as reasonably achievable (ALARA). [facility]: Dose Right [facility]: CareDose [facility]: Dose Right [facility]: Teradose 4D [facility]: Smart [employer] Info RADIATION DOSE: CT Rad equipment meets quality standard of care and radiation dose reduction techniq ues were employed. CTDIvol: 49.0 mGy. DLP: 783 mGy-cm. mGy. LIMITATIONS: None. FINDINGS: Heterogeneous low-attenuation is now evident in the left MCA and BUSINESS EDUCATION INSTRUCTOR distribution. Right occipital infarct not as well visualized. No evidence of hemorrhage or significant mass effect. No extra-axial fluid collection. IMPRESSION: Resolving infarcts. No evidence of hemorrhage. EVIDENCE OF ACUTE STROKE: NO. COMMENT: Quality ID # [id number]: Final reports with documentation of one or more dose reduction techniques (e.g., Automated exposure control, adjustment of the mA and/or kV according to patient size, use of iterative reconstruction technique) TECHNICAL DOCUMENTATION: JOB ID: [id number] [employer]- All Rights Reserved
[2017-04-09] MEDS ORDERED: MAGNESIUM CITRATE 296 ML BOTTLE PO ONE (19:00)
[2017-04-09] MEDS ORDERED: GLYCERIN (ADULT) SUPP.RECT PR ONE (20:00)
[2017-04-09] MEDS: ATORVASTATIN CALCIUM 40 MG TABLET PO SCH (22:09)
[2017-04-10] MEDS: OXYCODONE HCL IR 5 MG TABLET PO PRN ×4 (03:18→18:30)
[2017-04-10] MEDS: HYDRALAZINE HCL 50 MG TABLET PO SCH (06:56)
[2017-04-10] MEDS: LANSOPRAZOLE 30 MG TAB.RAP.DR PO SCH (06:57)
[2017-04-10] MEDS: ESCITALOPRAM OXALATE 10 MG TABLET PO SCH (10:00)
[2017-04-10] MEDS: CLOPIDOGREL BISULFATE 75 MG TABLET PO SCH (10:02)
[2017-04-10] MEDS: AMLODIPINE BESYLATE 10 MG TABLET PO SCH (10:02)
[2017-04-10] MEDS: METOPROLOL SUCCINATE 25 MG TAB.SR.24H PO SCH (10:02)
[2017-04-10] MEDS: ASPIRIN 81 MG TABLET, ENT COATED PO SCH (10:02)
[2017-04-10] MEDS: MAGNESIUM OXIDE 400 MG TABLET PO SCH ×2 (10:03→18:30)
[2017-04-10] MEDS: LISINOPRIL 10 MG TABLET PO SCH (10:03)
--- NOTE | 2017-04-10 10:20 | PDOC PROGRESS REPORT ---
Subjective Progress Note for:: 04/10/17 Subjective:: Patient states that she is feeling better today. Patient states that yesterday she did not feel well. Patient did have repeat CT of her head due to nurses concern for possible new changes. CT of head was normal. Patient had a bladder scan done earlier that day due to not urinating however only had arrived at 300 cc bladder scan was repeated later on this evening and found to have thousand cc of urine. Patient has Pressley in place. Reason For Visit: ACUTE STROKE,HYPERTENSIVE EMERGENCY,LEUKOCYTOSIS Physical Exam Vital Signs: Temp Pulse Resp BP Pulse Ox 99.3 F 76 16 117/53 L 94 04/10/17 07:50 04/10/17 07:50 04/10/17 07:50 04/10/17 07:50 04/10/17 07:50 Intake & Output 04/09/17 04/10/17 04/11/17 06:59 06:59 06:59 Intake Total 940 1240 Output Total 101 900 Balance 839 340 Weight 56.7 kg 57.9 kg General appearance: PRESENT: no acute distress, well-developed, well-nourished Head exam: PRESENT: atraumatic, normocephalic Eye exam: PRESENT: conjunctiva pink, EOMI. ABSENT: scleral icterus Ear exam: PRESENT: normal external ear exam Mouth exam: PRESENT: moist, tongue midline Neck exam: ABSENT: carotid bruit, JVD, lymphadenopathy, thyromegaly Respiratory exam: PRESENT: clear to auscultation aracelis. ABSENT: rales, rhonchi, wheezes Cardiovascular exam: PRESENT: RRR. ABSENT: diastolic murmur, rubs, systolic murmur Pulses: PRESENT: normal dorsalis pedis pul Vascular exam: PRESENT: normal capillary refill GI/Abdominal exam: PRESENT: normal bowel sounds, soft. ABSENT: distended, guarding, mass, organolmegaly, rebound, tenderness Rectal exam: PRESENT: deferred Extremities exam: PRESENT: other - + Right lower ext 4/5. ABSENT: calf tenderness, clubbing, pedal edema Musculoskeletal exam: PRESENT: other - + right lower ext strength 4/5 Neurological exam: PRESENT: alert, awake, oriented to person, oriented to place , oriented to time, oriented to situation, CN II-XII grossly intact. ABSENT: motor sensory deficit Psychiatric exam: PRESENT: appropriate affect, normal mood. ABSENT: homicidal ideation, suicidal ideation Skin exam: PRESENT: dry, intact, warm. ABSENT: cyanosis, rash Results Laboratory Results: 04/09/17 07:05 04/09/17 07:05 Impressions: Head CTA 03/27/17 06:10 IMPRESSION: 1. 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 Symmetric flow within the bilateral anterior middle cerebral arteries. 2. Redemonstrated complete occlusion of the right common and cervical internal carotid arteries beginning within 1 cm of its origin. 3. The left common and internal carotid arteries are widely patent. No evidence of stenosis. Postoperative change compatible with endarterectomy. This exam was performed according to our departmental dose-optimization program, which includes automated exposure control, adjustment of the mA and/or kV according to patient size and/or use of iterative reconstruction technique. Neck CTA 03/27/17 06:10 IMPRESSION: 1. 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 Symmetric flow within the bilateral anterior middle cerebral arteries. 2. Redemonstrated complete occlusion of the right common and cervical internal carotid arteries beginning within 1 cm of its origin. 3. The left common and internal carotid arteries are widely patent. No evidence of stenosis. Postoperative change compatible with endarterectomy. This exam was performed according to our departmental dose-optimization program, which includes automated exposure control, adjustment of the mA and/or kV according to patient size and/or use of iterative reconstruction technique. Chest X-Ray 03/28/17 00:00 IMPRESSION: NO ACUTE RADIOGRAPHIC FINDING IN THE CHEST. Head MRI 03/29/17 00:00 IMPRESSION: ACUTE INFARCTION INVOLVING THE LEFT GREATER THAN RIGHT OCCIPITAL AND PARIETAL LOBES IN A WATERSHED DISTRIBUTION BETWEEN THE FILLING OPERATOR AND MCA TERRITORIES. CORRELATE WITH HYPOTENSION. ADDITIONAL SENESCENT CHANGE ABOVE INCLUDING CHRONIC OCCLUSION OF THE RIGHT INTERNAL CAROTID ARTERY. EVIDENCE OF ACUTE STROKE: YES. WATERSHED DISTRIBUTION ABOVE. Head CT 04/09/17 15:42 IMPRESSION: Resolving infarcts. No evidence of hemorrhage. EVIDENCE OF ACUTE STROKE: NO. Assessment & Plan - Diagnosis (1) CVA (cerebral vascular accident) Qualifiers: Laterality of affected vessel: bilateral Is this a current diagnosis for this admission?: Yes Plan: Will continue current treatment. The CT of head demonstrated no acute process. (2) Carotid stenosis Qualifiers: Laterality: bilateral Qualified Code(s): I65.23 - Occlusion and stenosis of bilateral carotid arteries Is this a current diagnosis for this admission?: Yes Plan: Continue current treatment. (3) Hypertensive emergency Is this a current diagnosis for this admission?: Yes Plan: Will continue Norvasc, lisinopril, and metoprolol. Will discontinue hydralazine. (4) Hypertensive encephalopathy Is this a current diagnosis for this admission?: Yes Plan: Resolved. (5) Nausea & vomiting Qualifiers: Vomiting type: unspecified Vomiting Intractability: non-intractable Qualified Code(s): R11.2 - Nausea with vomiting, unspecified Is this a current diagnosis for this admission?: Yes Plan: Resolved. (6) Hypercalcemia due to immobilization Is this a current diagnosis for this admission?: Yes Plan: Continue IV fluids. Will check calcium in a.m. (7) History of urinary retention Is this a current diagnosis for this admission?: Yes Plan: Pressley in place. Will place patient on tamsulosin. We will have nurses work on bladder training. - Time Time Spent with patient: 15-24 minutes
[2017-04-10] MEDS ORDERED: TAMSULOSIN HCL 0.4 MG CAP.SR.24H PO ONE (10:21)
[2017-04-10] MEDS: NICOTINE 14 MG/24 HR PATCH.TD24 TD SCH (11:46)
[2017-04-10] MEDS ORDERED: TAMSULOSIN HCL 0.4 MG CAP.SR.24H PO SCH (18:00)
[2017-04-10] MEDS: RINGERS SOLUTION,LACTATED 1,000 ML IV PRN (18:33)
[2017-04-10] MEDS: ATORVASTATIN CALCIUM 40 MG TABLET PO SCH (21:28)
[2017-04-11] MEDS: LANSOPRAZOLE 30 MG TAB.RAP.DR PO SCH (06:04)
[2017-04-11] MEDS: METOPROLOL SUCCINATE 25 MG TAB.SR.24H PO SCH (09:35)
[2017-04-11] MEDS: MAGNESIUM OXIDE 400 MG TABLET PO SCH ×2 (09:36→18:22)
[2017-04-11] MEDS: CLOPIDOGREL BISULFATE 75 MG TABLET PO SCH (09:36)
[2017-04-11] MEDS: ESCITALOPRAM OXALATE 10 MG TABLET PO SCH (09:37)
[2017-04-11] MEDS: AMLODIPINE BESYLATE 10 MG TABLET PO SCH (09:37)
[2017-04-11] MEDS: ASPIRIN 81 MG TABLET, ENT COATED PO SCH (09:38)
[2017-04-11] MEDS: LISINOPRIL 10 MG TABLET PO SCH (09:38)
[2017-04-11] MEDS: OXYCODONE HCL IR 5 MG TABLET PO PRN ×2 (09:38→18:23)
[2017-04-11] MEDS: RINGERS SOLUTION,LACTATED 1,000 ML IV PRN (09:48)
[2017-04-11] MEDS: NICOTINE 14 MG/24 HR PATCH.TD24 TD SCH (13:10)
--- NOTE | 2017-04-11 14:44 | PDOC PROGRESS REPORT ---
Subjective Progress Note for:: 04/11/17 Subjective:: Pt states that she feels better today. Pt states that she is having bowel movements that are painful. Pt states that her stools are soft. Pt and Nurse states that pt walked this morning. Nursing states that pt had to have iglesias placed again due to urinary retention. Reason For Visit: ACUTE STROKE,HYPERTENSIVE EMERGENCY,LEUKOCYTOSIS Physical Exam Vital Signs: Temp Pulse Resp BP Pulse Ox 98.8 F 99 18 74/39 L 91 L 04/11/17 03:56 04/11/17 04:02 04/11/17 03:56 04/11/17 04:02 04/11/17 04:02 Intake & Output 04/10/17 04/11/17 04/12/17 06:59 06:59 06:59 Intake Total 1240 1955 Output Total 900 1250 Balance 340 705 Weight 57.9 kg 58.8 kg General appearance: PRESENT: no acute distress, well-developed, well-nourished Head exam: PRESENT: atraumatic Eye exam: PRESENT: conjunctiva pink, EOMI. ABSENT: scleral icterus Ear exam: PRESENT: normal external ear exam Mouth exam: PRESENT: moist, tongue midline Neck exam: ABSENT: carotid bruit, JVD, lymphadenopathy, thyromegaly Respiratory exam: PRESENT: clear to auscultation aracelis. ABSENT: rales, rhonchi, wheezes Cardiovascular exam: PRESENT: RRR. ABSENT: diastolic murmur, rubs, systolic murmur Pulses: PRESENT: normal dorsalis pedis pul Vascular exam: PRESENT: normal capillary refill GI/Abdominal exam: PRESENT: normal bowel sounds, soft. ABSENT: distended, guarding, mass, organolmegaly, rebound, tenderness Rectal exam: PRESENT: deferred Extremities exam: PRESENT: full ROM. ABSENT: calf tenderness, clubbing, pedal edema Musculoskeletal exam: PRESENT: other - left lower ext 5/5, Right lower ext 4/5, left upper ext 5/5, right upper ext 5/5 Neurological exam: PRESENT: alert, awake, oriented to person, oriented to place , oriented to time, oriented to situation, CN II-XII grossly intact. ABSENT: motor sensory deficit Psychiatric exam: PRESENT: appropriate affect, normal mood. ABSENT: homicidal ideation, suicidal ideation Skin exam: PRESENT: dry, intact, warm. ABSENT: cyanosis, rash Results Laboratory Results: 04/09/17 07:05 04/09/17 07:05 Impressions: Head CTA 03/27/17 06:10 IMPRESSION: 1. 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 Symmetric flow within the bilateral anterior middle cerebral arteries. 2. Redemonstrated complete occlusion of the right common and cervical internal carotid arteries beginning within 1 cm of its origin. 3. The left common and internal carotid arteries are widely patent. No evidence of stenosis. Postoperative change compatible with endarterectomy. This exam was performed according to our departmental dose-optimization program, which includes automated exposure control, adjustment of the mA and/or kV according to patient size and/or use of iterative reconstruction technique. Neck CTA 03/27/17 06:10 IMPRESSION: 1. 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 Symmetric flow within the bilateral anterior middle cerebral arteries. 2. Redemonstrated complete occlusion of the right common and cervical internal carotid arteries beginning within 1 cm of its origin. 3. The left common and internal carotid arteries are widely patent. No evidence of stenosis. Postoperative change compatible with endarterectomy. This exam was performed according to our departmental dose-optimization program, which includes automated exposure control, adjustment of the mA and/or kV according to patient size and/or use of iterative reconstruction technique. Chest X-Ray 03/28/17 00:00 IMPRESSION: NO ACUTE RADIOGRAPHIC FINDING IN THE CHEST. Head MRI 03/29/17 00:00 IMPRESSION: ACUTE INFARCTION INVOLVING THE LEFT GREATER THAN RIGHT OCCIPITAL AND PARIETAL LOBES IN A WATERSHED DISTRIBUTION BETWEEN THE PULMONARY SPECIALIST AND MCA TERRITORIES. CORRELATE WITH HYPOTENSION. ADDITIONAL SENESCENT CHANGE ABOVE INCLUDING CHRONIC OCCLUSION OF THE RIGHT INTERNAL CAROTID ARTERY. EVIDENCE OF ACUTE STROKE: YES. WATERSHED DISTRIBUTION ABOVE. Head CT 04/09/17 15:42 IMPRESSION: Resolving infarcts. No evidence of hemorrhage. EVIDENCE OF ACUTE STROKE: NO. Assessment & Plan - Diagnosis (1) CVA (cerebral vascular accident) Qualifiers: Laterality of affected vessel: bilateral Is this a current diagnosis for this admission?: Yes Plan: Will continue current treatment. The CT of head demonstrated no acute process. Pt awaiting rehab. (2) Carotid stenosis Qualifiers: Laterality: bilateral Qualified Code(s): I65.23 - Occlusion and stenosis of bilateral carotid arteries Is this a current diagnosis for this admission?: Yes Plan: Continue current treatment. (3) Hypertensive emergency Is this a current diagnosis for this admission?: Yes Plan: Will continue Norvasc, lisinopril, and metoprolol. (4) Hypertensive encephalopathy Is this a current diagnosis for this admission?: Yes Plan: Resolved. (5) Nausea & vomiting Qualifiers: Vomiting type: unspecified Vomiting Intractability: non-intractable Qualified Code(s): R11.2 - Nausea with vomiting, unspecified Is this a current diagnosis for this admission?: Yes Plan: Resolved. (6) Hypercalcemia due to immobilization Is this a current diagnosis for this admission?: Yes Plan: Continue IV fluids. Will check PTH, Vit OH 25, PTrH, Phosp, Ca. (7) History of urinary retention Is this a current diagnosis for this admission?: Yes Plan: Iglesias in place. Will continue tamsulosin. (8) Impaction of colon Is this a current diagnosis for this admission?: Yes Plan: Nurse manually dis impacted patient. Will place pt on colace. - Time Time Spent with patient: 15-24 minutes
[2017-04-11] MEDS: DOCUSATE SODIUM 100 MG CAPSULE PO SCH (18:22)
[2017-04-11] MEDS: TEMAZEPAM 7.5 MG CAPSULE PO PRN (21:03)
[2017-04-11] MEDS: LORAZEPAM 1 MG TABLET PO PRN (21:03)
[2017-04-11] MEDS: ATORVASTATIN CALCIUM 40 MG TABLET PO SCH (21:03)
[2017-04-12] MEDS: RINGERS SOLUTION,LACTATED 1,000 ML IV PRN (00:26)
[2017-04-12] MEDS: LANSOPRAZOLE 30 MG TAB.RAP.DR PO SCH (05:49)
[2017-04-12 06:32] LABS: ABSOLUTE BASOPHILS # (AUTO) 0.1 10^3/uL (0.0-0.2); ABSOLUTE EOSINOPHILS # (AUTO) 0.4 10^3/uL (0.0-0.6); ABSOLUTE MONOCYTES (AUTO) 1.4 10^3/uL (0.1-1.4); BASOPHILS % (AUTO) 0.5 % (0-2); EOSINOPHILS % (AUTO) 2.6 % (0-6); HEMATOCRIT 33.7 % (36.0-47.0); LYMPHOCYTES % (AUTO) 21.7 % (13-45); MEAN CORPUSCULAR HEMOGLOBIN 29.8 pg (27.0-33.4); MEAN CORPUSCULAR HGB CONC 34.5 g/dL (32.0-36.0); MEAN CORPUSCULAR VOLUME 87 fl (80-97); MONOCYTES % (AUTO) 10.3 % (3-13); PLATELET COUNT 293 10^3/uL (150-450); RED BLOOD COUNT 3.89 10^6/uL (3.72-5.28); SEGMENTED NEUTROPHILS % (AUTO) 64.9 % (42-78); TOTAL CELLS COUNTED % (AUTO) 100 %; WHITE BLOOD COUNT 13.8 10^3/uL (4.0-10.5)
[2017-04-12 06:40] LABS: HEMOGLOBIN 11.6 g/dL (12.0-15.5)
[2017-04-12 07:40] LABS: ALANINE AMINOTRANSFERASE 46 U/L (9-52); ALKALINE PHOSPHATASE 63 U/L (38-126); ANION GAP 10 (5-19); ASPARTATE AMINO TRANSFERASE 39 U/L (14-36); BILIRUBIN,DIRECT 0.1 mg/dL (0.0-0.4); BILIRUBIN,TOTAL 0.3 mg/dL (0.2-1.3); BLOOD UREA NITROGEN 10 mg/dL (7-20); CALCIUM 9.5 mg/dL (8.4-10.2); CARBON DIOXIDE 28 mmol/L (22-30); CHLORIDE 104 mmol/L (98-107); GLUCOSE 94 mg/dL (75-110); POTASSIUM 3.9 mmol/L (3.6-5.0); SODIUM 142.3 mmol/L (137-145); TOTAL PROTEIN 5.3 g/dL (6.3-8.2)
[2017-04-12] MEDS: OXYCODONE HCL IR 5 MG TABLET PO PRN ×4 (08:25→21:55)
[2017-04-12] MEDS: MAGNESIUM OXIDE 400 MG TABLET PO SCH ×2 (10:43→18:02)
[2017-04-12] MEDS: AMLODIPINE BESYLATE 10 MG TABLET PO SCH (10:43)
[2017-04-12] MEDS: CLOPIDOGREL BISULFATE 75 MG TABLET PO SCH (10:43)
[2017-04-12] MEDS: METOPROLOL SUCCINATE 25 MG TAB.SR.24H PO SCH (10:43)
[2017-04-12] MEDS: ESCITALOPRAM OXALATE 10 MG TABLET PO SCH (10:44)
[2017-04-12] MEDS: ASPIRIN 81 MG TABLET, ENT COATED PO SCH (10:44)
[2017-04-12] MEDS: LISINOPRIL 10 MG TABLET PO SCH (10:44)
[2017-04-12] MEDS: DOCUSATE SODIUM 100 MG CAPSULE PO SCH ×2 (10:45→18:00)
[2017-04-12] MEDS: NICOTINE 14 MG/24 HR PATCH.TD24 TD SCH (12:42)
--- NOTE | 2017-04-12 13:59 | PDOC PROGRESS REPORT ---
Subjective Progress Note for:: 04/12/17 Subjective:: Pt states that her bowel movement are not hurting currently. Pt states that she did walk today. Reason For Visit: ACUTE STROKE,HYPERTENSIVE EMERGENCY,LEUKOCYTOSIS Physical Exam Vital Signs: Temp Pulse Resp BP Pulse Ox 97.7 F 91 17 97/69 L 90 L 04/12/17 08:26 04/12/17 08:26 04/12/17 08:26 04/12/17 08:26 04/12/17 08:26 Intake & Output 04/11/17 04/12/17 04/13/17 06:59 06:59 06:59 Intake Total 1955 2510 Output Total 1250 1250 Balance 705 1260 Weight 58.8 kg 60 kg General appearance: PRESENT: no acute distress, well-developed, well-nourished Head exam: PRESENT: atraumatic, normocephalic Eye exam: PRESENT: conjunctiva pink, EOMI. ABSENT: scleral icterus Ear exam: PRESENT: normal external ear exam Mouth exam: PRESENT: moist, tongue midline Neck exam: ABSENT: carotid bruit, JVD, lymphadenopathy, thyromegaly Respiratory exam: PRESENT: clear to auscultation aracelis. ABSENT: rales, rhonchi, wheezes Cardiovascular exam: PRESENT: RRR. ABSENT: diastolic murmur, rubs, systolic murmur Pulses: PRESENT: normal dorsalis pedis pul Vascular exam: PRESENT: normal capillary refill GI/Abdominal exam: PRESENT: normal bowel sounds, soft. ABSENT: distended, guarding, mass, organolmegaly, rebound, tenderness Rectal exam: PRESENT: deferred Extremities exam: ABSENT: calf tenderness, clubbing, pedal edema Musculoskeletal exam: PRESENT: full ROM - Left leg strength 4/5, Right leg strength 5/5, + right hand and left hand 5/5 Neurological exam: PRESENT: alert, awake, oriented to person, oriented to place , oriented to time, oriented to situation, CN II-XII grossly intact. ABSENT: motor sensory deficit Psychiatric exam: PRESENT: appropriate affect, normal mood. ABSENT: homicidal ideation, suicidal ideation Skin exam: PRESENT: dry, intact, warm. ABSENT: cyanosis, rash Results Laboratory Results: 04/12/17 05:26 04/12/17 05:26 04/11/17 04/11/17 04/12/17 15:24 15:24 05:26 WBC 13.8 H RBC 3.89 Hgb 11.6 L D Hct 33.7 L MCV 87 MCH 29.8 MCHC 34.5 RDW 13.0 Plt Count 293 Seg Neutrophils % 64.9 Lymphocytes % 21.7 Monocytes % 10.3 Eosinophils % 2.6 Basophils % 0.5 Absolute Neutrophils 9.0 H Absolute Lymphocytes 3.0 Absolute Monocytes 1.4 Absolute Eosinophils 0.4 Absolute Basophils 0.1 Sodium Potassium Chloride Carbon Dioxide Anion Gap BUN Creatinine Est GFR ( Amer) Est GFR (Non-Af Amer) Glucose Calcium Phosphorus 3.5 Total Bilirubin AST ALT Alkaline Phosphatase Total Protein Albumin PTH Intact 47.9 04/12/17 05:26 WBC RBC Hgb Hct MCV MCH MCHC RDW Plt Count Seg Neutrophils % Lymphocytes % Monocytes % Eosinophils % Basophils % Absolute Neutrophils Absolute Lymphocytes Absolute Monocytes Absolute Eosinophils Absolute Basophils Sodium 142.3 Potassium 3.9 Chloride 104 Carbon Dioxide 28 Anion Gap 10 BUN 10 Creatinine 0.55 Est GFR ( Amer) > 60 Est GFR (Non-Af Amer) > 60 Glucose 94 Calcium 9.5 Phosphorus Total Bilirubin 0.3 AST 39 H ALT 46 Alkaline Phosphatase 63 Total Protein 5.3 L Albumin 3.0 L PTH Intact Impressions: Head CTA 03/27/17 06:10 IMPRESSION: 1. 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 Symmetric flow within the bilateral anterior middle cerebral arteries. 2. Redemonstrated complete occlusion of the right common and cervical internal carotid arteries beginning within 1 cm of its origin. 3. The left common and internal carotid arteries are widely patent. No evidence of stenosis. Postoperative change compatible with endarterectomy. This exam was performed according to our departmental dose-optimization program, which includes automated exposure control, adjustment of the mA and/or kV according to patient size and/or use of iterative reconstruction technique. Neck CTA 03/27/17 06:10 IMPRESSION: 1. 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 Symmetric flow within the bilateral anterior middle cerebral arteries. 2. Redemonstrated complete occlusion of the right common and cervical internal carotid arteries beginning within 1 cm of its origin. 3. The left common and internal carotid arteries are widely patent. No evidence of stenosis. Postoperative change compatible with endarterectomy. This exam was performed according to our departmental dose-optimization program, which includes automated exposure control, adjustment of the mA and/or kV according to patient size and/or use of iterative reconstruction technique. Chest X-Ray 03/28/17 00:00 IMPRESSION: NO ACUTE RADIOGRAPHIC FINDING IN THE CHEST. Head MRI 03/29/17 00:00 IMPRESSION: ACUTE INFARCTION INVOLVING THE LEFT GREATER THAN RIGHT OCCIPITAL AND PARIETAL LOBES IN A WATERSHED DISTRIBUTION BETWEEN THE BARN AND PROPERTY MANAGER AND MCA TERRITORIES. CORRELATE WITH HYPOTENSION. ADDITIONAL SENESCENT CHANGE ABOVE INCLUDING CHRONIC OCCLUSION OF THE RIGHT INTERNAL CAROTID ARTERY. EVIDENCE OF ACUTE STROKE: YES. WATERSHED DISTRIBUTION ABOVE. Head CT 04/09/17 15:42 IMPRESSION: Resolving infarcts. No evidence of hemorrhage. EVIDENCE OF ACUTE STROKE: NO. Assessment & Plan - Diagnosis (1) CVA (cerebral vascular accident) Qualifiers: Laterality of affected vessel: bilateral Is this a current diagnosis for this admission?: Yes Plan: Will continue current treatment. The CT of head demonstrated no acute process. Pt awaiting rehab. (2) Carotid stenosis Qualifiers: Laterality: bilateral Qualified Code(s): I65.23 - Occlusion and stenosis of bilateral carotid arteries Is this a current diagnosis for this admission?: Yes Plan: Continue current treatment. (3) Hypertensive emergency Is this a current diagnosis for this admission?: Yes Plan: Will Norvasc decrease dose 5 mg. Will continue lisinopril, and metoprolol. (4) Hypertensive encephalopathy Is this a current diagnosis for this admission?: Yes Plan: Resolved. (5) Nausea & vomiting Qualifiers: Vomiting type: unspecified Vomiting Intractability: non-intractable Qualified Code(s): R11.2 - Nausea with vomiting, unspecified Is this a current diagnosis for this admission?: Yes Plan: Resolved. (6) Hypercalcemia due to immobilization Is this a current diagnosis for this admission?: Yes Plan: Calcium normal. Will continue to monitor. (7) History of urinary retention Is this a current diagnosis for this admission?: Yes Plan: Will continue tamsulosin to see if this helps with possible obstructive process. (8) Impaction of colon Is this a current diagnosis for this admission?: Yes Plan: Resolved. Will continue colace. - Time Time Spent with patient: 15-24 minutes
[2017-04-12] MEDS ORDERED: TAMSULOSIN HCL 0.4 MG CAP.SR.24H PO ONE (15:00)
[2017-04-12] MEDS: TEMAZEPAM 7.5 MG CAPSULE PO PRN (20:41)
[2017-04-12] MEDS: ATORVASTATIN CALCIUM 40 MG TABLET PO SCH (21:56)
[2017-04-13 05:18] LABS: ABSOLUTE BASOPHILS # (AUTO) 0.1 10^3/uL (0.0-0.2); ABSOLUTE EOSINOPHILS # (AUTO) 0.3 10^3/uL (0.0-0.6); ABSOLUTE LYMPHOCYTES (AUTO) 3.1 10^3/uL (0.5-4.7); ABSOLUTE MONOCYTES (AUTO) 1.2 10^3/uL (0.1-1.4); ABSOLUTE NEUT (AUTO) 7.5 10^3/uL (1.7-8.2); BASOPHILS % (AUTO) 0.5 % (0-2); EOSINOPHILS % (AUTO) 2.4 % (0-6); HEMATOCRIT 33.2 % (36.0-47.0); HEMOGLOBIN 11.6 g/dL (12.0-15.5); LYMPHOCYTES % (AUTO) 25.4 % (13-45); MEAN CORPUSCULAR HGB CONC 34.8 g/dL (32.0-36.0); MEAN CORPUSCULAR VOLUME 86 fl (80-97); MONOCYTES % (AUTO) 10.1 % (3-13); PLATELET COUNT 288 10^3/uL (150-450); RED BLOOD COUNT 3.86 10^6/uL (3.72-5.28); RED CELL DISTRIBUTION WIDTH 12.9 % (11.5-14.0); SEGMENTED NEUTROPHILS % (AUTO) 61.6 % (42-78); TOTAL CELLS COUNTED % (AUTO) 100 %; WHITE BLOOD COUNT 12.2 10^3/uL (4.0-10.5)
[2017-04-13 05:39] LABS: ALANINE AMINOTRANSFERASE 78 U/L (9-52); ALBUMIN 3.1 g/dL (3.5-5.0); ALKALINE PHOSPHATASE 62 U/L (38-126); ANION GAP 10 (5-19); ASPARTATE AMINO TRANSFERASE 70 U/L (14-36); BILIRUBIN,DIRECT 0.2 mg/dL (0.0-0.4); BILIRUBIN,TOTAL 0.3 mg/dL (0.2-1.3); BLOOD UREA NITROGEN 13 mg/dL (7-20); CALCIUM 9.4 mg/dL (8.4-10.2); CARBON DIOXIDE 27 mmol/L (22-30); CHLORIDE 102 mmol/L (98-107); GLUCOSE 91 mg/dL (75-110); POTASSIUM 3.9 mmol/L (3.6-5.0); SODIUM 138.9 mmol/L (137-145); TOTAL PROTEIN 5.5 g/dL (6.3-8.2)
[2017-04-13] MEDS: LANSOPRAZOLE 30 MG TAB.RAP.DR PO SCH (06:49)
[2017-04-13] MEDS: CLOPIDOGREL BISULFATE 75 MG TABLET PO SCH (09:26)
[2017-04-13] MEDS: MAGNESIUM OXIDE 400 MG TABLET PO SCH ×2 (09:26→17:34)
[2017-04-13] MEDS: AMLODIPINE BESYLATE 5 MG TABLET PO SCH (09:26)
[2017-04-13] MEDS: ESCITALOPRAM OXALATE 10 MG TABLET PO SCH (09:26)
[2017-04-13] MEDS: ASPIRIN 81 MG TABLET, ENT COATED PO SCH (09:26)
[2017-04-13] MEDS: LISINOPRIL 10 MG TABLET PO SCH (09:26)
[2017-04-13] MEDS: DOCUSATE SODIUM 100 MG CAPSULE PO SCH ×2 (09:26→17:36)
[2017-04-13] MEDS: METOPROLOL SUCCINATE 25 MG TAB.SR.24H PO SCH (09:26)
[2017-04-13] MEDS: NICOTINE 14 MG/24 HR PATCH.TD24 TD SCH (11:12)
--- NOTE | 2017-04-13 16:47 | PDOC PROGRESS REPORT ---
Subjective Progress Note for:: 04/13/17 Subjective:: 61-year-old female who had L CEA on Mar 08 and presented to this hospital on with with a hypertensive emergency and MRI then showed acute strokes in the bilateral occipital and parietal lobes more on the left. She has had some Right sided neglect and L visual field loss, which have been gradually improving. Still waiting for acute rehabilitation, there have been payor source issues. Reason For Visit: ACUTE STROKE,HYPERTENSIVE EMERGENCY,LEUKOCYTOSIS Physical Exam Vital Signs: Temp Pulse Resp BP Pulse Ox 99.2 F 76 18 113/60 93 04/12/17 23:07 04/12/17 23:07 04/12/17 23:07 04/12/17 23:07 04/12/17 23:07 Intake & Output 04/12/17 04/13/17 04/14/17 06:59 06:59 06:59 Intake Total 2510 2228 Output Total 1250 800 Balance 1260 1428 Weight 60 kg 59.874 kg Additional comments: Head exam: PRESENT: atraumatic, normocephalic Eye exam: PRESENT: conjunctiva pink. ABSENT: nystagmus Ear exam: PRESENT: normal external ear exam Mouth exam: PRESENT: moist Throat exam: ABSENT: tonsillar exudate Neck exam: ABSENT: carotid bruit, tracheal deviation Respiratory exam: PRESENT: clear to auscultation aracelis. ABSENT: accessory muscle use, retraction Cardiovascular exam: PRESENT: RRR GI/Abdominal exam: PRESENT: normal bowel sounds, soft. ABSENT: tenderness Rectal exam: PRESENT: deferred Neurological exam: PRESENT: alert, awake, oriented to person, oriented to place Results Laboratory Results: 04/13/17 04:56 04/13/17 04:56 04/13/17 04/13/17 04:56 04:56 WBC 12.2 H RBC 3.86 Hgb 11.6 L Hct 33.2 L MCV 86 MCH 30.0 MCHC 34.8 RDW 12.9 Plt Count 288 Seg Neutrophils % 61.6 Lymphocytes % 25.4 Monocytes % 10.1 Eosinophils % 2.4 Basophils % 0.5 Absolute Neutrophils 7.5 Absolute Lymphocytes 3.1 Absolute Monocytes 1.2 Absolute Eosinophils 0.3 Absolute Basophils 0.1 Sodium 138.9 Potassium 3.9 Chloride 102 Carbon Dioxide 27 Anion Gap 10 BUN 13 Creatinine 0.52 Est GFR ( Amer) > 60 Est GFR (Non-Af Amer) > 60 Glucose 91 Calcium 9.4 Total Bilirubin 0.3 AST 70 H ALT 78 H Alkaline Phosphatase 62 Total Protein 5.5 L Albumin 3.1 L Impressions: Head CTA 03/27/17 06:10 IMPRESSION: 1. 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 Symmetric flow within the bilateral anterior middle cerebral arteries. 2. Redemonstrated complete occlusion of the right common and cervical internal carotid arteries beginning within 1 cm of its origin. 3. The left common and internal carotid arteries are widely patent. No evidence of stenosis. Postoperative change compatible with endarterectomy. This exam was performed according to our departmental dose-optimization program, which includes automated exposure control, adjustment of the mA and/or kV according to patient size and/or use of iterative reconstruction technique. Neck CTA 03/27/17 06:10 IMPRESSION: 1. 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 Symmetric flow within the bilateral anterior middle cerebral arteries. 2. Redemonstrated complete occlusion of the right common and cervical internal carotid arteries beginning within 1 cm of its origin. 3. The left common and internal carotid arteries are widely patent. No evidence of stenosis. Postoperative change compatible with endarterectomy. This exam was performed according to our departmental dose-optimization program, which includes automated exposure control, adjustment of the mA and/or kV according to patient size and/or use of iterative reconstruction technique. Chest X-Ray 03/28/17 00:00 IMPRESSION: NO ACUTE RADIOGRAPHIC FINDING IN THE CHEST. Head MRI 03/29/17 00:00 IMPRESSION: ACUTE INFARCTION INVOLVING THE LEFT GREATER THAN RIGHT OCCIPITAL AND PARIETAL LOBES IN A WATERSHED DISTRIBUTION BETWEEN THE AMMUNITION ASSEMBLY II LABORER AND MCA TERRITORIES. CORRELATE WITH HYPOTENSION. ADDITIONAL SENESCENT CHANGE ABOVE INCLUDING CHRONIC OCCLUSION OF THE RIGHT INTERNAL CAROTID ARTERY. EVIDENCE OF ACUTE STROKE: YES. WATERSHED DISTRIBUTION ABOVE. Head CT 04/09/17 15:42 IMPRESSION: Resolving infarcts. No evidence of hemorrhage. EVIDENCE OF ACUTE STROKE: NO. Assessment & Plan - Diagnosis (1) CVA (cerebral vascular accident) Qualifiers: Laterality of affected vessel: bilateral Is this a current diagnosis for this admission?: Yes Plan: Continue current meds including Aspirin, Plavix, amlodipine, lisinopril,Atorvastatin. Continue physical therapy. (2) Carotid stenosis Qualifiers: Laterality: bilateral Qualified Code(s): I65.23 - Occlusion and stenosis of bilateral carotid arteries Is this a current diagnosis for this admission?: Yes Plan: Status post left carotid endarterectomy last month. (3) Hypertensive emergency Is this a current diagnosis for this admission?: Yes Plan: Resolved. Continue current medications. (4) Hypertensive encephalopathy Is this a current diagnosis for this admission?: Yes (5) Nausea & vomiting Qualifiers: Vomiting type: unspecified Vomiting Intractability: non-intractable Qualified Code(s): R11.2 - Nausea with vomiting, unspecified Is this a current diagnosis for this admission?: Yes Plan: Resolved. (6) Urinary retention Is this a current diagnosis for this admission?: Yes Plan: Continue Flomax
[2017-04-13] MEDS: TAMSULOSIN HCL 0.4 MG CAP.SR.24H PO SCH (17:34)
[2017-04-13] MEDS: OXYCODONE HCL IR 5 MG TABLET PO PRN (20:55)
[2017-04-13] MEDS: ATORVASTATIN CALCIUM 40 MG TABLET PO SCH (21:52)
[2017-04-14] MEDS: OXYCODONE HCL IR 5 MG TABLET PO PRN ×4 (00:57→21:59)
[2017-04-14] MEDS: LANSOPRAZOLE 30 MG TAB.RAP.DR PO SCH (06:37)
[2017-04-14] MEDS: CLOPIDOGREL BISULFATE 75 MG TABLET PO SCH (10:12)
[2017-04-14] MEDS: METOPROLOL SUCCINATE 25 MG TAB.SR.24H PO SCH (10:12)
[2017-04-14] MEDS: MAGNESIUM OXIDE 400 MG TABLET PO SCH ×2 (10:12→18:47)
[2017-04-14] MEDS: ASPIRIN 81 MG TABLET, ENT COATED PO SCH (10:12)
[2017-04-14] MEDS: LISINOPRIL 10 MG TABLET PO SCH (10:12)
[2017-04-14] MEDS: ESCITALOPRAM OXALATE 10 MG TABLET PO SCH (10:12)
[2017-04-14] MEDS: AMLODIPINE BESYLATE 5 MG TABLET PO SCH (10:12)
[2017-04-14] MEDS: DOCUSATE SODIUM 100 MG CAPSULE PO SCH ×2 (10:13→18:47)
[2017-04-14] MEDS: NICOTINE 14 MG/24 HR PATCH.TD24 TD SCH (11:21)
--- NOTE | 2017-04-14 17:12 | PDOC PROGRESS REPORT ---
Subjective Progress Note for:: 04/14/17 Subjective:: 61-year-old female who had L CEA on Mar 08 and presented to this hospital on with with a hypertensive emergency and MRI then showed acute strokes in the bilateral occipital and parietal lobes more on the left. She has had some Right sided neglect and L visual field loss, which have been gradually improving. Still waiting for acute rehabilitation to payor source issues. No complaints at present. She sitting up in bed eating a slice of pizza. Her friend is by the bedside and tells me that she has [facility] benefits and they are investigating options to get her to a subacute rehab. Reason For Visit: ACUTE STROKE,HYPERTENSIVE EMERGENCY,LEUKOCYTOSIS Physical Exam Vital Signs: Temp Pulse Resp BP Pulse Ox 99.1 F 72 18 117/55 L 93 04/14/17 04:29 04/14/17 04:29 04/14/17 01:21 04/14/17 04:29 04/14/17 04:29 Intake & Output 04/13/17 04/14/17 04/15/17 06:59 06:59 06:59 Intake Total 2228 440 Output Total 800 500 Balance 1428 -60 Weight 59.874 kg Additional comments: Middle-aged female sitting up in bed not in acute distress Lungs: Clear to auscultation bilaterally Cardiac: S1-S2 regular no murmurs heard no peripheral edema no cyanosis Abdomen: Soft, no focal tenderness normal bowel sounds Skin: Warm and dry Neurologic: Awake and alert oriented 2. No facial droop. Speech is clear and fluent. Motor strength 5 out of 5 bilateral upper and lower extremities Results Laboratory Results: 04/13/17 04:56 04/13/17 04:56 04/13/17 09:00 Stool Occult Blood POSITIVE Impressions: Head CTA 03/27/17 06:10 IMPRESSION: 1. 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 Symmetric flow within the bilateral anterior middle cerebral arteries. 2. Redemonstrated complete occlusion of the right common and cervical internal carotid arteries beginning within 1 cm of its origin. 3. The left common and internal carotid arteries are widely patent. No evidence of stenosis. Postoperative change compatible with endarterectomy. This exam was performed according to our departmental dose-optimization program, which includes automated exposure control, adjustment of the mA and/or kV according to patient size and/or use of iterative reconstruction technique. Neck CTA 03/27/17 06:10 IMPRESSION: 1. 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 Symmetric flow within the bilateral anterior middle cerebral arteries. 2. Redemonstrated complete occlusion of the right common and cervical internal carotid arteries beginning within 1 cm of its origin. 3. The left common and internal carotid arteries are widely patent. No evidence of stenosis. Postoperative change compatible with endarterectomy. This exam was performed according to our departmental dose-optimization program, which includes automated exposure control, adjustment of the mA and/or kV according to patient size and/or use of iterative reconstruction technique. Chest X-Ray 03/28/17 00:00 IMPRESSION: NO ACUTE RADIOGRAPHIC FINDING IN THE CHEST. Head MRI 03/29/17 00:00 IMPRESSION: ACUTE INFARCTION INVOLVING THE LEFT GREATER THAN RIGHT OCCIPITAL AND PARIETAL LOBES IN A WATERSHED DISTRIBUTION BETWEEN THE LOWER SCHOOL MUSIC TEACHER AND MCA TERRITORIES. CORRELATE WITH HYPOTENSION. ADDITIONAL SENESCENT CHANGE ABOVE INCLUDING CHRONIC OCCLUSION OF THE RIGHT INTERNAL CAROTID ARTERY. EVIDENCE OF ACUTE STROKE: YES. WATERSHED DISTRIBUTION ABOVE. Head CT 04/09/17 15:42 IMPRESSION: Resolving infarcts. No evidence of hemorrhage. EVIDENCE OF ACUTE STROKE: NO. Assessment & Plan - Diagnosis (1) CVA (cerebral vascular accident) Qualifiers: Laterality of affected vessel: bilateral Is this a current diagnosis for this admission?: Yes Plan: Continue current meds including Aspirin, Plavix, amlodipine, lisinopril, Atorvastatin. Continue physical therapy. (2) Carotid stenosis Qualifiers: Laterality: bilateral Qualified Code(s): I65.23 - Occlusion and stenosis of bilateral carotid arteries Is this a current diagnosis for this admission?: Yes Plan: Status post left carotid endarterectomy last month. (3) Hypertensive emergency Is this a current diagnosis for this admission?: Yes Plan: Resolved. Continue current medications. (4) Hypertensive encephalopathy Is this a current diagnosis for this admission?: Yes Plan: Resolved. (5) Nausea & vomiting Qualifiers: Vomiting type: unspecified Vomiting Intractability: non-intractable Qualified Code(s): R11.2 - Nausea with vomiting, unspecified Is this a current diagnosis for this admission?: Yes Plan: Resolved. (6) Urinary retention Is this a current diagnosis for this admission?: Yes Plan: Resolved. Continue Flomax. [place] discontinued. - Time Time Spent with patient: Less than 15 minutes
[2017-04-14] MEDS: TAMSULOSIN HCL 0.4 MG CAP.SR.24H PO SCH (18:47)
[2017-04-14] MEDS: ATORVASTATIN CALCIUM 40 MG TABLET PO SCH (21:59)
[2017-04-15] MEDS: LANSOPRAZOLE 30 MG TAB.RAP.DR PO SCH (05:36)
[2017-04-15] MEDS: METOPROLOL SUCCINATE 25 MG TAB.SR.24H PO SCH (09:53)
[2017-04-15] MEDS: CLOPIDOGREL BISULFATE 75 MG TABLET PO SCH (09:53)
[2017-04-15] MEDS: MAGNESIUM OXIDE 400 MG TABLET PO SCH ×2 (09:53→17:36)
[2017-04-15] MEDS: ASPIRIN 81 MG TABLET, ENT COATED PO SCH (09:53)
[2017-04-15] MEDS: AMLODIPINE BESYLATE 5 MG TABLET PO SCH (09:53)
[2017-04-15] MEDS: LISINOPRIL 10 MG TABLET PO SCH (09:53)
[2017-04-15] MEDS: ESCITALOPRAM OXALATE 10 MG TABLET PO SCH (09:53)
[2017-04-15] MEDS: DOCUSATE SODIUM 100 MG CAPSULE PO SCH ×2 (09:53→17:36)
[2017-04-15] MEDS: NICOTINE 14 MG/24 HR PATCH.TD24 TD SCH (11:13)
[2017-04-15] MEDS: TAMSULOSIN HCL 0.4 MG CAP.SR.24H PO SCH (17:35)
[2017-04-15] MEDS: OXYCODONE HCL IR 5 MG TABLET PO PRN ×2 (17:36→22:37)
--- NOTE | 2017-04-15 18:02 | PDOC PROGRESS REPORT ---
Subjective Progress Note for:: 04/15/17 Subjective:: 61-year-old female who had L CEA on Mar 08 and presented to this hospital on with with a hypertensive emergency and MRI then showed acute strokes in the bilateral occipital and parietal lobes more on the left. She has had some Right sided neglect and L visual field loss, which have been gradually improving. Still waiting for acute rehabilitation to payor source issues. No complaints at present. She sitting up in bed eating a slice of pizza. Her friend is by the bedside and tells me that she has VA benefits and they are investigating options to get her to a subacute rehab. Reason For Visit: ACUTE STROKE,HYPERTENSIVE EMERGENCY,LEUKOCYTOSIS Physical Exam Vital Signs: Temp Pulse Resp BP Pulse Ox 98.6 F 72 18 96/57 L 98 04/15/17 12:47 04/15/17 14:00 04/15/17 12:47 04/15/17 12:47 04/15/17 12:47 Intake & Output 04/14/17 04/15/17 04/16/17 06:59 06:59 06:59 Intake Total 440 452 600 Output Total 500 Balance -60 452 600 Weight 57.7 kg General appearance: PRESENT: no acute distress Head exam: PRESENT: atraumatic, normocephalic Respiratory exam: PRESENT: clear to auscultation aracelis, unlabored. ABSENT: accessory muscle use GI/Abdominal exam: PRESENT: normal bowel sounds, soft. ABSENT: tenderness Rectal exam: PRESENT: deferred Results Laboratory Results: 04/13/17 04:56 04/13/17 04:56 Impressions: Head CTA 03/27/17 06:10 IMPRESSION: 1. 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 Symmetric flow within the bilateral anterior middle cerebral arteries. 2. Redemonstrated complete occlusion of the right common and cervical internal carotid arteries beginning within 1 cm of its origin. 3. The left common and internal carotid arteries are widely patent. No evidence of stenosis. Postoperative change compatible with endarterectomy. This exam was performed according to our departmental dose-optimization program, which includes automated exposure control, adjustment of the mA and/or kV according to patient size and/or use of iterative reconstruction technique. Neck CTA 03/27/17 06:10 IMPRESSION: 1. 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 Symmetric flow within the bilateral anterior middle cerebral arteries. 2. Redemonstrated complete occlusion of the right common and cervical internal carotid arteries beginning within 1 cm of its origin. 3. The left common and internal carotid arteries are widely patent. No evidence of stenosis. Postoperative change compatible with endarterectomy. This exam was performed according to our departmental dose-optimization program, which includes automated exposure control, adjustment of the mA and/or kV according to patient size and/or use of iterative reconstruction technique. Chest X-Ray 03/28/17 00:00 IMPRESSION: NO ACUTE RADIOGRAPHIC FINDING IN THE CHEST. Head MRI 03/29/17 00:00 IMPRESSION: ACUTE INFARCTION INVOLVING THE LEFT GREATER THAN RIGHT OCCIPITAL AND PARIETAL LOBES IN A WATERSHED DISTRIBUTION BETWEEN THE ENGLISH LANGUAGE LEARNER TUTOR AND MCA TERRITORIES. CORRELATE WITH HYPOTENSION. ADDITIONAL SENESCENT CHANGE ABOVE INCLUDING CHRONIC OCCLUSION OF THE RIGHT INTERNAL CAROTID ARTERY. EVIDENCE OF ACUTE STROKE: YES. WATERSHED DISTRIBUTION ABOVE. Head CT 04/09/17 15:42 IMPRESSION: Resolving infarcts. No evidence of hemorrhage. EVIDENCE OF ACUTE STROKE: NO. Assessment & Plan - Diagnosis (1) CVA (cerebral vascular accident) Qualifiers: Laterality of affected vessel: bilateral Is this a current diagnosis for this admission?: Yes (2) Carotid stenosis Qualifiers: Laterality: bilateral Qualified Code(s): I65.23 - Occlusion and stenosis of bilateral carotid arteries Is this a current diagnosis for this admission?: Yes (3) Hypertensive emergency Is this a current diagnosis for this admission?: Yes (4) Hypertensive encephalopathy Is this a current diagnosis for this admission?: Yes (5) Nausea & vomiting Qualifiers: Vomiting type: unspecified Vomiting Intractability: non-intractable Qualified Code(s): R11.2 - Nausea with vomiting, unspecified Is this a current diagnosis for this admission?: Yes (6) Urinary retention Is this a current diagnosis for this admission?: Yes - Time Time Spent with patient: Less than 15 minutes - Plan Summary Plan Summary: Needing intermediate facility placement for subacute rehabilitation.
[2017-04-15] MEDS: ATORVASTATIN CALCIUM 40 MG TABLET PO SCH (22:36)
[2017-04-16] MEDS: TEMAZEPAM 7.5 MG CAPSULE PO PRN ×2 (02:55→18:54)
[2017-04-16] MEDS: LANSOPRAZOLE 30 MG TAB.RAP.DR PO SCH (05:40)
[2017-04-16] MEDS: METOPROLOL SUCCINATE 25 MG TAB.SR.24H PO SCH (11:02)
[2017-04-16] MEDS: ESCITALOPRAM OXALATE 10 MG TABLET PO SCH (11:03)
[2017-04-16] MEDS: ASPIRIN 81 MG TABLET, ENT COATED PO SCH (11:03)
[2017-04-16] MEDS: DOCUSATE SODIUM 100 MG CAPSULE PO SCH ×2 (11:03→17:34)
[2017-04-16] MEDS: CLOPIDOGREL BISULFATE 75 MG TABLET PO SCH (11:04)
[2017-04-16] MEDS: MAGNESIUM OXIDE 400 MG TABLET PO SCH ×2 (11:05→17:35)
[2017-04-16] MEDS: LISINOPRIL 10 MG TABLET PO SCH (11:06)
[2017-04-16] MEDS: NICOTINE 14 MG/24 HR PATCH.TD24 TD SCH (11:46)
[2017-04-16] MEDS: TAMSULOSIN HCL 0.4 MG CAP.SR.24H PO SCH (17:34)
--- NOTE | 2017-04-16 19:11 | PDOC PROGRESS REPORT ---
Subjective Progress Note for:: 04/16/17 Subjective:: No complaints Reason For Visit: ACUTE STROKE,HYPERTENSIVE EMERGENCY,LEUKOCYTOSIS Physical Exam Vital Signs: Temp Pulse Resp BP Pulse Ox 99.0 F 98 16 102/52 L 91 L 04/16/17 12:18 04/16/17 14:00 04/16/17 12:18 04/16/17 12:18 04/16/17 12:18 Intake & Output 04/15/17 04/16/17 04/17/17 06:59 06:59 06:59 Intake Total 452 840 222 Output Total 650 Balance 452 190 222 Weight 57.7 kg 58.8 kg General appearance: PRESENT: no acute distress, cooperative Eye exam: ABSENT: nystagmus Mouth exam: PRESENT: neck supple Neck exam: ABSENT: tenderness, tracheal deviation Respiratory exam: PRESENT: clear to auscultation aracelis, unlabored GI/Abdominal exam: PRESENT: normal bowel sounds. ABSENT: tenderness Results Laboratory Results: 04/13/17 04:56 04/13/17 04:56 Impressions: Head CTA 03/27/17 06:10 IMPRESSION: 1. Redemonstrated occlusion of the intracranial right ICA to the level of the paraclinoid right ICA where there is reconstitution of flow through multiple channels of the [place]. Symmetric flow within the bilateral anterior middle cerebral arteries. 2. Redemonstrated complete occlusion of the right common and cervical internal carotid arteries beginning within 1 cm of its origin. 3. The left common and internal carotid arteries are widely patent. No evidence of stenosis. Postoperative change compatible with endarterectomy. This exam was performed according to our departmental dose-optimization program, which includes automated exposure control, adjustment of the mA and/or kV according to patient size and/or use of iterative reconstruction technique. Neck CTA 03/27/17 06:10 IMPRESSION: 1. Redemonstrated occlusion of the intracranial right ICA to the level of the paraclinoid right ICA where there is reconstitution of flow through multiple channels of the [place]. Symmetric flow within the bilateral anterior middle cerebral arteries. 2. Redemonstrated complete occlusion of the right common and cervical internal carotid arteries beginning within 1 cm of its origin. 3. The left common and internal carotid arteries are widely patent. No evidence of stenosis. Postoperative change compatible with endarterectomy. This exam was performed according to our departmental dose-optimization program, which includes automated exposure control, adjustment of the mA and/or kV according to patient size and/or use of iterative reconstruction technique. Chest X-Ray 03/28/17 00:00 IMPRESSION: NO ACUTE RADIOGRAPHIC FINDING IN THE CHEST. Head MRI 03/29/17 00:00 IMPRESSION: ACUTE INFARCTION INVOLVING THE LEFT GREATER THAN RIGHT OCCIPITAL AND PARIETAL LOBES IN A WATERSHED DISTRIBUTION BETWEEN THE DIRECTOR OF PRIMARY AND MCA TERRITORIES. CORRELATE WITH HYPOTENSION. ADDITIONAL SENESCENT CHANGE ABOVE INCLUDING CHRONIC OCCLUSION OF THE RIGHT INTERNAL CAROTID ARTERY. EVIDENCE OF ACUTE STROKE: YES. WATERSHED DISTRIBUTION ABOVE. Head CT 04/09/17 15:42 IMPRESSION: Resolving infarcts. No evidence of hemorrhage. EVIDENCE OF ACUTE STROKE: NO. Assessment & Plan - Diagnosis (1) CVA (cerebral vascular accident) Qualifiers: Laterality of affected vessel: bilateral Is this a current diagnosis for this admission?: Yes (2) Carotid stenosis Qualifiers: Laterality: bilateral Qualified Code(s): I65.23 - Occlusion and stenosis of bilateral carotid arteries Is this a current diagnosis for this admission?: Yes (3) Hypertensive emergency Is this a current diagnosis for this admission?: Yes (4) Hypertensive encephalopathy Is this a current diagnosis for this admission?: Yes (5) Nausea & vomiting Qualifiers: Vomiting type: unspecified Vomiting Intractability: non-intractable Qualified Code(s): R11.2 - Nausea with vomiting, unspecified Is this a current diagnosis for this admission?: Yes (6) Urinary retention Is this a current diagnosis for this admission?: Yes - Time Time Spent with patient: Less than 15 minutes - Plan Summary Plan Summary: Discharge home once disposition can be determined.
[2017-04-16] MEDS: ATORVASTATIN CALCIUM 40 MG TABLET PO SCH (22:40)
[2017-04-17] MEDS: ASPIRIN 81 MG TABLET, ENT COATED PO SCH (06:05)
[2017-04-17] MEDS: LANSOPRAZOLE 30 MG TAB.RAP.DR PO SCH (06:05)
[2017-04-17] MEDS: METOPROLOL SUCCINATE 25 MG TAB.SR.24H PO SCH (10:53)
[2017-04-17] MEDS: ESCITALOPRAM OXALATE 10 MG TABLET PO SCH (10:53)
[2017-04-17] MEDS: DOCUSATE SODIUM 100 MG CAPSULE PO SCH (10:53)
[2017-04-17] MEDS: MAGNESIUM OXIDE 400 MG TABLET PO SCH (10:53)
[2017-04-17] MEDS: CLOPIDOGREL BISULFATE 75 MG TABLET PO SCH (10:53)
[2017-04-17] MEDS: LISINOPRIL 10 MG TABLET PO SCH (10:53)
[2017-04-17 13:17] VITALS: BP 125/61
--- NOTE | 2017-04-17 14:46 | PDOC DISCHARGE SUMMARY ---
General - Admit/Disc Date/PCP Admission Date/Primary Care Provider: 03/29/17 14:00 Vascular Surgery: Dr. Parsons in [place] Discharge Date: 04/17/17 - Discharge Diagnosis (1) CVA (cerebral vascular accident) Is this a current diagnosis for this admission?: Yes (2) Carotid stenosis Is this a current diagnosis for this admission?: Yes (3) Hypertensive emergency Is this a current diagnosis for this admission?: Yes (4) Hypertensive encephalopathy Is this a current diagnosis for this admission?: Yes (5) Nausea & vomiting Is this a current diagnosis for this admission?: Yes (6) Urinary retention Is this a current diagnosis for this admission?: Yes - Additional Information Resuscitation Status: Full Code Discharge Diet: Cardiac Discharge Activity: Activity As Tolerated Prescriptions: Clopidogrel Bisulfate [Plavix 75 mg Tablet] 75 mg PO DAILY 30 Days #30 tablet Escitalopram Oxalate [Lexapro 10 mg Tablet] 10 mg PO DAILY 30 Days #30 tablet Lisinopril [Prinivil 10 mg Tablet] 20 mg PO DAILY 30 Days #30 tablet Magnesium Oxide [Mag-Ox 400 mg Tablet] 400 mg PO BID 30 Days #30 tablet Metoprolol Succinate [Toprol Xl 25 mg Tab.sr] 25 mg PO DAILY 30 Days #30 tab.sr.24h Nicotine [Nicoderm 14 mg/24 Hr Transdermal Patch] 1 each TD DAILY@1200 30 Days # 30 patch.td24 Tamsulosin HCl [Flomax 0.4 mg Cap.sr] 0.4 mg PO PCSUPPER 30 Days #30 cap.sr.24h Home Medications: Aspirin [Adult Low Dose Aspirin EC] 81 mg PO DAILY 03/27/17 Atorvastatin Calcium [Lipitor 40 mg Tablet] 40 mg PO DAILY 03/27/17 Oxycodone HCl [Oxy-Ir 5 mg Tablet] 5 mg PO Q6HP PRN MDD ONLY FOR 5 DAYS Aspirin [Ecotrin 81 mg EC Tablet] 81 mg PO DAILY tabec 04/17/17 Clopidogrel Bisulfate [Plavix 75 mg Tablet] 75 mg PO DAILY 30 Days #30 tablet Docusate Sodium [Colace 100 mg Capsule] 100 mg PO BID capsule 04/17/17 Escitalopram Oxalate [Lexapro 10 mg Tablet] 10 mg PO DAILY 30 Days #30 tablet Lisinopril [Prinivil 10 mg Tablet] 20 mg PO DAILY 30 Days #30 tablet 04/17/17 Magnesium Oxide [Mag-Ox 400 mg Tablet] 400 mg PO BID 30 Days #30 tablet Metoprolol Succinate [Toprol Xl 25 mg Tab.sr] 25 mg PO DAILY 30 Days #30 tab.sr.24h 04/17/17 Nicotine [Nicoderm 14 mg/24 Hr Transdermal Patch] 1 each TD DAILY@1200 30 Days # 30 patch.td24 04/17/17 Tamsulosin HCl [Flomax 0.4 mg Cap.sr] 0.4 mg PO PCSUPPER 30 Days #30 cap.sr.24h 04/17/17 History of Present Illness History of Present Illness: MANOJ FELIX is a 61 year old femalewho had L CEA on Mar 08 and presented to this hospital on 03/27 with with a hypertensive emergency and MRI then showed acute strokes in the bilateral occipital and parietal lobes more on the left. She has had some Right sided neglect and L visual field loss, which have been gradually improving. She will be discharge home today with family care. Her weakness has improved significantly and she needs to follow up with her Vascular surgeon Dr. Parsons in 1 week. Hospital Course Hospital Course: Her BP is better controlled. Plavix was added to her regimen. Physical Exam Vital Signs: Temp Pulse Resp BP Pulse Ox 98.7 F 75 17 125/61 94 04/17/17 13:15 04/17/17 13:15 04/17/17 13:15 04/17/17 13:15 04/17/17 13:15 Intake & Output 04/16/17 04/17/17 04/18/17 06:59 06:59 06:59 Intake Total 840 847 300 Output Total 650 Balance 190 847 300 Weight 58.8 kg 58.3 kg Additional comments: Middle-aged female sitting up in bed not in acute distress Lungs: Clear to auscultation bilaterally Cardiac: S1-S2 regular no murmurs heard no peripheral edema no cyanosis Abdomen: Soft, no focal tenderness normal bowel sounds Skin: Warm and dry Neurologic: Awake and alert oriented 2. No facial droop. Speech is clear and fluent. Motor strength 5 out of 5 bilateral upper and lower extremities Results Laboratory Results: 04/13/17 04:56 04/13/17 04:56 Impressions: Head CTA 03/27/17 06:10 IMPRESSION: 1. Redemonstrated occlusion of the intracranial right ICA to the level of the paraclinoid right ICA where there is reconstitution of flow through multiple channels of the [place]. Symmetric flow within the bilateral anterior middle cerebral arteries. 2. Redemonstrated complete occlusion of the right common and cervical internal carotid arteries beginning within 1 cm of its origin. 3. The left common and internal carotid arteries are widely patent. No evidence of stenosis. Postoperative change compatible with endarterectomy. This exam was performed according to our departmental dose-optimization program, which includes automated exposure control, adjustment of the mA and/or kV according to patient size and/or use of iterative reconstruction technique. Neck CTA 03/27/17 06:10 IMPRESSION: 1. Redemonstrated occlusion of the intracranial right ICA to the level of the paraclinoid right ICA where there is reconstitution of flow through multiple channels of the [place]. Symmetric flow within the bilateral anterior middle cerebral arteries. 2. Redemonstrated complete occlusion of the right common and cervical internal carotid arteries beginning within 1 cm of its origin. 3. The left common and internal carotid arteries are widely patent. No evidence of stenosis. Postoperative change compatible with endarterectomy. This exam was performed according to our departmental dose-optimization program, which includes automated exposure control, adjustment of the mA and/or kV according to patient size and/or use of iterative reconstruction technique. Chest X-Ray 03/28/17 00:00 IMPRESSION: NO ACUTE RADIOGRAPHIC FINDING IN THE CHEST. Head MRI 03/29/17 00:00 IMPRESSION: ACUTE INFARCTION INVOLVING THE LEFT GREATER THAN RIGHT OCCIPITAL AND PARIETAL LOBES IN A WATERSHED DISTRIBUTION BETWEEN THE CALIBRATION TECHNICIAN AND MCA TERRITORIES. CORRELATE WITH HYPOTENSION. ADDITIONAL SENESCENT CHANGE ABOVE INCLUDING CHRONIC OCCLUSION OF THE RIGHT INTERNAL CAROTID ARTERY. EVIDENCE OF ACUTE STROKE: YES. WATERSHED DISTRIBUTION ABOVE. Head CT 04/09/17 15:42 IMPRESSION: Resolving infarcts. No evidence of hemorrhage. EVIDENCE OF ACUTE STROKE: NO. Plan Time Spent: Greater than 30 Minutes
== END 2017-04-17 13:40 | disposition home or self-care (01) | DRG 64 ==
LOC: ER 05:55 → UNDOADMOB 08:45 → EH 08:45 → 4N 11:01 → EH 11:01 → 4N 03-28 21:07 → OBSVTOIN 03-29 14:00 → 3W 03-29 14:00 → INTOOBSV 03-29 14:00 → 3W 03-29 14:34 → 4N 03-29 14:34 → 3W 04-13 11:53
PROVIDERS: ADMIT Pediatrics; ATTEND Pediatrics
DX: I63.8 Other cerebral infarction (principal); J69.0 Pneumonitis due to inhalation of food and vomit; I67.4 Hypertensive encephalopathy; I16.1 Hypertensive emergency; K56.49 Other impaction of intestine; H53.9 Unspecified visual disturbance; R53.1 Weakness; E83.51 Hypocalcemia; R33.9 Retention of urine, unspecified; I10 Essential (primary) hypertension; I73.9 Peripheral vascular disease, unspecified; I65.23 Occlusion and stenosis of bilateral carotid arteries; Z90.710 Acquired absence of both cervix and uterus; Z87.891 Personal history of nicotine dependence; Z98.890 Other specified postprocedural states; Z79.82 Long term (current) use of aspirin; D72.829 Elevated white blood cell count, unspecified; E86.0 Dehydration
CPT/HCPCS: 36415; 70450; 70496; 70498; 70553; 71010; 80048; 80053; 80061; 80307; 81001; 82272; 82306; 82397; 82962; 83036; 83735; 83970; 84100; 85025; 85027; 93005; 93010; 93306; 96374; 96375; 99291; A9577; G0378; J0360; J0780; J1100; J1200; J1630; J2060; J2405; J2765; J3490; J7030; J7120; S0028